=== PATIENT | female | born 1970 | race Caucasian/White ===

== ENCOUNTER 2020-03-30 12:49 | Emergency (ER) | payer SELFPAY ==
[~2020-03-30] VITALS: Ht 167.6 cm; Wt 57.3 kg
[2020-03-30] MEDS ORDERED: METOCLOPRAMIDE HCL 10 MG/2 ML VIAL. IV ONE (13:15)
[2020-03-30] MEDS ORDERED: KETOROLAC 30 MG/ML VIAL. IV ONE (13:15)
[2020-03-30] MEDS ORDERED: IV NORMAL SALINE 1,000ML 1,000 ML IV ONE (13:15)
[2020-03-30] MEDS ORDERED: diphenhydrAMINE 50 MG/ML VIAL IVP ONE (13:15)
[2020-03-30] MEDS ORDERED: ASPIRIN CHEWABLE 81 MG TABLET. PO ONE (13:15)
[2020-03-30 13:23] LABS: BASO # 0.1 x10^3/uL (0.0-0.2); BASO % 1 % (0-3); EOS # 0.1 x10^3/uL (0.0-0.7); EOS % 1 % (0-3); HEMATOCRIT 44.7 % (36.0-47.0); LYMPH # 1.9 x10^3/uL (1.0-4.8); LYMPH % 15 % (24-48); MEAN CORPUSCULAR HEMOGLOBIN 32 pg (25-35); MEAN CORPUSCULAR HGB CONC 33 g/dL (31-37); MEAN CORPUSCULAR VOLUME 97 fL (79-100); MONO # 0.8 x10^3/uL (0.0-1.1); MONO % 6 % (0-9); NEUT # 10.1 x10^3uL (1.8-7.7); NEUT % 78 % (31-73); PLATELET COUNT 164 x10^3/uL (140-400); RED BLOOD COUNT 4.63 x10^6/uL (3.50-5.40); WHITE BLOOD COUNT 12.9 x10^3/uL (4.0-11.0)
[2020-03-30 13:26] LABS: CALCIUM 9.3 mg/dL (8.5-10.1); CREATININE 0.9 mg/dL (0.6-1.0); GFR 66.3
--- NOTE | 2020-03-30 13:26 | RAD ---
Single AP view of the chest. Comparison: None. Indication: Chest pain Findings: The heart is not enlarged. There is no pneumothorax or effusion. No air space or interstitial disease. Impression: 1. No acute cardiopulmonary process. Electronically signed by: Rod Lockett MD (03/30/2020 1:22 PM) [id number]
[2020-03-30 13:31] LABS: ALBUMIN 3.8 g/dL (3.4-5.0); ALBUMIN/GLOBULIN RATIO 1.2 (1.0-1.7); TOTAL BILIRUBIN 0.4 mg/dL (0.2-1.0)
--- NOTE | 2020-03-30 13:35 | EKG ---
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
--- NOTE | 2020-03-30 14:33 | PHYS DOC ---
General Adult EDM: Chief Complaint: CHEST PAIN HPI: HPI: Patient is a 49-year-old female who presents with a litany of complaints today. She has had some vague sharp chest pain that she states is worse with a deep breath. She also states she is felt generally very weak she denies any fever chills or sweats. She denies any shortness of breath or dyspnea on exertion. She has had a headache and describes both photophobia phonophobia. She has had some nausea associated with her headache. She states her symptoms started several hours ago [] Review of Systems: Review of Systems: Constitutional: Denies fever or chills Eyes: Denies change in visual acuity HENT: Denies nasal congestion or sore throat Respiratory: Denies cough or shortness of breath Cardiovascular: Per HPI a GI: Denies abdominal pain, nausea, vomiting, bloody stools or diarrhea : Denies dysuria Musculoskeletal: Denies back pain or joint pain Integument: Denies rash Neurologic: Reports headache Endocrine: Denies polyuria or polydipsia Lymphatic: Denies swollen glands Psychiatric: Denies depression or anxiety Heart Score: Risk Factors: Risk Factors: DM, Current or recent (<one month) smoker, HTN, HLP, family history of CAD, obesity. Risk Scores: Score 0 - 3: 2.5% MACE over next 6 weeks - Discharge Home Score 4 - 6: 20.3% MACE over next 6 weeks - Admit for Clinical Observation Score 7 - 10: 72.7% MACE over next 6 weeks - Early Invasive Strategies Current Medications: Current Meds: Current Medications Medications (Trade) Dose Ordered Sig/[facility] Start Time Stop Time Status Last Admin Dose Admin Aspirin (Aspirin Chewable) 324 mg 1X ONCE 03/30/20 13:15 03/30/20 13:16 DC 03/30/20 13:15 324 MG Diphenhydramine HCl (Benadryl) 25 mg 1X ONCE 03/30/20 13:15 03/30/20 13:16 DC 03/30/20 13:15 25 MG Ketorolac Tromethamine (Toradol 30mg Vial) 30 mg 1X ONCE 03/30/20 13:15 03/30/20 13:16 DC 03/30/20 13:15 30 MG Metoclopramide HCl (Reglan Vial) 10 mg 1X ONCE 03/30/20 13:15 03/30/20 13:16 DC 03/30/20 13:15 10 MG Sodium Chloride 1,000 ml @ 1,000 mls/hr 1X ONCE 03/30/20 13:15 03/30/20 14:14 DC 03/30/20 13:15 1,000 MLS/HR Allergies: Allergies: Allergies Uncoded Allergies Type Severity Reaction Last Updated Verified PENICILLIN Allergy Unknown 03/30/20 SULFA Allergy Unknown 03/30/20 Physical Exam: PE: Constitutional: Well developed, well nourished, no acute distress, non-toxic appearance. [] HENT: Normocephalic, atraumatic, bilateral external ears normal, oropharynx moist, no oral exudates, nose normal. [] Eyes: PERRLA, EOMI, conjunctiva normal, no discharge. [] Neck: Normal range of motion, no tenderness, supple, no stridor. [] Cardiovascular:Heart rate regular rhythm, no murmur [] Lungs & Thorax: Bilateral breath sounds clear to auscultation [] Abdomen: Bowel sounds normal, soft, no tenderness, no masses, no pulsatile masses. [] Skin: Warm, dry, no erythema, no rash. [] Back: No tenderness, no CVA tenderness. [] Extremities: No tenderness, no cyanosis, no clubbing, ROM intact, no edema. [] Neurologic: Alert and oriented X 3, normal motor function, normal sensory function, no focal deficits noted. [] Psychologic: Affect normal, judgement normal, mood normal. [] Current Patient Data: Labs: Laboratory Tests Test 03/30/20 13:05 White Blood Count 12.9 x10^3/uL (4.0-11.0) H Red Blood Count 4.63 x10^6/uL (3.50-5.40) Hemoglobin 15.0 g/dL (12.0-15.5) Hematocrit 44.7 % (36.0-47.0) Mean Corpuscular Volume 97 fL (79-100) Mean Corpuscular Hemoglobin 32 pg (25-35) Mean Corpuscular Hemoglobin Concent 33 g/dL (31-37) Red Cell Distribution Width 14.0 % (11.5-14.5) Platelet Count 164 x10^3/uL (140-400) Neutrophils (%) (Auto) 78 % (31-73) H Lymphocytes (%) (Auto) 15 % (24-48) L Monocytes (%) (Auto) 6 % (0-9) Eosinophils (%) (Auto) 1 % (0-3) Basophils (%) (Auto) 1 % (0-3) Neutrophils # (Auto) 10.1 x10^3uL (1.8-7.7) H Lymphocytes # (Auto) 1.9 x10^3/uL (1.0-4.8) Monocytes # (Auto) 0.8 x10^3/uL (0.0-1.1) Eosinophils # (Auto) 0.1 x10^3/uL (0.0-0.7) Basophils # (Auto) 0.1 x10^3/uL (0.0-0.2) Sodium Level 140 mmol/L (136-145) Potassium Level 4.0 mmol/L (3.5-5.1) Chloride Level 104 mmol/L (98-107) Carbon Dioxide Level 24 mmol/L (21-32) Anion Gap 12 (6-14) Blood Urea Nitrogen 15 mg/dL (7-20) Creatinine 0.9 mg/dL (0.6-1.0) Estimated GFR (Cockcroft-Gault) 66.3 BUN/Creatinine Ratio 17 (6-20) Glucose Level 105 mg/dL (70-99) H Calcium Level 9.3 mg/dL (8.5-10.1) Total Bilirubin 0.4 mg/dL (0.2-1.0) Aspartate Amino Transferase (AST) 25 U/L (15-37) Alanine Aminotransferase (ALT) 40 U/L (14-59) Alkaline Phosphatase 162 U/L (46-116) H Troponin I Quantitative < 0.017 ng/mL (0-0.055) Total Protein 7.0 g/dL (6.4-8.2) Albumin 3.8 g/dL (3.4-5.0) Albumin/Globulin Ratio 1.2 (1.0-1.7) EKG: EKG: EKG: Normal sinus rhythm rate of [address]-T changes [] Radiology/Procedures: Radiology/Procedures: [] Impressions: REASON: chest pain PROCEDURE: CHEST AP ONLY Single AP view of the chest. Comparison: None. Indication: Chest pain Findings: The heart is not enlarged. There is no pneumothorax or effusion. No air space or interstitial disease. Impression: 1. No acute cardiopulmonary process. Course & Med Decision Making: Course & Med Decision Making Pertinent Labs and Imaging studies reviewed. (See chart for details) [ED course: Evaluation reveals a 49-year-old female with headache and sharp chest pain. She was given IV normal saline, Toradol, Reglan and Benadryl with complete resolution of her symptoms. I do not believe this was cardiac in nature. Given the fact that she feels much better I feel she is safe for discharge home.] Dragon Disclaimer: Dragon Disclaimer: This electronic medical record was generated, in whole or in part, using a voice recognition dictation system. Departure Departure: Impression: Primary Impression: Atypical chest pain Additional Impression: Migraine Qualified Codes: G43.009 - Migraine without aura, not intractable, without status migrainosus Disposition: HOME/RESIDENCE PRIOR TO ADM Condition: STABLE Referrals: PCP,NO (PCP) Patient Instructions: Chest Pain (Nonspecific), General Headache Without Cause Additional Instructions: Return to the emergency department with any new or concerning symptoms Justification of Admission: Justification of Admission: Justification of Admission Dx: ALEXA Singh DO Mar 30, 2020 14:33
[2020-03-30 15:02] VITALS: BP 113/58
== END 2020-03-30 14:40 | disposition home or self-care (01) ==
LOC: ER 12:49
DX: R07.89 Other chest pain (principal); G43.009 Migraine without aura, not intractable, without status migrainosus; Z88.0 Allergy status to penicillin; Z88.2 Allergy status to sulfonamides
CPT/HCPCS: 36415; 71045; 80053; 84484; 85025; 93005; 96374; 96375; 99285; J1200; J1885; J2765; J7030

== ENCOUNTER 2020-04-07 03:04 | Emergency (ER) | payer SELFPAY ==
[~2020-04-07] VITALS: Ht 167.6 cm; Wt 56.6 kg
[2020-04-07] MEDS ORDERED: LORazepam 1 MG TABLET PO ONE (03:45)
[2020-04-07 03:54] LABS: BASO % 0 % (0-3); EOS # 0.1 x10^3/uL (0.0-0.7); EOS % 1 % (0-3); HEMATOCRIT 45.2 % (36.0-47.0); HEMOGLOBIN 15.6 g/dL (12.0-15.5); LYMPH % 29 % (24-48); MEAN CORPUSCULAR HEMOGLOBIN 33 pg (25-35); MEAN CORPUSCULAR HGB CONC 35 g/dL (31-37); MEAN CORPUSCULAR VOLUME 95 fL (79-100); MONO # 0.6 x10^3/uL (0.0-1.1); MONO % 6 % (0-9); NEUT # 6.5 x10^3uL (1.8-7.7); NEUT % 64 % (31-73); PLATELET COUNT 163 x10^3/uL (140-400); RED BLOOD COUNT 4.74 x10^6/uL (3.50-5.40); RED CELL DISTRIBUTION WIDTH 13.7 % (11.5-14.5); WHITE BLOOD COUNT 10.2 x10^3/uL (4.0-11.0)
[2020-04-07 03:55] LABS: CALCIUM 9.3 mg/dL (8.5-10.1); CREATININE 1.3 mg/dL (0.6-1.0); GFR 43.4; POTASSIUM 3.3 mmol/L (3.5-5.1)
--- NOTE | 2020-04-07 04:06 | PHYS DOC ---
Past History Past Medical History: Anxiety, Depression, High Cholesterol, Hypertension, ND, Other Additional Past Medical Histor: TACHYCARDIA (KEELY MAY MD) Past Surgical History: Other Additional Past Surgical Histo: CARIDAC STENT (KEELY MAY MD) Alcohol Use: None (KEELY MAY MD) Adult General Chief Complaint Chief Complaint: DIARRHEA HPI HPI Patient is a 49 year old female who presents with multiple complaints. Patient states that for the last 24 hours she has been having episodes of diarrhea. She has had 5 episodes total. She initially thought that this was due to increase fluid intake. She also has some mild epigastric abdominal pain. Denies any nausea or vomiting. She has not had any constipation. She states this evening she started getting nervous that she could have the coronavirus. She got short of breath, dizzy, shaky. She is unsure if this is related to anxiety or is ca used by something else. (KEELY MAY MD) Review of Systems Review of Systems General: Denies fever, chills, sweats, fatigue Eyes: Denies drainage, blurred vision, eye redness HENT: Denies rhinorrhea, sore throat, earache Respiratory: Denies cough, shortness of breath, wheezing Cardiac: Denies edema, palpitations, chest pain GI: Reports nausea, epigastric pain, diarrhea MSK: Denies neck pain, back pain Skin: Denies rash, jaundice Neuro: Denies headache, dizziness Psychiatric: Denies SI/HI (KEELY MAY MD) Current Medications Current Medications Current Medications Medications (Trade) Dose Ordered Sig/Christina Start Time Stop Time Status Last Admin Dose Admin Lorazepam (Ativan) 1 mg 1X ONCE 04/07/20 03:45 04/07/20 03:46 UNV 04/07/20 03:48 1 MG (KEELY MAY MD) Allergies Allergies Allergies Uncoded Allergies Type Severity Reaction Last Updated Verified PENICILLIN Allergy Unknown 03/30/20 SULFA Allergy Unknown 03/30/20 (KEELY MAY MD) Physical Exam Physical Exam General: Awake, alert, NAD. Well Nourished, well hydrated. Cooperative HEENT: Atraumatic, EOMI, PERRL, airway patent, moist oral mucosa Neck: Supple, trachea midline Respiratory: CTA bilaterally, normal effort, no wheezing/crackles CV: RRR, no murmur, cap refill <2 GI: Soft, nondistended, nontender, no masses MSK: No obvious deformities Skin: Warm, dry, intact Neuro: A&O x3, speech NL, sensory and motor grossly intact, no focal deficits Psych: Normal affect, anxious, tearful d, not suicidal or homicidal (KEELY MAY MD) Current Patient Data Vital Signs Vital Signs Date Time Temp Pulse Resp B/P (MAP) Pulse Ox O2 Delivery O2 Flow Rate FiO2 04/07/20 03:21 97.3 100 18 133/52 (79) 98 Room Air Lab Results Laboratory Tests Test 04/07/20 03:20 White Blood Count 10.2 x10^3/uL (4.0-11.0) Red Blood Count 4.74 x10^6/uL (3.50-5.40) Hemoglobin 15.6 g/dL (12.0-15.5) H Hematocrit 45.2 % (36.0-47.0) Mean Corpuscular Volume 95 fL (79-100) Mean Corpuscular Hemoglobin 33 pg (25-35) Mean Corpuscular Hemoglobin Concent 35 g/dL (31-37) Red Cell Distribution Width 13.7 % (11.5-14.5) Platelet Count 163 x10^3/uL (140-400) Neutrophils (%) (Auto) 64 % (31-73) Lymphocytes (%) (Auto) 29 % (24-48) Monocytes (%) (Auto) 6 % (0-9) Eosinophils (%) (Auto) 1 % (0-3) Basophils (%) (Auto) 0 % (0-3) Neutrophils # (Auto) 6.5 x10^3uL (1.8-7.7) Lymphocytes # (Auto) 3.0 x10^3/uL (1.0-4.8) Monocytes # (Auto) 0.6 x10^3/uL (0.0-1.1) Eosinophils # (Auto) 0.1 x10^3/uL (0.0-0.7) Basophils # (Auto) 0.0 x10^3/uL (0.0-0.2) (KEELY MAY MD) EKG EKG [] (KEELY MAY MD) Radiology/Procedures Radiology/Procedures [] (KEELY MAY MD) Impressions: EXAM: CT Abdomen and Pelvis without IV contrast INDICATION: Reason: abdominal pain, hematuria / Spl. Instructions: / History: TECHNIQUE: Multi-detector row CT images were acquired from the lung bases through the abdomen and pelvis without the use of IV contrast. Sagittal and coronal images were acquired from the transaxial data. All CT scans performed at this facility utilize dose optimization techniques as appropriate to the exam, including the following: Automated exposure control and adjustment of the mA and/or KV according to patient size (this includes techniques or standardized protocols for targeted exams where dose is indication/reason for exam). ORAL CONTRAST: None COMPARISON: None FINDINGS: The absence of IV contrast limits evaluation of soft tissue pathology. LOWER CHEST: Unremarkable LIVER: Unremarkable BILIARY SYSTEM: Gallbladder is unremarkable. Bile ducts are not dilated. PANCREAS: Unremarkable SPLEEN: Unremarkable ADRENALS: Unremarkable KIDNEYS & URETERS: Minimal bilateral right greater than left pelviectasis is present with possible calcifications in the right mid ureter (image 87 of axial series 2) measuring 3.6 mm. Possible additional calcified stones in the presence slightly more distally as well. BLADDER: Unremarkable REPRODUCTIVE ORGANS: Unremarkable GASTROINTESTINAL: The stomach, small bowel, and colon are unremarkable. The appendix is normal. MESENTERY/PERITONEUM/RETROPERITONEUM: Unremarkable VASCULAR: Unremarkable LYMPH NODES: No adenopathy OSSEOUS & SOFT TISSUES: Unremarkable IMPRESSION: Possible stones in the mid to distal right ureter as described associated with right greater than left mild bilateral pelviectasis. Electronically signed by: Massimo Christianson MD (04/07/2020 5:56 AM) [facility] [place] DICTATED AND SIGNED BY: MASSIMO CHRISTIANSON MD DATE: 04/07/20 0556 CC: KEELY MAY MD; PCP,NO ~ (LINDA AGUILERA DO) Course & Med Decision Making Course & Med Decision Making Pertinent Labs and Imaging studies reviewed. (See chart for details) Patient is a 49-year-old female who presents to the emergency room with epigastric abdominal pain, diarrhea, anxiety. Patient does have some diarrhea as she does not have any other significant symptoms that would be concerning for coronavirus 19. She is overall well-appearing though anxious. Should be given Ativan to help with symptoms and will be reevaluated after that time. Cardiac work-up was ordered given her epigastric pain and history of cardiac disease including a troponin, chest x-ray, EKG. Abdominal labs were also ordered. Patient's abdomen is overall minimally tender. (KEELY MAY MD) Course & Med Decision Making The patient appears to have kidney stones in her ureters. The largest being 3.6 mm. This should pass. I will discharge her with a prescription for [place] 5/325 in case she has significant pain. She is stable for discharge at this time. (LINDA AGUILERA DO) Dragon Disclaimer Dragon Disclaimer This electronic medical record was generated, in whole or in part, using a voice recognition dictation system. (KEELY MAY MD) Departure Departure: Impression: Primary Impression: Diarrhea Additional Impressions: Epigastric abdominal pain Anxiety Kidney stone Disposition: HOME/RESIDENCE PRIOR TO ADM Condition: STABLE Referrals: PCP,NO (PCP) Scripts Hydrocodone Bit/Acetaminophen (NOR[place] 5-325 TABLET) 1 Each Tablet 1 TAB PO PRN Q6HRS PRN for PAIN, #10 TAB 0 Refills Prov: LINDA AGUILERA DO 04/07/20 Justification of Admission: Justification of Admission: Justification of Admission Dx: No (KEELY MAY MD) Problem Qualifiers KEELY MAY MD Apr 07, 2020 04:06 LINDA AGUILERA DO Apr 07, 2020 06:48
[2020-04-07 04:09] LABS: ALBUMIN 3.9 g/dL (3.4-5.0); TOTAL BILIRUBIN 0.6 mg/dL (0.2-1.0); TOTAL PROTEIN 7.7 g/dL (6.4-8.2)
[2020-04-07] MEDS ORDERED: IV NORMAL SALINE 1,000ML 1,000 ML IV ONE (04:45)
[2020-04-07 04:47] LABS: BILIRUBIN,URINE NEG (NEG); CLARITY,URINE CLEAR; COLOR,URINE YELLOW; GLUCOSE,URINE NEG (NEG); NITRITE,URINE NEG (NEG); RBC,URINE OCC /HPF (0-2)
[2020-04-07 04:48] LABS: BACTERIA,URINE FEW /HPF (0-FEW); SQUAMOUS EPITHELIAL CELL,UR FEW /LPF; WBC,URINE OCC /HPF (0-4)
--- NOTE | 2020-04-07 05:00 | RAD ---
EXAM: CHEST PA LATERAL INDICATION: Reason: sob / Spl. Instructions: / History: . TECHNIQUE: PA and lateral views COMPARISON: 03/30/2020 chest x-ray FINDINGS: The heart size is normal. The great vessels appear unremarkable. There is no hilar or mediastinal mass. The lungs are clear. There is no pleural effusion or pneumothorax. There are no significant osseous abnormalities. IMPRESSION: No active cardiopulmonary disease. Electronically signed by: Fernando Christianson MD (04/07/2020 4:57 AM) [facility] [place]
--- NOTE | 2020-04-07 05:48 | EKG ---
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
--- NOTE | 2020-04-07 05:59 | RAD ---
EXAM: CT Abdomen and Pelvis without IV contrast INDICATION: Reason: abdominal pain, hematuria / Spl. Instructions: / History: TECHNIQUE: Multi-detector row CT images were acquired from the lung bases through the abdomen and pelvis without the use of IV contrast. Sagittal and coronal images were acquired from the transaxial data. All CT scans performed at this facility utilize dose optimization techniques as appropriate to the exam, including the following: Automated exposure control and adjustment of the mA and/or KV according to patient size (this includes techniques or standardized protocols for targeted exams where dose is indication/reason for exam). ORAL CONTRAST: None COMPARISON: None FINDINGS: The absence of IV contrast limits evaluation of soft tissue pathology. LOWER CHEST: Unremarkable LIVER: Unremarkable BILIARY SYSTEM: Gallbladder is unremarkable. Bile ducts are not dilated. PANCREAS: Unremarkable SPLEEN: Unremarkable ADRENALS: Unremarkable KIDNEYS & URETERS: Minimal bilateral right greater than left pelviectasis is present with possible calcifications in the right mid ureter (image 87 of axial series 2) measuring 3.6 mm. Possible additional calcified stones in the presence slightly more distally as well. BLADDER: Unremarkable REPRODUCTIVE ORGANS: Unremarkable GASTROINTESTINAL: The stomach, small bowel, and colon are unremarkable. The appendix is normal. MESENTERY/PERITONEUM/RETROPERITONEUM: Unremarkable VASCULAR: Unremarkable LYMPH NODES: No adenopathy OSSEOUS & SOFT TISSUES: Unremarkable IMPRESSION: Possible stones in the mid to distal right ureter as described associated with right greater than left mild bilateral pelviectasis. Electronically signed by: Fernando Christianson MD (04/07/2020 5:56 AM) [facility] [place]
[2020-04-07] MEDS ORDERED: HYDR-3165 PO (06:47)
[2020-04-07 07:03] VITALS: BP 113/50
== END 2020-04-07 07:03 | disposition home or self-care (01) ==
LOC: ER 03:04
DX: R19.7 Diarrhea, unspecified (principal); R10.13 Epigastric pain; F41.9 Anxiety disorder, unspecified; F32.9 Major depressive disorder, single episode, unspecified; E78.00 Pure hypercholesterolemia, unspecified; I10 Essential (primary) hypertension; I25.2 Old myocardial infarction; Z87.442 Personal history of urinary calculi; Z88.0 Allergy status to penicillin; Z88.2 Allergy status to sulfonamides
CPT/HCPCS: 36415; 71046; 74176; 80053; 81001; 83690; 84484; 85025; 93005; 96360; 96361; 99285; J7030

== ENCOUNTER 2020-04-19 18:37 | Inpatient (IN) | payer SELFPAY ==
[~2020-04-19] VITALS: Ht 167.6 cm; Wt 55.3 kg
[~2020-04-19 18:37] MED LIST: HYDR-3165 PO
--- NOTE | 2020-04-19 18:46 | PHYS DOC ---
Past History Past Medical History: Anxiety, Depression, High Cholesterol, Hypertension, NM, Other Additional Past Medical Histor: TACHYCARDIA Past Surgical History: Other Additional Past Surgical Histo: CARIDAC STENT Smoking: Less than 1pk/day Alcohol Use: None General Adult EDM: Chief Complaint: chest pain HPI: HPI: Patient is a 49 year old female who presents for evaluation of central and left- sided chest pain that started 2 hours prior to arrival at rest. Patient had some shortness of air as well. Patient has multiple cardiac risk factors including hypertension, hyperlipidemia, known coronary artery disease, patient has cardiac stents placed about 4 years ago at [facility]. Patient has seen a evs attendant in the past several weeks and her beta-henrietta dose was reduced to 12.5 mg Review of Systems: Review of Systems: Constitutional: Denies fever or chills Eyes: Denies change in visual acuity HENT: Denies nasal congestion or sore throat Respiratory: Denies cough has shortness of breath Cardiovascular: has chest pain no edema GI: Denies abdominal pain, nausea, vomiting, bloody stools or diarrhea : Denies dysuria Musculoskeletal: Denies back pain or joint pain Integument: Denies rash Neurologic: Denies headache, focal weakness or sensory changes Endocrine: Denies polyuria or polydipsia Lymphatic: Denies swollen glands Psychiatric: Denies depression or anxiety Heart Score: HEART Score for Chest Pain: HEART Score for Chest Pain Response (Comments) Value History Slighlty/Non-Suspicious 0 ECG Nonspecific Repolarizatio 1 Age >45 - < 65 1 Risk Factors >3 Risk Factors or Hx CAD 2 Troponin < Normal Limit 0 Total 4 Risk Factors: Risk Factors: DM, Current or recent (<one month) smoker, HTN, HLP, family history of CAD, obesity. Risk Scores: Score 0 - 3: 2.5% MACE over next 6 weeks - Discharge Home Score 4 - 6: 20.3% MACE over next 6 weeks - Admit for Clinical Observation Score 7 - 10: 72.7% MACE over next 6 weeks - Early Invasive Strategies Allergies: Allergies: Allergies Uncoded Allergies Type Severity Reaction Last Updated Verified PENICILLIN Allergy Unknown 03/30/20 SULFA Allergy Unknown 03/30/20 Physical Exam: PE: Constitutional: Well developed, well nourished, mild acute distress, non-toxic appearance. [] HENT: Normocephalic, atraumatic, bilateral external ears normal, oropharynx moist, no oral exudates, nose normal. [] Eyes: PERRL, EOMI, conjunctiva normal, no discharge. [] Neck: Normal range of motion, no tenderness, supple. [] Cardiovascular:Heart rate regular rhythm, no murmur [] Lungs & Thorax: Bilateral breath sounds clear to auscultation [] Abdomen: Bowel sounds normal, soft, mild right side tenderness, no masses, no pulsatile masses. [] Skin: Warm, dry, no erythema, no rash. [] Back: No tenderness, no CVA tenderness. [] Extremities: No tenderness, no cyanosis, ROM intact, no edema. [] Neurologic: Alert and oriented, normal motor function, normal sensory function, no focal deficits noted. [] Psychologic: Affect normal, judgement normal, mood mildly anxious. [] Current Patient Data: Labs: Laboratory Tests Test 04/19/20 18:35 04/19/20 19:05 White Blood Count 8.4 x10^3/uL Red Blood Count 4.86 x10^6/uL Hemoglobin 15.9 g/dL Hematocrit 47.1 % Mean Corpuscular Volume 97 fL Mean Corpuscular Hemoglobin 33 pg Mean Corpuscular Hemoglobin Concent 34 g/dL Red Cell Distribution Width 14.0 % Platelet Count 169 x10^3/uL Neutrophils (%) (Auto) 68 % Lymphocytes (%) (Auto) 23 % Monocytes (%) (Auto) 8 % Eosinophils (%) (Auto) 1 % Basophils (%) (Auto) 1 % Neutrophils # (Auto) 5.8 x10^3uL Lymphocytes # (Auto) 1.9 x10^3/uL Monocytes # (Auto) 0.6 x10^3/uL Eosinophils # (Auto) 0.1 x10^3/uL Basophils # (Auto) 0.0 x10^3/uL Sodium Level 139 mmol/L Potassium Level 3.6 mmol/L Chloride Level 101 mmol/L Carbon Dioxide Level 27 mmol/L Anion Gap 11 Blood Urea Nitrogen 12 mg/dL Creatinine 1.0 mg/dL Estimated GFR (Cockcroft-Gault) 58.7 BUN/Creatinine Ratio 12 Glucose Level 84 mg/dL Calcium Level 9.2 mg/dL Total Bilirubin 0.6 mg/dL Aspartate Amino Transf (AST/SGOT) 29 U/L Alanine Aminotransferase (ALT/SGPT) 38 U/L Alkaline Phosphatase 163 U/L Troponin I Quantitative < 0.017 ng/mL Total Protein 7.1 g/dL Albumin 3.9 g/dL Albumin/Globulin Ratio 1.2 Lipase 87 U/L Urine Collection Type Unknown Urine Color Yellow Urine Clarity Hazy Urine pH 6.0 Urine Specific [place] 1.010 Urine Protein Neg Urine Glucose (UA) Neg mg/dL Urine Ketones (Stick) Neg mg/dL Urine Blood Neg Urine Nitrite Neg Urine Bilirubin Neg Urine Urobilinogen Dipstick 0.2 mg/dL Urine Leukocyte Esterase Trace Urine RBC 3-5 /HPF Urine WBC 5-10 /HPF Urine Squamous Epithelial Cells Many /LPF Urine Bacteria Mod /HPF Current Medications Medications (Trade) Dose Ordered Sig/Christina Route PRN Reason Start Time Stop Time Status Last Admin Dose Admin Aspirin (Aspirin Chewable) 243 mg 1X ONCE PO 04/19/20 19:00 04/19/20 19:01 DC 04/19/20 19:07 EKG: EKG: EKG showed normal sinus rhythm, rate 70, leftward axis, nonspecific ST segment change and flattened T wave in lead aVL, not STEMI read at 1849 [] Radiology/Procedures: Radiology/Procedures: [place] [address] IMAGING REPORT Signed PATIENT: AMANUEL RUFF IACCOUNT: [id number] : 1970 LOCATION: ER AGE: 49 SEX: F EXAM STATUS: REG ER ORD. PHYSICIAN: OMAR MOYA DO REASON: chest pain PROCEDURE: PORTABLE CHEST 1V Exam: Chest one view INDICATION: Chest pain TECHNIQUE: Frontal view of the chest Comparisons: 04/07/2020 FINDINGS: The cardiomediastinal silhouette and pulmonary vessels are within normal limits. The lung and pleural spaces are clear. IMPRESSION: No acute cardiopulmonary process. Electronically signed by: Diana Rosales MD (04/19/2020 7:10 PM) [id number] DICTATED AND SIGNED BY: DIANA ROSALES MD DATE: 04/19/20 1910 CC: PCP,NO; OMAR MOYA DO ~ [] Course & Med Decision Making: Course & Med Decision Making Pertinent Labs and Imaging studies reviewed. (See chart for details) [] Dragon Disclaimer: Dragon Disclaimer: This electronic medical record was generated, in whole or in part, using a voice recognition dictation system. 1957 patient has some continued mild substernal chest pain. First troponin, EKG and chest x-ray were unremarkable. Patient's evs attendant is at [facility]. Dr. Reddy is the hospitalist on duty and has accepted patient for telemetry bed for observation Departure Departure: Impression: Primary Impression: Precordial chest pain Additional Impression: Acute UTI Disposition: ADMITTED INPATIENT Admitting Physician: Rustam Reddy Condition: STABLE Referrals: PCP,NO (PCP) Justification of Admission: Justification of Admission: Justification of Admission Dx: Yes Angina: Symp at Rest OMAR MOYA DO Apr 19, 2020 18:46
[2020-04-19] MEDS ORDERED: ASPIRIN CHEWABLE 81 MG TABLET. PO ONE (19:00)
--- NOTE | 2020-04-19 19:13 | RAD ---
Exam: Chest one view INDICATION: Chest pain TECHNIQUE: Frontal view of the chest Comparisons: 04/07/2020 FINDINGS: The cardiomediastinal silhouette and pulmonary vessels are within normal limits. The lung and pleural spaces are clear. IMPRESSION: No acute cardiopulmonary process. Electronically signed by: Diana Hebert MD (04/19/2020 7:10 PM) [id number]
[2020-04-19 19:30] LABS: BASO % 1 % (0-3); EOS # 0.1 x10^3/uL (0.0-0.7); EOS % 1 % (0-3); HEMATOCRIT 47.1 % (36.0-47.0); HEMOGLOBIN 15.9 g/dL (12.0-15.5); LYMPH # 1.9 x10^3/uL (1.0-4.8); LYMPH % 23 % (24-48); MEAN CORPUSCULAR HEMOGLOBIN 33 pg (25-35); MEAN CORPUSCULAR HGB CONC 34 g/dL (31-37); MEAN CORPUSCULAR VOLUME 97 fL (79-100); MONO # 0.6 x10^3/uL (0.0-1.1); MONO % 8 % (0-9); NEUT # 5.8 x10^3uL (1.8-7.7); NEUT % 68 % (31-73); PLATELET COUNT 169 x10^3/uL (140-400); RED BLOOD COUNT 4.86 x10^6/uL (3.50-5.40); WHITE BLOOD COUNT 8.4 x10^3/uL (4.0-11.0)
[2020-04-19 19:36] LABS: CALCIUM 9.2 mg/dL (8.5-10.1); GFR 58.7; POTASSIUM 3.6 mmol/L (3.5-5.1)
[2020-04-19 19:38] LABS: BILIRUBIN,URINE NEG (NEG); CLARITY,URINE HAZY; COLOR,URINE YELLOW; GLUCOSE,URINE NEG (NEG)
[2020-04-19 19:39] LABS: BACTERIA,URINE MOD /HPF (0-FEW); NITRITE,URINE NEG (NEG); SQUAMOUS EPITHELIAL CELL,UR MANY /LPF; UROBILINOGEN,URINE 0.2 mg/dL (0.2 mg/dL)
[2020-04-19 19:42] LABS: ALBUMIN 3.9 g/dL (3.4-5.0); ALBUMIN/GLOBULIN RATIO 1.2 (1.0-1.7); TOTAL BILIRUBIN 0.6 mg/dL (0.2-1.0); TOTAL PROTEIN 7.1 g/dL (6.4-8.2)
[2020-04-19] MEDS ORDERED: NITROFURANTOIN MONOHYD/M-CRYST 100 MG CAPSULE. PO ONE (20:00)
[2020-04-19] MEDS ORDERED: MORPHINE SULFATE 4 MG/ML DISP.SYRIN. IV ONE (20:00)
[2020-04-19] MEDS ORDERED: ONDANSETRON PF 4 MG/2 ML VIAL. IVP PRN (20:15)
[2020-04-19] MEDS ORDERED: MORPHINE SULFATE 2 MG/ML DISP.SYRIN. IVP PRN (20:15)
--- NOTE | 2020-04-19 21:00 | NUR ---
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 Pt. was calm and cooperative during assessment despite mentioning she does have severe anxiety. Pt. provided at home med list during assessment a copy was made and given back to pt. Pt. had complaints of pain in RLQ of abdomen in ED. Pt. stated that she felt "Foggy" from the Morphine given in ED to help w/ pain. POC discussed w/ pt. Pt had verbal understanding of POC. Pt is resting now comfortably w/ no complaints of pain at this time and call light in reach.
[2020-04-19 21:03] VITALS: BP 111/68
--- NOTE | 2020-04-20 01:00 | EKG ---
[address] [address] Test Date: 2020-04-19 Test Time: 18:45:21 Pat Name: AMANUEL RUFF Department: Room: Gender: F Resident Programs Assistant: : 1970 Requested By: OMAR MOYA Order Number: [id number] Reading MD: Measurements Intervals [place] Rate: 70 P: 65 GA: 130 QRS: 2 QRSD: 88 T: 49 QT: 398 QTc: 433 Interpretive Statements SINUS RHYTHM NORMAL ECG RI6.02 No previous ECG available for comparison
[2020-04-20] MEDS ORDERED: METO-239 PO (03:00)
[2020-04-20] MEDS ORDERED: ATORVASTATIN CA80 MG PO (03:00)
[2020-04-20] MEDS ORDERED: PANT40TA6 PO (03:00)
[2020-04-20] MEDS ORDERED: DULO20CA50 PO (03:00)
[2020-04-20] MEDS ORDERED: NICO1PAT21 TD (03:00)
[2020-04-20] MEDS ORDERED: ASPI-630 PO (03:00)
[2020-04-20] MEDS ORDERED: CLON0.5T4 PO (03:00)
[2020-04-20 05:34] VITALS: BP 98/54
[2020-04-20] MEDS ORDERED: HYDROcodone/APAP 5/325MG 1 TAB TABLET PO PRN (09:15)
[2020-04-20] MEDS ORDERED: clonazePAM 0.5 MG TABLET PO PRN (09:15)
--- NOTE | 2020-04-20 09:17 | HP ---
ADMIT DATE: 04/20/2020 ATTENDING PHYSICIAN: Dr. Ornelas. CHIEF COMPLAINT: Chest pain. HISTORY OF PRESENT ILLNESS: The patient is a 49-year-old female admitted with central left sided chest pain started 2 hours prior to arrival to the ED, she had some shortness of breath. There is a strong anxiety component. She has cardiac risk factors including hypertension, smoking and known coronary artery disease with an VA 4 years ago. She had cardiac stents placed at [facility]. She does not have a local primary care physician. In the ED, she had a negative EKG, normal chest x-ray and the first set of enzymes were negative. She was admitted for overnight observation and serial cardiac enzymes. PAST MEDICAL HISTORY: Significant for anxiety, depression, hyperlipidemia, hypertension, previous VA at age 45 with 2 stents. ALLERGIES: SHE HAS ALLERGIES TO PENICILLIN AND SULFA. CURRENT MEDICATIONS: Include the low dose metoprolol 12.5 mg daily. She is on an aspirin daily. She is on Cymbalta 30 mg, Lipitor 80 mg daily, Klonopin 0.5 mg t.i.d., hydrocodone p.r.n., nicotine patch and Protonix. She continues to smoke. She denies any alcohol use. She is not taking any ousq-egf-[id number] anti-inflammatory drugs. FAMILY HISTORY: Noncontributory. SOCIAL HISTORY: She is unemployed. REVIEW OF SYSTEMS: She was laid off. She has significant anxiety and depression regarding the loss of her job as well as loss of her freedom from the pandemic. This has contributed to her stress. No fevers, chills or COVID-19 exposure. All other systems reviewed and turned to be negative. PHYSICAL EXAMINATION: GENERAL: When I saw her, this is a pleasant woman who appears older than stated age. INITIAL VITAL SIGNS: Showed a blood pressure 109/75, pulse is 76 and regular. She was afebrile, oxygen saturation 98% on room air. HEENT: Head is without trauma. Pupils are reactive. Sclerae nonicteric. The oropharynx is clear. NECK: Supple, no bruits. LUNGS: Clear. CARDIOVASCULAR: Showed regular heart tones. No gallops. Peripheral pulses are palpable and full. ABDOMEN: Soft, scaphoid, nontender, no organomegaly. Bowel sounds were hypoactive. EXTREMITIES: Showed no cyanosis or edema. NEUROLOGIC: Findings focally intact. PERTINENT LABORATORY DATA: The first set of cardiac enzymes was negative for myocardial necrosis. Hemoglobin 15.9 grams, white count 8400. Electrolytes, BUN and creatinine all within normal range. ASSESSMENT: 1. A 49-year-old female with atypical chest pain, noncardiac in nature. 2. Known history of coronary artery disease. 3. Hypertension, currently normotensive. 4. Severe and significant anxiety with depression component. 5. Previous history of coronary artery disease with stents. PLAN: 1. Observation status. 2. Telemetry monitoring. 3. Serial cardiac enzymes. 4. Continue home meds. 5. Diet as tolerated. ESME ORNELAS MD DR: ABBE/elmira JOB#: [id number] / [id number]
[2020-04-20] MEDS ORDERED: DULoxetine HCL 20 MG CAPSULE.DR PO SCH (09:30)
[2020-04-20] MEDS ORDERED: PANTOPRAZOLE 40 MG TABLET. PO SCH (09:30)
[2020-04-20] MEDS ORDERED: ASPIRIN CHEWABLE 81 MG TABLET. PO SCH (09:30)
--- NOTE | 2020-04-20 10:01 | DS ---
DATE OF DISCHARGE: 04/20/2020 ATTENDING PHYSICIAN: Dr. Ornelas. FINAL DISCHARGE DIAGNOSES: 1. Atypical chest pain, noncardiac. 2. Strong anxiety and depression component. 3. Chronic obstructive pulmonary disease. 4. Continued tobacco addiction. 5. Previous history of heart disease with stents. 6. Essential hypertension. HISTORY OF PRESENT ILLNESS: This 49-year-old female presented to the ED with chest pain, atypical left sided in nature. She has a history of heart disease with other risk factors. She had stents placed 4 years ago. In the ED, her EKG and x-ray were nondiagnostic. First set of enzymes is negative. She was admitted for further treatment and serial enzymes. PHYSICAL EXAMINATION: Please see the dictated note. PERTINENT LABORATORY AND X-RAY STUDIES: Three sets of cardiac enzymes were negative for myocardial necrosis. Electrolytes were all within normal range. Hemoglobin 15.9 grams with a white count of 8400. COURSE IN THE HOSPITAL: The patient was admitted. She had serial cardiac enzymes, chest pain subsided. We encouraged her to continue her Klonopin and her Cymbalta. She was medically stable. Her heart rate and blood pressures were adequate and she was perfusing well. There is a strong anxiety component. I suggested a followup with the primary care physician. There are no changes on her home meds. She will continue her Klonopin 3 times a day, Cymbalta 30 mg daily. We will hold the 12.5 mg of metoprolol as this is not needed. She is normotensive and her aspirin and Lipitor doses are unchanged. She was discharged from our hospital in stable condition with explicit instructions and followup care. ESME ORNELAS MD DR: ABBE/elmira JOB#: [id number] / [id number]
--- NOTE | 2020-04-20 11:10 | NUR ---
NSG NOTE; DISCHARGE VERBAL AND WRITTEN DISCHARGE INSTRUCTIONS GIVEN TO PT WITH VERBAL UNDERSTANDING DISCHARGE TO HOME AT [address] [facility] BY SO WHO PICKED HER UP
[2020-04-20] MEDS ORDERED: METOPROLOL SUCC 24HR ER 25 MG TAB.ER.24H. PO SCH (21:00)
== END 2020-04-20 11:08 | disposition home or self-care (01) | DRG 313 ==
LOC: ER 18:37 → 1 SOUTH 20:00
PROVIDERS: ADMIT Hospitalist; ATTEND Hospitalist
DX: R07.89 Other chest pain (principal); N39.0 Urinary tract infection, site not specified; E78.00 Pure hypercholesterolemia, unspecified; E78.5 Hyperlipidemia, unspecified; F41.8 Other specified anxiety disorders; I10 Essential (primary) hypertension; I25.10 Atherosclerotic heart disease of native coronary artery without angina pectoris; I25.2 Old myocardial infarction; J44.9 Chronic obstructive pulmonary disease, unspecified; Z79.899 Other long term (current) drug therapy; Z95.5 Presence of coronary angioplasty implant and graft; Z88.0 Allergy status to penicillin; Z88.2 Allergy status to sulfonamides
CPT/HCPCS: 36415; 71045; 80053; 81001; 82947; 83690; 84484; 85025; 93005; 96374; J2270; J2405; 99285-25

== ENCOUNTER 2020-05-16 22:23 | Emergency (ER) | payer SELFPAY ==
[~2020-05-16] VITALS: Ht 165.1 cm; Wt 54.1 kg
[~2020-05-16 22:23] MED LIST changes: +ASPI-630 PO; +ATORVASTATIN CA80 MG PO; +CLON0.5T4 PO; +DULO20CA50 PO; +METO-239 PO; +NICO1PAT21 TD; +PANT40TA6 PO
[2020-05-16] MEDS ORDERED: clonazePAM 1 MG TABLET PO PRN (23:15)
--- NOTE | 2020-05-16 23:18 | PHYS DOC ---
Past History Past Medical History: Anxiety, CAD Additional Past Medical Histor: TACHYCARDIA Past Surgical History: Other Additional Past Surgical Histo: coronary stent Smoking: Less than 1pk/day Alcohol Use: None General Adult EDM: Chief Complaint: ABDOMINAL PAIN HPI: HPI: 49-year-old female presents with lower abdominal pain and decreased appetite. The patient had gallbladder surgery 2 weeks ago. Her incisions are healing well, but she has some suprapubic abdominal pain today. She is worried about what this may mean. She has had decreased appetite the past 2 days. She has had some nausea but no vomiting. She denies fever or chills. No known COVID-19 exposures. Review of Systems: Review of Systems: Constitutional: Denies fever or chills Eyes: Denies change in visual acuity HENT: Denies nasal congestion or sore throat Respiratory: Denies cough or shortness of breath Cardiovascular: Denies chest pain or edema GI: Suprapubic abdominal pain, nausea. Denies vomiting, bloody stools or diarrhea : Denies dysuria Musculoskeletal: Denies back pain or joint pain Integument: Denies rash Neurologic: Denies headache, focal weakness or sensory changes Endocrine: Denies polyuria or polydipsia Lymphatic: Denies swollen glands Psychiatric: anxiety Heart Score: Risk Factors: Risk Factors: DM, Current or recent (<one month) smoker, HTN, HLP, family history of CAD, obesity. Risk Scores: Score 0 - 3: 2.5% MACE over next 6 weeks - Discharge Home Score 4 - 6: 20.3% MACE over next 6 weeks - Admit for Clinical Observation Score 7 - 10: 72.7% MACE over next 6 weeks - Early Invasive Strategies Current Medications: Current Meds: Current Medications Medications (Trade) Dose Ordered Sig/Christina Start Time Stop Time Status Last Admin Dose Admin Clonazepam (KlonoPIN) 0.5 mg 1X PRN 05/16/20 23:15 UNV Ondansetron HCl (Zofran) 4 mg 1X ONCE 05/16/20 23:15 05/16/20 23:16 UNV Sodium Chloride 1,000 ml @ 1,000 mls/hr 1X ONCE 05/16/20 23:15 05/17/20 00:14 UNV Allergies: Allergies: Allergies Coded Allergies Type Severity Reaction Last Updated Verified Penicillins Allergy Unknown 04/20/20 Yes Sulfa (Sulfonamide Antibiotics) Allergy Unknown 04/20/20 Yes Physical Exam: PE: Constitutional: Well developed, well nourished, no acute distress, non-toxic appearance. [] HENT: Normocephalic, atraumatic, bilateral external ears normal, oropharynx moist, no oral exudates, nose normal. [] Eyes: PERRLA, EOMI, conjunctiva normal, no discharge. [] Neck: Normal range of motion, no tenderness, supple, no stridor. [] Cardiovascular:Heart rate regular rhythm, no murmur [] Lungs & Thorax: Bilateral breath sounds clear to auscultation [] Abdomen: Bowel sounds normal, soft, appropriately healing surgical scars, mild suprapubic tenderness, no masses, no pulsatile masses. [] Skin: Warm, dry, no erythema, no rash. [] Back: No tenderness, no CVA tenderness. [] Extremities: No tenderness, no cyanosis, no clubbing, ROM intact, no edema. [] Neurologic: Alert and oriented X 3, normal motor function, normal sensory function, no focal deficits noted. [] Psychologic: Affect normal, judgement normal, mood anxious. [] EKG: EKG: [] Radiology/Procedures: Radiology/Procedures: [] Course & Med Decision Making: Course & Med Decision Making Pertinent Labs and Imaging studies reviewed. (See chart for details) Patient's labs are unremarkable. Her urinalysis is negative for infection. It seems as though the most likely source of the patient's discomfort is her continued healing from her surgery. I have advised conservative care such as ibuprofen and Tylenol. I do not have any reason to admit the patient. The patient is reassured by these results. She is stable for discharge at this time . [] Dragon Disclaimer: Dragtiffany Disclaimer: This electronic medical record was generated, in whole or in part, using a voice recognition dictation system. Departure Departure: Impression: Primary Impression: Abdominal pain Qualified Codes: R10.30 - Lower abdominal pain, unspecified Disposition: HOME/RESIDENCE PRIOR TO ADM Condition: STABLE Referrals: PCP,NO (PCP) Patient Instructions: Abdominal Pain, [id number] Justification of Admission: Justification of Admission: Justification of Admission Dx: N/A Angina: [facility] LINDA AGUILERA DO May 16, 2020 23:18
[2020-05-16 23:23] LABS: BASO % 1 % (0-3); EOS % 0 % (0-3); HEMATOCRIT 47.3 % (36.0-47.0); HEMOGLOBIN 16.2 g/dL (12.0-15.5); LYMPH # 2.9 x10^3/uL (1.0-4.8); LYMPH % 28 % (24-48); MEAN CORPUSCULAR HEMOGLOBIN 33 pg (25-35); MEAN CORPUSCULAR HGB CONC 34 g/dL (31-37); MEAN CORPUSCULAR VOLUME 95 fL (79-100); MONO # 0.6 x10^3/uL (0.0-1.1); MONO % 6 % (0-9); NEUT % 66 % (31-73); PLATELET COUNT 287 x10^3/uL (140-400); RED BLOOD COUNT 4.98 x10^6/uL (3.50-5.40); RED CELL DISTRIBUTION WIDTH 13.6 % (11.5-14.5); WHITE BLOOD COUNT 10.7 x10^3/uL (4.0-11.0)
[2020-05-16 23:26] LABS: GFR 58.7; POTASSIUM 3.7 mmol/L (3.5-5.1)
[2020-05-16 23:30] LABS: BACTERIA,URINE 0 /HPF (0-FEW); BILIRUBIN,URINE NEG (NEG); CLARITY,URINE CLEAR; COLOR,URINE YELLOW; GLUCOSE,URINE NEG (NEG); NITRITE,URINE NEG (NEG); RBC,URINE 0 /HPF (0-2); SQUAMOUS EPITHELIAL CELL,UR OCC /LPF; UROBILINOGEN,URINE 0.2 mg/dL (0.2 mg/dL); WBC,URINE OCC /HPF (0-4)
[2020-05-16] MEDS ORDERED: IV NORMAL SALINE 1,000ML 1,000 ML IV ONE (23:30)
[2020-05-16] MEDS ORDERED: ONDANSETRON PF 4 MG/2 ML VIAL. IVP ONE (23:30)
[2020-05-16 23:32] LABS: ALBUMIN 4.4 g/dL (3.4-5.0); ALBUMIN/GLOBULIN RATIO 0.9 (1.0-1.7); TOTAL BILIRUBIN 0.9 mg/dL (0.2-1.0); TOTAL PROTEIN 9.2 g/dL (6.4-8.2)
[2020-05-16 23:42] VITALS: BP 111/65
== END 2020-05-17 00:10 | disposition home or self-care (01) ==
LOC: ER 22:23
DX: R10.30 Lower abdominal pain, unspecified (principal); R63.0 Anorexia; R11.0 Nausea; F41.9 Anxiety disorder, unspecified; I25.10 Atherosclerotic heart disease of native coronary artery without angina pectoris; F17.200 Nicotine dependence, unspecified, uncomplicated; Z88.0 Allergy status to penicillin; Z88.2 Allergy status to sulfonamides
CPT/HCPCS: 36415; 80053; 81001; 85025; 96361; 96374; 99283; J2405; J7030

== ENCOUNTER 2020-06-20 22:43 | Emergency (ER) | payer SELFPAY ==
[~2020-06-20] VITALS: Ht 165.1 cm; Wt 54.1 kg
[2020-06-20 22:48] VITALS: BP 142/63
[2020-06-20] MEDS ORDERED: CHLO15MO2 PO (23:11)
[2020-06-20] MEDS ORDERED: CLIN300C8 PO (23:11)
[2020-06-20] MEDS ORDERED: HYDR-3165 PO (23:11)
[2020-06-20] MEDS ORDERED: PRED20TA PO (23:11)
--- NOTE | 2020-06-20 23:11 | PHYS DOC ---
Past History Past Medical History: Anxiety, CAD, Gallstones, [place] Additional Past Medical Histor: TACHYCARDIA Past Surgical History: Cholecystectomy, Other Additional Past Surgical Histo: coronary stent, bile duct Smoking: Less than 1pk/day Alcohol Use: None General Adult EDM: Chief Complaint: DENTAL PROBLEM HPI: HPI: Patient is a 49-year-old female who presents with left sided dental pain that started 2 days ago. The pain is located in the region of her left upper front tooth. Patient states that she has been taking Tylenol and Ibuprofen with no improvement of her symptoms. She denies any fevers, body aches, or vomiting but reports to chills, nausea, and lightheadedness. She has a dentist appointment scheduled for next week but she states she was unable to bear the pain. She denies any recent dental procedures. Review of Systems: Review of Systems: Constitutional: Denies fever or body aches, reports chills and decreased appetite Eyes: Denies redness or eye pain HENT: Denies nasal congestion or sore throat, reports to left-sided dental pain in her upper front tooth Respiratory: Denies cough or shortness of breath Cardiovascular: Denies chest pain or palpitations GI: Denies abdominal pain, nausea, or vomiting : Denies dysuria or hematuria Musculoskeletal: Denies back pain or joint pain Integument: Denies rash or skin lesions Neurologic: Denies headache, focal weakness or sensory changes Complete systems were reviewed and found to be within normal limits, except as documented in this note. Allergies: Allergies: Allergies Coded Allergies Type Severity Reaction Last Updated Verified Penicillins Allergy Unknown 04/20/20 Yes Sulfa (Sulfonamide Antibiotics) Allergy Unknown 04/20/20 Yes Physical Exam: PE: Constitutional: Well developed, well nourished, no acute distress, non-toxic appearance HENT: Normocephalic, atraumatic, mild erythema to gingiva in the region of left upper front tooth with tenderness to palpation, absence of upper frontal teeth Eyes: PERRL, EOMI, conjunctiva normal, no discharge Neck: Normal range of motion, no tenderness, supple Lungs & Thorax: No respiratory distress, equal chest rise and fall Abdomen: Soft, no tenderness Skin: Warm, dry, no erythema, no rash Back: No tenderness, no CVA tenderness Extremities: No tenderness, ROM intact, no edema Neurologic: Alert and oriented X 3, normal motor function, normal sensory function, no focal deficits noted Psychologic: Affect normal, judgment normal Current Patient Data: Vital Signs: Vital Signs Date Time Temp Pulse Resp B/P (MAP) Pulse Ox O2 Delivery O2 Flow Rate FiO2 06/20/20 22:48 99.7 79 15 142/63 (89) 98 Course & Med Decision Making: Course & Med Decision Making Pertinent Labs and Imaging studies reviewed. (See chart for details) Patient is a 49-year-old female who presents with left sided dental pain that started 2 days ago. Patient was given antibiotics, steroids and Toradol for her pain with improvement to her symptoms. I suspect she may have dental caries and instructed her follow up with her dentist for further evaluation. She will be sent home with a prescription for pain medication and continued regimen of steroids and antibiotics. Patient stable for discharge with outpatient follow-up with her dentist. Discussed findings and plan with patient, who acknowledges understanding and agreement. Dragon Disclaimer: Dragon Disclaimer: This electronic medical record was generated, in whole or in part, using a voice recognition dictation system. Departure Departure: Impression: Primary Impression: Dentalgia Additional Impression: Dental caries Disposition: HOME/RESIDENCE PRIOR TO ADM Condition: STABLE Referrals: PCP,NO (PCP) Patient Instructions: Dental Caries, Toothache-Brief Scripts Hydrocodone Bit/Acetaminophen (NORCO 5-325 TABLET) 1 Each Tablet 0.5-1 TAB PO Q6HRS PRN for PAIN, #10 TAB Prov: MARIO TOWNSEND DO 06/20/20 Chlorhexidine Gluconate (PERIDEX) 15 Ml Mouthwash 15 ML PO BID for Dental Infection for 7 Days, #473 ML 0 Refills Prov: MARIO TOWNSEND DO 06/20/20 Prednisone (PREDNISONE) 20 Mg Tablet 2 TAB PO DAILY for Dental pain, #8 TAB Prov: MARIO TOWNSEND DO 06/20/20 Clindamycin Hcl (CLINDAMYCIN HCL) 300 Mg Capsule 1 CAP PO TID for Dental infection for 7 Days, #21 CAP Prov: MARIO TOWNSEND DO 06/20/20 MARIO TOWNSEND DO Jun 20, 2020 23:11
[2020-06-20] MEDS ORDERED: CLINDAMYCIN HCL 150 MG CAPSULE PO ONE (23:30)
[2020-06-20] MEDS ORDERED: DEXAMETHASONE 4 MG TABLET PO ONE (23:30)
[2020-06-20] MEDS ORDERED: KETOROLAC 30 MG/ML VIAL. IM ONE (23:30)
== END 2020-06-20 23:35 | disposition home or self-care (01) ==
LOC: ER 22:43
DX: K02.9 Dental caries, unspecified (principal); F41.9 Anxiety disorder, unspecified; I25.10 Atherosclerotic heart disease of native coronary artery without angina pectoris; F17.200 Nicotine dependence, unspecified, uncomplicated; I25.2 Old myocardial infarction; Z88.0 Allergy status to penicillin; Z88.2 Allergy status to sulfonamides
CPT/HCPCS: 96372; 99283; J1885; J8540

== ENCOUNTER 2020-07-18 23:52 | Emergency (ER) | payer SELFPAY ==
[~2020-07-18] VITALS: Ht 165.1 cm; Wt 52.3 kg
[~2020-07-18 23:52] MED LIST changes: +CHLO15MO2 PO; +CLIN300C8 PO; +PRED20TA PO
--- NOTE | 2020-07-19 00:07 | PHYS DOC ---
Past History Past Medical History: Anxiety, CAD, Gallstones, [place] Additional Past Medical Histor: TACHYCARDIA Past Surgical History: Cholecystectomy, Other Additional Past Surgical Histo: coronary stent, bile duct Smoking: Less than 1pk/day Alcohol Use: None General Adult EDM: Chief Complaint: NAUSEA/VOMITING/DIARRHEA HPI: HPI: Patient is a 49 year old female who presents for evaluation of diffuse mid and lower abdominal pain and cramping as well as recurrent episodes of diarrhea over the past 2 days. Patient denies any black, bloody or tarry stools. She does have recent reported low-grade fever and chills as well as moderate fatigue. Patient denies any exposure to anyone that is ill. She also denies any exposure to any known Covid positive person. Patient was in mild to early moderate distress on arrival. Review of Systems: Review of Systems: Constitutional: has fever or chills Eyes: Denies change in visual acuity HENT: Denies nasal congestion or sore throat Respiratory: Denies cough or shortness of breath Cardiovascular: Denies chest pain or edema GI: diffuse mid/lower abdominal pain with nausea, vomiting and diarrhea, no b loody stools : Denies dysuria Musculoskeletal: Denies back pain or joint pain Integument: Denies rash Neurologic: Denies headache, focal weakness or sensory changes Endocrine: Denies polyuria or polydipsia Lymphatic: Denies swollen glands Psychiatric: Denies depression has anxiety Current Medications: Current Meds: Current Medications Medications (Trade) Dose Ordered Sig/Christina Start Time Stop Time Status Last Admin Dose Admin Ondansetron HCl (Zofran) 4 mg 1X ONCE 07/19/20 00:00 07/19/20 00:01 UNV Sodium Chloride 1,000 ml @ 1,000 mls/hr Q1H 07/18/20 23:59 07/19/20 00:58 UNV Allergies: Allergies: Allergies Coded Allergies Type Severity Reaction Last Updated Verified cyproheptadine Allergy Intermediate 07/19/20 Yes Penicillins Allergy Unknown 07/19/20 Yes Sulfa (Sulfonamide Antibiotics) Allergy Unknown 07/19/20 Yes Physical Exam: PE: Constitutional: Well developed, well nourished, mild acute distress, non-toxic appearance. [] HENT: Normocephalic, atraumatic, bilateral external ears normal, oropharynx moist, no oral exudates, nose normal. [] Eyes: PERRL, EOMI, conjunctiva normal, no discharge. [] Neck: Normal range of motion, no tenderness, supple. [] Cardiovascular:Heart rate regular rhythm, no murmur [] Lungs & Thorax: Bilateral breath sounds clear to auscultation [] Abdomen: Bowel sounds normal, soft, minimal mid/lower abd tenderness, no masses, no pulsatile masses. [] Skin: Warm, dry, no erythema, no rash. [] Back: No tenderness, no CVA tenderness. [] Extremities: No tenderness, no cyanosis, ROM intact, no edema. [] Neurologic: Alert and oriented, normal motor function, normal sensory function, no focal deficits noted. [] Psychologic: Affect normal, judgement normal, mood normal. [] EKG: EKG: Normal sinus rhythm, rate 82, flattened T waves lead aVL, otherwise unremarkable EKG, not STEMI [] Radiology/Procedures: Radiology/Procedures: Acute abdominal series reviewed by me. There is no evidence of a consolidating infiltrate, free air or an obstructive bowel gas pattern. No acute findings Heart Score: Risk Factors: Risk Factors: DM, Current or recent (<one month) smoker, HTN, HLP, family history of CAD, obesity. Risk Scores: Score 0 - 3: 2.5% MACE over next 6 weeks - Discharge Home Score 4 - 6: 20.3% MACE over next 6 weeks - Admit for Clinical Observation Score 7 - 10: 72.7% MACE over next 6 weeks - Early Invasive Strategies Course & Med Decision Making: Course & Med Decision Making Pertinent Labs and Imaging studies reviewed. (See chart for details) [] Holly Disclaimer: Holly Disclaimer: This electronic medical record was generated, in whole or in part, using a voice recognition dictation system. 0205 stable, patient feeling somewhat better at this time. Instructions for diarrhea given at this time. Lab work was essentially normal and patient does not have a bladder infection nor she significantly dehydrated. Patient has no reported black, bloody or tarry stools. Supportive care recommended Departure Departure: Impression: Primary Impression: Diarrhea Qualified Codes: R19.7 - Diarrhea, unspecified Additional Impression: Abdominal cramping Disposition: 01 DC HOME SELF CARE/HOMELESS Condition: STABLE Referrals: PCP,HE (PCP) RICO ARZATE MD Patient Instructions: Abdominal Pain (Nonspecific), Diarrhea Additional Instructions: Drink plenty fluids, rest, for severe diarrhea you can take [id number] medications such as Imodium. Return if worsen, fever develops, bloody diarrhea etc. call and see your doctor right away in follow-up OMAR MOYA DO Jul 19, 2020 00:07
[2020-07-19] MEDS ORDERED: ONDANSETRON PF 4 MG/2 ML VIAL. IVP ONE (00:30)
[2020-07-19] MEDS ORDERED: IV NORMAL SALINE 1,000ML 1,000 ML IV SCH (00:30)
[2020-07-19 01:09] LABS: BASO % 0 % (0-3); EOS % 0 % (0-3); HEMATOCRIT 49.3 % (36.0-47.0); HEMOGLOBIN 16.4 g/dL (12.0-15.5); LYMPH # 1.8 x10^3/uL (1.0-4.8); LYMPH % 18 % (24-48); MEAN CORPUSCULAR HEMOGLOBIN 32 pg (25-35); MEAN CORPUSCULAR HGB CONC 33 g/dL (31-37); MEAN CORPUSCULAR VOLUME 96 fL (79-100); MONO # 0.7 x10^3/uL (0.0-1.1); MONO % 7 % (0-9); NEUT # 7.4 x10^3uL (1.8-7.7); NEUT % 74 % (31-73); PLATELET COUNT 178 x10^3/uL (140-400); RED BLOOD COUNT 5.12 x10^6/uL (3.50-5.40); RED CELL DISTRIBUTION WIDTH 14.1 % (11.5-14.5)
[2020-07-19 01:15] LABS: CALCIUM 10.2 mg/dL (8.5-10.1); CREATININE 0.8 mg/dL (0.6-1.0); GFR 75.9; POTASSIUM 3.7 mmol/L (3.5-5.1)
[2020-07-19 01:20] LABS: BACTERIA,URINE 0 /HPF (0-FEW); BILIRUBIN,URINE NEG (NEG); CLARITY,URINE CLEAR; COLOR,URINE COLORLESS; GLUCOSE,URINE NEG (NEG); NITRITE,URINE NEG (NEG); RBC,URINE OCC /HPF (0-2); SQUAMOUS EPITHELIAL CELL,UR FEW /LPF; UROBILINOGEN,URINE 0.2 mg/dL (0.2 mg/dL); WBC,URINE RARE /HPF (0-4)
[2020-07-19 01:21] LABS: ALBUMIN 4.1 g/dL (3.4-5.0); TOTAL BILIRUBIN 0.3 mg/dL (0.2-1.0); TOTAL PROTEIN 8.2 g/dL (6.4-8.2)
--- NOTE | 2020-07-19 02:13 | EKG ---
[address] [address] Test Date: 2020-07-19 Test Time: 01:02:46 Pat Name: AMANUEL RUFF Department: Room: Gender: F Major Assembly Inspector: AMAN : 1970 Requested By: OMAR MOYA Order Number: [id number] Reading MD: Measurements Intervals [place] Rate: 82 P: 64 MI: 128 QRS: 24 QRSD: 82 T: 56 QT: 378 QTc: 445 Interpretive Statements SINUS RHYTHM NORMAL ECG RI6.02 No previous ECG available for comparison
[2020-07-19 02:20] VITALS: BP 113/56
--- NOTE | 2020-07-19 03:14 | RAD ---
EXAM: 2 VIEW ABDOMEN WITH ONE VIEW CHEST. HISTORY: Abdominal pain. COMPARISON: 04/07/2020. FINDINGS: A frontal view of the chest and supine/upright views of the abdomen are obtained. Hyperinflation is consistent with chronic obstructive pulmonary disease. There are no confluent infiltrates. There is no pneumothorax or pleural effusion. The heart is not enlarged. There is no pneumoperitoneum. There are no distended small bowel loops or significant air-fluid levels. There is gas distally. Cholecystectomy clips are noted. IMPRESSION: 1. Chronic obstructive pulmonary disease. No confluent infiltrates. 2. No evidence of obstruction. Electronically signed by: Christine Yost MD (07/19/2020 3:11 AM) [facility]
== END 2020-07-19 02:20 | disposition home or self-care (01) ==
LOC: ER 23:52
DX: R19.7 Diarrhea, unspecified (principal); R10.30 Lower abdominal pain, unspecified; R11.2 Nausea with vomiting, unspecified; I25.10 Atherosclerotic heart disease of native coronary artery without angina pectoris; I25.2 Old myocardial infarction; F17.200 Nicotine dependence, unspecified, uncomplicated; Z88.0 Allergy status to penicillin; Z88.2 Allergy status to sulfonamides; Z88.8 Allergy status to other drugs, medicaments and biological substances
CPT/HCPCS: 36415; 74022; 80053; 81001; 83690; 84484; 85025; 93005; 96361; 96374; 99285; J2405; J7030

== ENCOUNTER 2020-07-21 14:57 | Emergency (ER) | payer SELFPAY ==
[~2020-07-21] VITALS: Ht 165.1 cm; Wt 52.7 kg
--- NOTE | 2020-07-21 15:39 | PHYS DOC ---
Past History Past Medical History: Anxiety, CAD, Depression, Gallstones, SD, Other Additional Past Medical Histor: panic attacks Past Surgical History: Cholecystectomy, Other Additional Past Surgical Histo: bile duct surg Smoking: Less than 1pk/day Alcohol Use: None General Adult EDM: Chief Complaint: MULTIPLE COMPLAINTS HPI: HPI: 49-year-old female returns the emergency department with continued diarrhea and right lower quadrant abdominal pain. The pain is a cramping sensation of mild to moderate intensity. Patient was seen few days ago by my colleague. She had acute abdominal x-rays as well as lab work. It was all unremarkable. She did not have a UTI. She tells me that the right flank and right lower quadrant pain is more significant than it was 3 days ago. She is still having diarrhea every time she eats something solid. No vomiting. She denies fever or chills. Review of Systems: Review of Systems: Constitutional: Denies fever or chills Eyes: Denies change in visual acuity HENT: Denies nasal congestion or sore throat Respiratory: Denies cough or shortness of breath Cardiovascular: Denies chest pain or edema GI: Right lower quadrant abdominal pain, flank pain, diarrhea. : Denies dysuria Musculoskeletal: Denies back pain or joint pain Integument: Denies rash Neurologic: Denies headache, focal weakness or sensory changes Endocrine: Denies polyuria or polydipsia Lymphatic: Denies swollen glands Psychiatric: Denies depression or anxiety Allergies: Allergies: Allergies Coded Allergies Type Severity Reaction Last Updated Verified Penicillins Allergy Intermediate 07/19/20 Yes Sulfa (Sulfonamide Antibiotics) Allergy Intermediate 07/19/20 Yes cyproheptadine Allergy Intermediate 07/19/20 Yes Physical Exam: PE: Constitutional: Well developed, well nourished, no acute distress, non-toxic appearance. [] HENT: Normocephalic, atraumatic, bilateral external ears normal, oropharynx moist, no oral exudates, nose normal. [] Eyes: PERRLA, EOMI, conjunctiva normal, no discharge. [] Neck: Normal range of motion, no tenderness, supple, no stridor. [] Cardiovascular:Heart rate regular rhythm, no murmur [] Lungs & Thorax: Bilateral breath sounds clear to auscultation [] Abdomen: Bowel sounds normal, soft, RLQ tenderness, no masses, no pulsatile masses. [] Skin: Warm, dry, no erythema, no rash. [] Back: No tenderness, right sided CVA tenderness. [] Extremities: No tenderness, no cyanosis, no clubbing, ROM intact, no edema. [] Neurologic: Alert and oriented X 3, normal motor function, normal sensory function, no focal deficits noted. [] Psychologic: Affect normal, judgement normal, mood normal. [] EKG: EKG: [] Radiology/Procedures: Radiology/Procedures: [] Heart Score: Risk Factors: Risk Factors: DM, Current or recent (<one month) smoker, HTN, HLP, family history of CAD, obesity. Risk Scores: Score 0 - 3: 2.5% MACE over next 6 weeks - Discharge Home Score 4 - 6: 20.3% MACE over next 6 weeks - Admit for Clinical Observation Score 7 - 10: 72.7% MACE over next 6 weeks - Early Invasive Strategies Course & Med Decision Making: Course & Med Decision Making Pertinent Labs and Imaging studies reviewed. (See chart for details) The patient's urinalysis is significant for urinary tract infection. The CT of the abdomen pelvis also shows possible ascending infection from the bladder of the ureter. The patient is penicillin and sulfa allergic. I gave her azithromycin by IV in the emergency room. I will discharge her on levofloxacin 750 mg daily for 7 days. She is stable for discharge at this time. [] Holly Disclaimer: Holly Disclaimer: This electronic medical record was generated, in whole or in part, using a voice recognition dictation system. Departure Departure: Impression: Primary Impression: UTI (urinary tract infection) Qualified Codes: N10 - Acute pyelonephritis Referrals: PCP,NO (PCP) Patient Instructions: Pyelonephritis, Adult, [id number] Scripts Levofloxacin (LEVOFLOXACIN) 750 Mg Tablet 1 TAB PO DAILY for UTI, #7 TAB Prov: LINDA AGUILERA DO 07/21/20 LINDA AGUILERA DO Jul 21, 2020 15:39
[2020-07-21] MEDS ORDERED: IOHEXOL 300 MG/ML 75 ML VIAL. IV ONE (16:00)
[2020-07-21 16:26] LABS: BACTERIA,URINE MOD /HPF (0-FEW); BILIRUBIN,URINE NEG (NEG); CLARITY,URINE HAZY; COLOR,URINE STRAW; GLUCOSE,URINE NEG (NEG); NITRITE,URINE NEG (NEG); RBC,URINE OCC /HPF (0-2); UROBILINOGEN,URINE 0.2 mg/dL (0.2 mg/dL); WBC,URINE TNTC /HPF (0-4)
[2020-07-21 16:27] LABS: SQUAMOUS EPITHELIAL CELL,UR FEW /LPF
[2020-07-21] MEDS ORDERED: AZITHROMYCIN 500 MG in IV NORMAL SALINE 250ML 250 ML IV ONE (16:45)
[2020-07-21] MEDS ORDERED: AZITHROMYCIN 500 MG VIAL. IV ONE (16:58)
[2020-07-21] MEDS ORDERED: IV NORMAL SALINE 250ML 250 ML ONE (16:58)
[2020-07-21] MEDS ORDERED: LOPERAMIDE 2 MG CAPSULE PO ONE (17:15)
[2020-07-21] MEDS ORDERED: ONDANSETRON PF 4 MG/2 ML VIAL. IVP ONE (17:15)
--- NOTE | 2020-07-21 17:21 | RAD ---
Exam: CT of abdomen and pelvis with contrast INDICATION: Right lower quadrant abdominal pain TECHNIQUE: Sequential axial images through the abdomen and pelvis obtained following the administration of 75 mL of Isovue-370 IV contrast. Sagittal and coronal reformatted images were reconstructed from the axial data and reviewed. Comparisons: Acute abdominal series 07/19/2020 FINDINGS: Heart size is normal. No pericardial effusion. Strandy opacities at dependent portion lungs likely representing atelectasis. No pleural effusion. Liver, spleen, pancreas and adrenals are unremarkable. Gallbladder surgically absent. Kidneys demonstrate symmetric enhancement. No perinephric inflammation or hydronephrosis. There is ureteral wall enhancement seen at the right renal pelvis. And extending down the right ureter. No renal or ureteral calculi. Bladder is distended and appears thin-walled. Uterus is not enlarged. No abnormal adnexal mass. Large and small bowel are unremarkable. Appendix is not identified. No free intra-abdominal air or fluid. No obstruction. Abdominal aorta has a normal course and caliber. Abdominal vasculature is patent. No enlarged intra-abdominal lymph nodes are identified. No suspicious osseous lesions or acute fractures. IMPRESSION: Right-sided ureteral wall enhancement. Correlate with urinalysis for sending infection. Exposure: One or more of the following in the visualized dose reduction techniques were utilized for this examination: 1. Automated exposure control 2. Adjustment of the MA and/or KV according to patient size 3. Use of iterative of reconstructive technique Electronically signed by: Diana Hebert MD (07/21/2020 5:18 PM) [id number]
[2020-07-21] MEDS ORDERED: LEVO750T5 PO (17:33)
[2020-07-21 17:41] VITALS: BP 107/59
== END 2020-07-21 18:04 | disposition home or self-care (01) ==
LOC: ER 14:57
DX: N10 Acute pyelonephritis (principal); R19.7 Diarrhea, unspecified; F41.9 Anxiety disorder, unspecified; I25.10 Atherosclerotic heart disease of native coronary artery without angina pectoris; I25.2 Old myocardial infarction; F17.210 Nicotine dependence, cigarettes, uncomplicated; Z90.49 Acquired absence of other specified parts of digestive tract; Z88.0 Allergy status to penicillin; Z88.2 Allergy status to sulfonamides; Z88.8 Allergy status to other drugs, medicaments and biological substances
CPT/HCPCS: 74177; 81001; 87086; 96365; 96375; 99285; J0456; J2405; J7050; Q9967

== ENCOUNTER 2020-07-26 12:44 | Emergency (ER) | payer SELFPAY ==
[~2020-07-26] VITALS: Ht 165.1 cm; Wt 52.7 kg
[~2020-07-26 12:44] MED LIST changes: +LEVO750T5 PO
--- NOTE | 2020-07-26 14:10 | PHYS DOC ---
Past History Past Medical History: Anxiety, CAD, Depression, High Cholesterol, Hypertension, SD Additional Past Medical Histor: panic attacks (TREMAINE OLVERA APRN) Past Surgical History: Cholecystectomy, Other Additional Past Surgical Histo: BILE DUCT, CARDIAC STENT (TREMAINE OLVERA APRN) Smoking: Less than 1pk/day Alcohol Use: None (TREMAINE OLVERA APRN) General Adult EDM: Chief Complaint: SOA HPI: HPI: Patient is a 49-year-old female who presents to the emergency room with complaints earns of feeling short of breath today. Patient reports that she has been taking Levaquin for a urinary tract infection. Patient states she has had some diarrhea but denies any diarrhea today. She denies any chest pain, fever, sore throat, stridor, throat swelling, rash, hives, extremity swelling, nasal congestion, runny nose, vision changes, palpitations, wheezing, back pain, abdom inal pain, nausea, or vomiting. Patient states she has felt fatigued, had a mild headache, and myalgias for about the last week. States that she is a smoker and she has a chronic cough, she denies any change in her cough with the onset of shortness of breath. She denies any known exposure to anyone with COVID-19. Patient states that her son, who she has had recent contact with, was put on quarantine after a coworker tested positive for the infection. (TREMAINE OLVERA APRN) Review of Systems: Review of Systems: Complete ROS is negative unless otherwise noted in HPI. (TREMAINE OLVERA APRN) Allergies: Allergies: Allergies Coded Allergies Type Severity Reaction Last Updated Verified Penicillins Allergy Intermediate 07/19/20 Yes Sulfa (Sulfonamide Antibiotics) Allergy Intermediate 07/19/20 Yes cyproheptadine Allergy Intermediate 07/19/20 Yes (TREMAINE OLVERA APRN) Physical Exam: PE: See Above Constitutional: Well developed, well nourished, no acute distress, non-toxic appearance, thin. [] HENT: Normocephalic, atraumatic, bilateral external ears normal, nose normal. [] Eyes: PERRLA, EOMI, conjunctiva normal, no discharge. [] Neck: Normal range of motion, no stridor. [] Cardiovascular:Heart rate regular rhythm Lungs & Thorax: Respirations even and unlabored, no retractions, no respiratory distress, lungs CTA Skin: Warm, dry, no erythema, no rash. [] Extremities: No cyanosis, ROM intact, no edema. [] Neurologic: Alert and oriented X 3, no focal deficits noted. [] Psychologic: Affect normal, judgement normal, mood normal. [] (TREMAINE OLVERA APRN) EKG: EKG: [] (TREMAINE OLVERA APRN) Radiology/Procedures: Radiology/Procedures: PROCEDURE: CHEST AP ONLY CHEST AP ONLY 07/26/2020 2:28 PM INDICATION: Shortness of air, patient under investigation COMPARISON: 04/19/2020 TECHNIQUE: Portable frontal view of the chest is provided. FINDINGS: The cardiomediastinal silhouette is within normal limits. Lungs are clear. There are no significant pleural effusions. There is no pulmonary vascular congestion. No pneumothorax. No suspicious osseous abnormality. IMPRESSION: There is no acute cardiopulmonary process.[] (TREMAINE OLVERA APRN) Heart Score: Risk Factors: Risk Factors: DM, Current or recent (<one month) smoker, HTN, HLP, family history of CAD, obesity. Risk Scores: Score 0 - 3: 2.5% MACE over next 6 weeks - Discharge Home Score 4 - 6: 20.3% MACE over next 6 weeks - Admit for Clinical Observation Score 7 - 10: 72.7% MACE over next 6 weeks - Early Invasive Strategies (TREMAINE OLVERA APRN) Course & Med Decision Making: Course & Med Decision Making Pertinent Labs and Imaging studies reviewed. (See chart for details) 49-year-old female presents emergency room with complaints of feeling short of breath that began today. She reported concerned that it was possibly due to her Levaquin use. I advised the patient there is no signs of an allergic reaction to the medication and encouraged her to continue taking it as prescribed. The patient also reported recent contact with her son who had been exposed to someone with COVID-19. She reported complaints of a headache, fatigue, myalgias, and diarrhea that began a week ago. Advised the patient the symptoms and the shortness of breath could be related to COVID-19. COVID-19 swab is pe nding. The patient's O2 saturation remained 97 to 99% throughout her ER visit stay. Her chest x-ray was negative for any acute findings or pneumonia. I will provide the patient with quarantine instructions encouraged her to return to the emergency room if her symptoms worsen. Patient verbalized an understanding of home care, medications, follow-up, and return to ED instructions and was in agreement with the plan of care. [] (TREMAINE OLVERA APRN) Course & Med Decision Making Discussed case with PARTS ORDER AND STOCK CLERK. Agree to note and plan as stated. Patient ambulatory and in no distress, I agree she is safe for continued outpatient care/quarantining at home (ANAY MCMANUS DO) Dragon Disclaimer: Dragon Disclaimer: This electronic medical record was generated, in whole or in part, using a voice recognition dictation system. (TREMAINE OLVERA APRN) Departure Departure: Impression: Primary Impression: Dyspnea Qualified Codes: R06.00 - Dyspnea, unspecified Additional Impression: Person under investigation for COVID-19 Disposition: 01 DC HOME SELF CARE/HOMELESS Condition: STABLE Referrals: PCP,HE (PCP) Patient Instructions: Shortness of Breath, [id number]-[id number] Additional Instructions: Continue taking the Levaquin as prescribed. Your COVID-19 test will not be back for 2 days. Follow the following quarantine instructions. Return to the ER if your symptoms worsen or fever develops. You have been tested for or diagnosed with COVID-19. It is an infection caused by a new type of coronavirus. COVID-19 will cause cold-like or mild flu symptoms in most. It can cause more severe symptoms like problems breathing in some. There is no treatment for COVID-19. The body will clear the infection over time. Self-care will help to ease discomfort. Steps to Take: Self-Care Rest as needed. Healthy habits may help you feel better. Steps include: Choose healthy foods including fruits and vegetables. Drink water throughout the day. Get plenty of sleep each night. If you smoke, try to quit. It may ease breathing. Avoid alcohol. Keep Others Healthy The virus can spread to others. Droplets are released every time you sneeze or cough. The droplets can get into the mouth, nose, or eyes of people near you and lead to infection. To lower the chances of spreading COVID-19 to others: Stay at home until your doctor has said it is safe to leave. If you tested posi tive this will mean staying isolated until both of the following are true: At least 7 days have passed since the start of illness. You are free of fever for at least 72 hours without the use of medicine. During this time: - Avoid public areas, events, or transportation. Do not return to work or school until your doctor has said it is safe to do so. - Call ahead if you need to go to a medical center. Let them know you may have COVID-19. It will help them guide you where to go. They may also ask you to wear a facemask when you come to the office. - If you call for emergency medical services, let them know you may have COVID- 19. While at home: - Try to avoid close contact with others. Stay about 6 feet away. - If possible, spend most of your time in a separate room from others. - Use a face mask if you will be in close contact with others such as sharing a room or vehicle. - Have someone wipe down common surfaces in the home. Use household supervisor riprap placing every day on areas like doorknobs, counters, or sinks. - Cough or sneeze into a tissue. Throw the tissue away right after use. If a tissue is not available, cough or sneeze into your elbow. - Wash your hands often. Wash them after sneezing or coughing. Use soap and water and wash for at least 20 seconds. Alcohol based hand cone cleaner can be used if soap and water is not available. - Do not prepare food for others. Avoid sharing personal items like forks, spoons, or toothbrushes. - Avoid close contact with pets while you are sick. There is no evidence of the virus passing to pets. This is a safety step until more is known about this virus. Isolation can be frustrating. Social interaction can help. Keep in touch with friends and family through phone and tech options. You can still interact with others in your home, just keep a safe distance of about 6 feet. Follow-up: Your doctors office will check in with you to see if there are any changes in your health. You may be asked to keep track of symptoms to share with them. They will also let you know when you are clear to be in public again. Problems to Look Out For: Contact your doctor if your recovery is not going as you expect. Get emergency care if you have problems such as: - Trouble breathing - Nonstop chest pain or pressure - Changes in awareness, confusion, or problems waking - Lips or face have bluish color - Worsening of symptoms If you think you have an emergency, call for emergency medical services right away. As taken from [facility] TREMAINE OLVERA APRN Jul 26, 2020 14:10 ANAY MCMANUS DO Jul 28, 2020 09:40
--- NOTE | 2020-07-26 14:42 | RAD ---
CHEST AP ONLY 07/26/2020 2:28 PM INDICATION: Shortness of air, patient under investigation COMPARISON: 04/19/2020 TECHNIQUE: Portable frontal view of the chest is provided. FINDINGS: The cardiomediastinal silhouette is within normal limits. Lungs are clear. There are no significant pleural effusions. There is no pulmonary vascular congestion. No pneumothorax. No suspicious osseous abnormality. IMPRESSION: There is no acute cardiopulmonary process. Electronically signed by: Becky Coy MD (07/26/2020 2:39 PM) [id number]
[2020-07-26 15:32] VITALS: BP 125/67
--- NOTE | 2020-07-30 12:50 | NUR ---
IP: notified patient of COVID result.
== END 2020-07-26 15:28 | disposition home or self-care (01) ==
LOC: ER 12:44
DX: R06.00 Dyspnea, unspecified (principal); Z20.828 Contact with and (suspected) exposure to other viral communicable diseases; R06.02 Shortness of breath; R19.7 Diarrhea, unspecified; R51.9 Headache, unspecified; F41.9 Anxiety disorder, unspecified; I11.9 Hypertensive heart disease without heart failure; I25.2 Old myocardial infarction; F32.9 Major depressive disorder, single episode, unspecified; E78.00 Pure hypercholesterolemia, unspecified; Z90.49 Acquired absence of other specified parts of digestive tract; Z98.890 Other specified postprocedural states; Z87.891 Personal history of nicotine dependence; Z88.0 Allergy status to penicillin; Z88.2 Allergy status to sulfonamides; Z88.8 Allergy status to other drugs, medicaments and biological substances
CPT/HCPCS: 71045; 99284; C9803; U0003

== ENCOUNTER 2020-08-01 12:12 | Inpatient (IN) | payer SELFPAY ==
[~2020-08-01] VITALS: Ht 167.6 cm; Wt 52.1 kg
--- NOTE | 2020-08-01 12:40 | PHYS DOC ---
Past History Past Medical History: Anxiety, CAD, Depression, High Cholesterol, Hypertension Additional Past Medical Histor: panic attacks Past Surgical History: Cholecystectomy, Other Additional Past Surgical Histo: BILE DUCT, CARDIAC STENT Smoking: Less than 1pk/day Alcohol Use: None General Adult EDM: Chief Complaint: CHEST WALL PAIN HPI: HPI: 49-year-old female past medical history significant for CAD with 1 stent (2017?), hypertension, hyperlipidemia and depression, presents to the ED with complaints of left-sided sharp chest pain that moves to her lower sternum with associated nausea and weakness. Couldn't find her nitro. Is on Macrobid for a uti and c/o nausea, vomiting and diarrhea x3days, prior to her chest pain, that she believes is related to her Macrobid. No family history of coagulopathy, DVT or PE, connective tissue disorder or aortic disease. Tested negative for Covid on Thursday. When comparing her pain to prior CAD with LAD stent, patient states her current pain is " not as bad." Follows with cardiology, Dr. Sarabia at [facility]. Reports cholecystectomy 3 months ago and had significant weight loss from this but no night sweats or anorexia. Has been suffering from leg pains and had recent ABIs, told she had vascular disease. Review of Systems: Review of Systems: Constitutional: Denies fever or chills Eyes: Denies change in visual acuity HENT: Denies nasal congestion or sore throat Respiratory: Denies cough or shortness of breath Cardiovascular: Denies syncope or edema GI: Denies abdominal pain,vomiting, bloody stools or diarrhea : Denies dysuria por hematuria Musculoskeletal: Denies back pain or joint pain Integument: Denies rash Neurologic: Denies headache, focal weakness or sensory changes Endocrine: Denies polyuria or polydipsia Lymphatic: Denies swollen glands Psychiatric: Denies depression or anxiety Allergies: Allergies: Allergies Coded Allergies Type Severity Reaction Last Updated Verified Penicillins Allergy Intermediate 07/19/20 Yes Sulfa (Sulfonamide Antibiotics) Allergy Intermediate 07/19/20 Yes cyproheptadine Allergy Intermediate 07/19/20 Yes Physical Exam: PE: Constitutional: Well developed, well nourished, no acute distress, non-toxic appearance. HENT: Normocephalic, atraumatic, Eyes: EOMI, conjunctiva normal, no discharge. Neck: Normal range of motion, supple, Cardiovascular: S1/2 present, regular rhythm Lungs & Thorax: Speaking in full sentences, bilateral equal chest rise, no tachypnea or increased work of breathing Abdomen: soft, no tenderness, Skin: Warm, dry, no erythema, no rash. [] Back: No tenderness, no CVA tenderness. [] Extremities: No tenderness, no cyanosis, no edema Neurologic: Alert and oriented X 3, normal motor function, normal sensory function, no focal deficits noted. [] Psychologic: Affect normal, judgement normal, mood normal. [] Current Patient Data: Vital Signs: Vital Signs Date Time Temp Pulse Resp B/P (MAP) Pulse Ox O2 Delivery O2 Flow Rate FiO2 08/01/20 12:18 97.5 99 18 133/89 (104) 100 Room Air EKG: EKG: Sinus rhythm at 92 bpm, no axis deviation, normal intervals, T wave inversion aVL, incomplete right bundle branch block, no ST elevations or ST depressions Radiology/Procedures: Radiology/Procedures: IMAGING REPORT Signed PATIENT: AMANUEL RUFF IACCOUNT: [id number] : 1970 LOCATION: ER AGE: 49 SEX: F EXAM STATUS: REG ER ORD. PHYSICIAN: JIMI PERLA DO REASON: cp PROCEDURE: PORTABLE CHEST 1V AP chest. HISTORY: Chest pain AP view was taken of the chest. There is hyperexpansion of the lungs. Heart is normal in size. There is no acute infiltrate. There is no effusion. Has been little change compared to the recent study. IMPRESSION: 1. No acute infiltrates. Electronically signed by: Eyal Perez MD (08/01/2020 12:37 PM) [id number] DICTATED AND SIGNED BY: EYAL PEREZ MD DATE: 08/01/20 1237 CC: RICO ARZATE MD; JIMI PERLA DO ~ Heart Score: HEART Score for Chest Pain: HEART Score for Chest Pain Response (Comments) Value History Slighlty/Non-Suspicious 0 ECG Nonspecific Repolarizatio 1 Age >45 - < 65 1 Risk Factors >3 Risk Factors or Hx CAD 2 Troponin < Normal Limit 0 Total 4 Risk Factors: Risk Factors: DM, Current or recent (<one month) smoker, HTN, HLP, family history of CAD, obesity. Risk Scores: Score 0 - 3: 2.5% MACE over next 6 weeks - Discharge Home Score 4 - 6: 20.3% MACE over next 6 weeks - Admit for Clinical Observation Score 7 - 10: 72.7% MACE over next 6 weeks - Early Invasive Strategies Course & Med Decision Making: Course & Med Decision Making Pertinent Labs and Imaging studies reviewed. (See chart for details) Concern for chest pain in moderate risk pt, heart score 4. EKG with T wave inversion aVL but no ST elevations. Chest x-ray unremarkable with a very narrow mediastinum. Will admit for serial troponins and further medical management. P atient stable at time of admission and agrees with this plan. I have spoken with the patient and/or caregivers. I have explained the patient's condition, diagnosis and treatment plan based on the information available to me at this time. I have answered the patient's and/or caregivers questions and answered any concerns. The patient and/or caregivers have as good an understanding of the patient's diagnosis, condition and treatment plan as can be expected at this point. The patient has been stabilized within the capability of the emergency department. The patient will be transported for further care and management or will be moved to an observation or inpatient service. I have communicated with the staff or medical practitioner taking over this patient's care. Holly Disclaimer: Holly Disclaimer: This electronic medical record was generated, in whole or in part, using a voice recognition dictation system. Departure Departure: Impression: Primary Impression: Chest pain Disposition: ADMITTED INPT THIS HOSP Condition: STABLE Referrals: RICO ARZATE MD (PCP) JIMI PERLA DO Aug 01, 2020 12:40
[2020-08-01] MEDS ORDERED: NITROGLYCERIN SUBLINGUAL 0.4 MG BOTTLE OF 25. SL PRN (12:45)
[2020-08-01] MEDS ORDERED: ONDANSETRON PF 4 MG/2 ML VIAL. IVP ONE (12:45)
[2020-08-01 12:57] LABS: BASO # 0.1 x10^3/uL (0.0-0.2); BASO % 1 % (0-3); EOS % 0 % (0-3); LYMPH # 1.7 x10^3/uL (1.0-4.8); LYMPH % 16 % (24-48); MEAN CORPUSCULAR HEMOGLOBIN 32 pg (25-35); MEAN CORPUSCULAR HGB CONC 33 g/dL (31-37); MEAN CORPUSCULAR VOLUME 95 fL (79-100); MONO # 0.5 x10^3/uL (0.0-1.1); MONO % 5 % (0-9); NEUT # 8.6 x10^3uL (1.8-7.7); NEUT % 79 % (31-73); PLATELET COUNT 166 x10^3/uL (140-400); RED BLOOD COUNT 5.05 x10^6/uL (3.50-5.40); RED CELL DISTRIBUTION WIDTH 14.2 % (11.5-14.5)
[2020-08-01 13:11] LABS: CALCIUM 9.7 mg/dL (8.5-10.1); CREATININE 0.9 mg/dL (0.6-1.0); GFR 66.3; POTASSIUM 3.8 mmol/L (3.5-5.1)
[2020-08-01 13:26] LABS: ALBUMIN 4.2 g/dL (3.4-5.0); ALBUMIN/GLOBULIN RATIO 1.3 (1.0-1.7); TOTAL BILIRUBIN 0.6 mg/dL (0.2-1.0); TOTAL PROTEIN 7.4 g/dL (6.4-8.2)
[2020-08-01] MEDS ORDERED: ONDANSETRON PF 4 MG/2 ML VIAL. IVP PRN (14:30)
[2020-08-01] MEDS ORDERED: MORPHINE SULFATE 2 MG/ML DISP.SYRIN. IVP PRN (14:30)
--- NOTE | 2020-08-01 15:15 | EKG ---
[address] [address] Test Date: 2020-08-01 Test Time: 12:17:50 Pat Name: AMANUEL RUFF Department: Room: Gender: F Air Bag Builder: SOB[place] : 1970 Requested By: JIMI PERLA Order Number: [id number] Reading MD: Measurements Intervals [place] Rate: 92 P: 74 DC: 122 QRS: 18 QRSD: 94 T: 66 QT: 352 QTc: 440 Interpretive Statements SINUS RHYTHM INCOMPLETE RIGHT BUNDLE BRANCH BLOCK OTHERWISE NORMAL ECG RI6.02 No previous ECG available for comparison
[2020-08-01] MEDS ORDERED: DULO30CA2 PO (15:38)
[2020-08-01] MEDS ORDERED: NICOTINE 21MG PATCH. TD PRN (16:00)
[2020-08-01 16:05] VITALS: BP 118/66
[2020-08-01] MEDS: ONDANSETRON PF 4 MG/2 ML VIAL. IVP PRN (17:53)
[2020-08-01] MEDS: clonazePAM 0.5 MG TABLET PO PRN (17:53)
[2020-08-01 19:57] VITALS: BP 86/50
[2020-08-01] MEDS: ATORVASTATIN CALCIUM 20 MG TABLET PO SCH (20:10)
[2020-08-01] MEDS: METOPROLOL SUCC 24HR ER 25 MG TAB.ER.24H. PO SCH (20:11)
[2020-08-01 21:06] VITALS: BP 100/52
[2020-08-01 22:16] VITALS: BP 93/54
[2020-08-02 00:04] VITALS: BP 117/80
[2020-08-02] MEDS: ONDANSETRON PF 4 MG/2 ML VIAL. IVP PRN ×3 (00:09→19:37)
[2020-08-02] MEDS: ACETAMINOPHEN 325 MG TABLET PO PRN ×2 (00:20→19:39)
[2020-08-02 04:19] VITALS: BP 104/65
--- NOTE | 2020-08-02 08:25 | PDOC2 ---
KIM HUYNH CRISIS INTERVENTION COUNSELOR 08/02/20 0825: CARDIAC CONSULT DATE OF CONSULT DOS: DATE: 08/02/20 TIME: 08:22 REASON FOR CONSULT Reason for Consult Chest pain REFERRING PHYSICIAN Referring Physician Dr. Sommer SOURCE Source: Chart review, Patient HPI History of Present Illness This is a 49 yo female who presented secondary chest pain. Patient reports she woke up yesterday morning with pain in her left chest/side. Reports of stabbing pain. Seems to be worse with certain movement. No associated SOA, palpitations, or nausea/vomiting. Does reports mild dizziness recently, but contributes this to UTI. She does have a history of CAD s/p PCI/stent placement at [facility] in 2017. Pain at that time was heaviness/pressure in her central chest, which she reports to be very different from what she is experiencing currently. PAST MEDICAL HISTORY Cardiovascular: CAD, HTN, hyperipidemia Psych: Anxiety, Depression PAST SURGICAL HISTORY Past Surgical History: Cholecystectomy FAMILY HISTORY Family History: Other (no pertinent hx) SOCIAL HISTORY Smoke: <1 pack per day ALCOHOL: none Drugs: None Lives: with Family CURRENT MEDICATIONS Current Medications Current Medications Ondansetron HCl (Zofran) 4 mg 1X ONCE IVP Last administered on 08/01/20at 12:49; Start 08/01/20 at 12:45; Stop 08/01/20 at 12:47; Status DC Nitroglycerin (Nitrostat) 0.4 mg PRN Q5MIN PRN SL CHEST PAIN Last administered on 08/01/20at 12:49; Start 08/01/20 at 12:45 Ondansetron HCl (Zofran) 4 mg PRN Q4HRS PRN IVP NAUSEA/VOMITING; Start 08/01/20 at 14:30; Stop 08/01/20 at 15:59; Status DC Morphine Sulfate (Morphine 2mg Syringe) 2 mg PRN Q2HR PRN IVP PAIN; Start 08/01/20 at 14:30; Stop 08/02/20 at 14:29 Ondansetron HCl (Zofran) 4 mg PRN Q6HRS PRN IVP NAUSEA/VOMITING Last administered on 08/02/20at 00:09; Start 08/01/20 at 16:00 Aspirin (Aspirin Chewable) 81 mg DAILY PO ; Start 08/02/20 at 09:00 Clonazepam (KlonoPIN) 0.5 mg PRN TID PRN PO ANXIETY Last administered on at 17:53; Start 08/01/20 at 16:00 Duloxetine HCl (Cymbalta) 30 mg DAILY PO ; Start 08/02/20 at 09:00 Metoprolol Succinate (Toprol Xl) 12.5 mg QHS PO ; Start 08/01/20 at 21:00 Nicotine (Nicoderm Cq 21mg Patch) 1 patch PRN DAILY PRN TD SMOKING CESSATION; Start 08/01/20 at 16:00 Pantoprazole Sodium (Protonix) 40 mg DAILY PO ; Start 08/02/20 at 09:00 Atorvastatin Calcium (Lipitor) 80 mg QHS PO Last administered on 08/01/20at 20:10; Start 08/01/20 at 21:00 Acetaminophen (Tylenol) 650 mg PRN Q6HRS PRN PO MILD PAIN / TEMP > 100.3'F Last administered on 08/02/20at 00:20; Start 08/02/20 at 00:15 Active Scripts Active Reported Cymbalta (Duloxetine Hcl) 30 Mg Capsule.dr 1 Cap PO DAILY NICODERM CQ 21mg (Nicotine) 1 Each Patch.td24 1 Patch TD DAILY PRN NOT GIVEN IN THE HOSPITAL NEXT DOSE DUE: DATE: TODAY TIME: IF AND WHEN NEEDED Clonazepam 0.5 Mg Tablet 1 Tab PO TID PRN LAST DOSE GIVEN: DATE: TODAY TIME: AM NEXT DOSE DUE: DATE: TODAY TIME: AFTERNOON IF NEEDED Metoprolol Succinate ( Xl ) (Metoprolol Succinate) 25 Mg Tab.er.24h 12.5 Mg PO QHS NEXT DOSE DUE: DATE: TONITE TIME: AT BEDTIME Atorvastatin Calcium 80 Mg Tablet 80 Mg PO QHS NEXT DOSE DUE: DATE: TONITE TIME: AT BEDTIME Aspirin 81 Mg Tab.chew 81 Mg PO DAILY LAST DOSE GIVEN: DATE: TODAY TIME: AM NEXT DOSE DUE: DATE: TOMORROW TIME: AM Pantoprazole Sodium 40 Mg Tablet.dr 40 Mg PO DAILY LAST DOSE GIVEN: DATE: TODAY TIME: AM NEXT DOSE DUE: DATE: TOMORROW TIME: AM ALLERGIES Allergies: Coded Allergies: Penicillins (Verified Allergy, Intermediate, 07/19/20) Sulfa (Sulfonamide Antibiotics) (Verified Allergy, Intermediate, 07/19/20) cyproheptadine (Verified Allergy, Intermediate, 07/19/20) caused her HR and her BP to go up ROS Review of Systems 14 point ROS conducted with pertinent positives noted above in hPI PHYSICAL EXAM General: Alert, Oriented X3, Cooperative, No acute distress HEENT: Atraumatic, Mucous membr. moist/pink Lungs: Clear to auscultation, Other (left chest tenderness upon palpitation) Heart: Regular rate Abdomen: Soft Extremities: No edema, Normal pulses Skin: No breakdown Neuro: Normal speech, Sensation intact Psych/Mental Status: Mental status NL, Other (tearful, anxious ) MUSCULOSKELETAL: Osteoarthritic changes both hands VITALS Vital Signs Vital Signs Date Time Temp Pulse Resp B/P (MAP) Pulse Ox O2 Delivery O2 Flow Rate FiO2 08/02/20 04:19 97.7 56 20 104/65 (78) 93 Room Air LABS LABS Laboratory Tests Test 08/01/20 12:34 08/01/20 15:10 08/01/20 18:00 White Blood Count 11.0 x10^3/uL (4.0-11.0) Red Blood Count 5.05 x10^6/uL (3.50-5.40) Hemoglobin 16.0 g/dL (12.0-15.5) Hematocrit 48.0 % (36.0-47.0) Mean Corpuscular Volume 95 fL (79-100) Mean Corpuscular Hemoglobin 32 pg (25-35) Mean Corpuscular Hemoglobin Concent 33 g/dL (31-37) Red Cell Distribution Width 14.2 % (11.5-14.5) Platelet Count 166 x10^3/uL (140-400) Neutrophils (%) (Auto) 79 % (31-73) Lymphocytes (%) (Auto) 16 % (24-48) Monocytes (%) (Auto) 5 % (0-9) Eosinophils (%) (Auto) 0 % (0-3) Basophils (%) (Auto) 1 % (0-3) Neutrophils # (Auto) 8.6 x10^3uL (1.8-7.7) Lymphocytes # (Auto) 1.7 x10^3/uL (1.0-4.8) Monocytes # (Auto) 0.5 x10^3/uL (0.0-1.1) Eosinophils # (Auto) 0.0 x10^3/uL (0.0-0.7) Basophils # (Auto) 0.1 x10^3/uL (0.0-0.2) Sodium Level 140 mmol/L (136-145) Potassium Level 3.8 mmol/L (3.5-5.1) Chloride Level 101 mmol/L (98-107) Carbon Dioxide Level 27 mmol/L (21-32) Anion Gap 12 (6-14) Blood Urea Nitrogen 10 mg/dL (7-20) Creatinine 0.9 mg/dL (0.6-1.0) Estimated GFR (Cockcroft-Gault) 66.3 BUN/Creatinine Ratio 11 (6-20) Glucose Level 111 mg/dL (70-99) Calcium Level 9.7 mg/dL (8.5-10.1) Total Bilirubin 0.6 mg/dL (0.2-1.0) Aspartate Amino Transf (AST/SGOT) 28 U/L (15-37) Alanine Aminotransferase (ALT/SGPT) 45 U/L (14-59) Alkaline Phosphatase 160 U/L (46-116) Troponin I Quantitative < 0.017 ng/mL (0-0.055) < 0.017 ng/mL (0-0.055) < 0.017 ng/mL (0-0.055) WR-Dca-T-Type Natriuretic Peptide 94 pg/mL (0-124) Total Protein 7.4 g/dL (6.4-8.2) Albumin 4.2 g/dL (3.4-5.0) Albumin/Globulin Ratio 1.3 (1.0-1.7) ASSESSMENT/PLAN Assessment/Plan 1. Chest pain; AMI ruled out. Most probably MSK in origin. 2. CAD s/p PCI/stent in 2017. Follows with [facility] cardiology, Dr. Figueroa 3. Hypertension; low end 4. Hyperlipidemia; statin 5. Anxiety, depression 6. Tobaccoism; discussed/encouraged cessation Recommendation Continue secondary prevention measures including ASA, statin, low-dose BB therapy Consider outpatient ischemic evaluation Follow up with primary personal clothing laundry aide upon discharge TAYLER WANG MD 08/02/20 1636: CARDIAC CONSULT ASSESSMENT/PLAN Assessment/Plan Patient seen and examined I agree with our nurse practitioners assessment and plan as above. Chest pain. Negative troponins x3. Improved. History of coronary disease with previous stenting in 2017. Chest pain resolved. No elevation in troponin. Continue medical treatment. Followed up at [facility]. Hyperlipidemia. Continuing statins. Hypertension. Continue present medications and monitoring of blood pressure. Anxiety and depression. Patient appears very anxious this afternoon. We did discuss her normal blood testing and attempted to provide reassurance. Thank you for allowing us to participate in the care of your patient. KIM HUYNH APRN Aug 02, 2020 08:25 TAYLER WANG MD Aug 02, 2020 16:36
[2020-08-02] MEDS: DULoxetine HCL 30 MG CAPSULE.DR PO SCH (09:29)
[2020-08-02] MEDS: ASPIRIN CHEWABLE 81 MG TABLET. PO SCH (09:29)
[2020-08-02] MEDS: clonazePAM 0.5 MG TABLET PO PRN ×2 (09:29→19:39)
[2020-08-02] MEDS: PANTOPRAZOLE 40 MG TABLET. PO SCH (09:29)
[2020-08-02] MEDS ORDERED: ONDANSETRON ODT 4 MG TAB.RAPDIS PO PRN (09:45)
[2020-08-02] MEDS: IV NORMAL SALINE 1,000ML 1,000 ML IV SCH ×2 (09:51→20:37)
--- NOTE | 2020-08-02 09:59 | HP ---
ADMIT DATE: 08/01/2020 HISTORY OF PRESENT ILLNESS: This 49-year-old female came in with a sharp pain in her chest. The patient noted that she has had a history of coronary artery disease and the like and the patient complains that she has been having some left-sided chest wall pain, moving toward her sternum with associated nausea and weakness. The patient also had some apparently on some Macrobid for urinary tract infection, said the pain was fairly severe, 8-9/10. She is followed by Cardiology. The patient was admitted to the hospital initially for chest pain, although on workup the patient is really complaining more of epigastric abdominal pain with nausea, vomiting, weight loss, failure to keep food down. The patient has quite a bit of pain, discomfort and anxiety with her situation at hand. MEDICATIONS: Home medications normally include that of Nicoderm patch, Lipitor 80, metoprolol 12.5, aspirin, clonazepam, duloxetine 30 mg, Protonix 40. ALLERGIES: TO PENICILLIN, SULFA AND CRYPTOHEPTADINE AND SULFA ANTIBIOTICS. PAST MEDICAL HISTORY: She has had a heart attack, coronary artery disease with stent, hypercholesterolemia, hypertension, cholecystectomy, panic disorders, depression, anxiety. INFLUENZA VACCINATION: Up-to-date. SOCIAL HISTORY: The patient has about 30-40 pack year history of smoking, trying to quit smoking. Occasional alcohol use, denies drug use. REVIEW OF SYSTEMS: The patient is very tearful, but denies any headaches, visual changes, blurred vision or double vision. Does have sharp chest pain over the left chest wall. The patient otherwise does have some nausea and vomiting and epigastric pain and right upper quadrant pain, had a cholecystectomy approximately 3 months ago. Still very tender there. She has had a change in appetite. She has been losing weight, approximately 5-10 pounds. The patient denies any problem with her bowels. Denies any melena or hematemesis. Neurologically, the patient is alert and oriented. PHYSICAL EXAMINATION: GENERAL: This is a very pleasant white female, very frail appearing, looking a little bit older than stated age, but she is markedly frail appearing. VITAL SIGNS: Blood pressure 86/50, respiratory rate 22, pulse 50-60 and afebrile. The patient is alert and oriented, answers questions appropriately. HEENT: Otherwise head was atraumatic, normocephalic. Eyes: PERRLA without jaundice. The mouth and throat were normal. NECK: Supple. LUNGS: Diminished throughout, does not have much muscle mass on her skeletal system. She is a very thin and frail patient. CARDIOVASCULAR: Regular sinus rhythm, S1, S2, without murmur, rubs, thrill or extra heart sound. ABDOMEN: Soft, scaphoid, diffusely tender, especially in the right upper and right mid quadrant areas. EXTREMITIES: No clubbing, cyanosis, nor edema. NEUROLOGIC: The patient was alert and oriented x 3 and very anxious and tearful at the same time. LABORATORY DATA: Sodium and potassium 140 and 3.8, BUN and creatinine of 10 and 0.9. Albumin is good at 4.2. Alkaline phosphatase slightly elevated. Cardiac enzymes were negative. Hemoglobin 16, 48. Chest x-ray negative for acute infiltrates. ASSESSMENT AND PLAN: The patient will be admitted for further evaluation, rule out VA, previous chest pain. Previous history of coronary artery disease, atherosclerotic disease, epigastric pain, rule out pancreatitis, ulcers and the like; also significant weight loss, anorexia. We did give her anxiolytics as well as PPIs and will make further evaluation on her as indicated as we can get other testing such as a CAT scan of her abdomen and pelvis and make further evaluation on her as indicated. Cardiology had been consulted. RICO ARZATE MD DR: ORACIO/elmira JOB#: [id number] / [id number]
[2020-08-02 10:05] VITALS: BP 123/75
--- NOTE | 2020-08-02 14:23 | RAD ---
EXAM: CT Abdomen and Pelvis without IV contrast INDICATION: Reason: abd pain / Spl. Instructions: / History: TECHNIQUE: Multi-detector row CT images were acquired from the lung bases through the abdomen and pelvis without the use of IV contrast. Sagittal and coronal images were acquired from the transaxial data. All CT scans performed at this facility utilize dose optimization techniques as appropriate to the exam, including the following: Automated exposure control and adjustment of the mA and/or KV according to patient size (this includes techniques or standardized protocols for targeted exams where dose is indication/reason for exam). ORAL CONTRAST: None COMPARISON: 07/21/[address] with IV contrast FINDINGS: The absence of IV contrast limits evaluation of soft tissue pathology. LOWER CHEST: Unremarkable LIVER: Unremarkable BILIARY SYSTEM: Gallbladder is surgically absent. Bile ducts are not dilated. PANCREAS: Unremarkable SPLEEN: Unremarkable ADRENALS: Unremarkable KIDNEYS & URETERS: Unremarkable BLADDER: Unremarkable REPRODUCTIVE ORGANS: Unremarkable GASTROINTESTINAL: Scattered colonic diverticuli. Otherwise the stomach, small bowel, and colon are unremarkable. The appendix is normal. MESENTERY/PERITONEUM/RETROPERITONEUM: Unremarkable VASCULAR: Unremarkable LYMPH NODES: No adenopathy OSSEOUS & SOFT TISSUES: Unremarkable IMPRESSION: No acute abdominal or pelvic pathology on noncontrast CT of the abdomen and pelvis. Electronically signed by: Fernando Christianson MD (08/02/2020 2:19 PM) [id number]
[2020-08-02 14:53] LABS: BACTERIA,URINE FEW /HPF (0-FEW); BILIRUBIN,URINE NEG (NEG); CLARITY,URINE CLEAR; COLOR,URINE YELLOW; GLUCOSE,URINE NEG (NEG); NITRITE,URINE NEG (NEG); RBC,URINE OCC /HPF (0-2); SQUAMOUS EPITHELIAL CELL,UR FEW /LPF; UROBILINOGEN,URINE 0.2 mg/dL (0.2 mg/dL)
[2020-08-02 15:11] VITALS: BP 139/81
[2020-08-02 19:33] VITALS: BP 115/63
[2020-08-02] MEDS: ATORVASTATIN CALCIUM 20 MG TABLET PO SCH (20:36)
[2020-08-02] MEDS: METOPROLOL SUCC 24HR ER 25 MG TAB.ER.24H. PO SCH (20:36)
[2020-08-02 22:24] VITALS: BP 103/58
[2020-08-03 05:42] VITALS: BP 110/64
[2020-08-03] MEDS: IV NORMAL SALINE 1,000ML 1,000 ML IV SCH (05:45)
[2020-08-03] MEDS: ACETAMINOPHEN 325 MG TABLET PO PRN (06:03)
[2020-08-03] MEDS: clonazePAM 0.5 MG TABLET PO PRN (06:06)
[2020-08-03] MEDS: ASPIRIN CHEWABLE 81 MG TABLET. PO SCH (07:57)
[2020-08-03] MEDS: PANTOPRAZOLE 40 MG TABLET. PO SCH (07:57)
[2020-08-03] MEDS: DULoxetine HCL 30 MG CAPSULE.DR PO SCH (07:57)
[2020-08-03 09:56] LABS: BASO # 0.1 x10^3/uL (0.0-0.2); BASO % 1 % (0-3); EOS % 1 % (0-3); HEMATOCRIT 41.8 % (36.0-47.0); HEMOGLOBIN 13.6 g/dL (12.0-15.5); LYMPH # 2.9 x10^3/uL (1.0-4.8); LYMPH % 38 % (24-48); MEAN CORPUSCULAR HEMOGLOBIN 31 pg (25-35); MEAN CORPUSCULAR HGB CONC 33 g/dL (31-37); MEAN CORPUSCULAR VOLUME 96 fL (79-100); MONO # 0.5 x10^3/uL (0.0-1.1); MONO % 7 % (0-9); NEUT % 53 % (31-73); PLATELET COUNT 138 x10^3/uL (140-400); RED BLOOD COUNT 4.37 x10^6/uL (3.50-5.40); RED CELL DISTRIBUTION WIDTH 13.8 % (11.5-14.5); WHITE BLOOD COUNT 7.5 x10^3/uL (4.0-11.0)
[2020-08-03 09:58] LABS: CALCIUM 8.9 mg/dL (8.5-10.1); CREATININE 0.9 mg/dL (0.6-1.0); GFR 66.3; POTASSIUM 4.1 mmol/L (3.5-5.1)
[2020-08-03 10:44] VITALS: BP 120/64
== END 2020-08-03 13:53 | disposition short-term general hospital (02) | DRG 313 ==
LOC: ER 12:12 → OBSVTOIN 14:15 → INTOOBSV 14:15 → 1 SOUTH 14:15
PROVIDERS: ADMIT Family Medicine; ATTEND Family Medicine
DX: R07.89 Other chest pain (principal); N39.0 Urinary tract infection, site not specified; E78.00 Pure hypercholesterolemia, unspecified; E78.5 Hyperlipidemia, unspecified; F17.210 Nicotine dependence, cigarettes, uncomplicated; F32.9 Major depressive disorder, single episode, unspecified; F41.0 Panic disorder [episodic paroxysmal anxiety]; I10 Essential (primary) hypertension; I25.10 Atherosclerotic heart disease of native coronary artery without angina pectoris; I25.2 Old myocardial infarction; Z20.828 Contact with and (suspected) exposure to other viral communicable diseases; Z90.49 Acquired absence of other specified parts of digestive tract; Z95.5 Presence of coronary angioplasty implant and graft
CPT/HCPCS: 36415; 71045; 74176; 80048; 80053; 81001; 82150; 83690; 83880; 84484; 85025; 85379; 93005; 96374; 99406; J2270; J2405; Q0162; 99285-25; J7030

== ENCOUNTER 2020-08-10 15:35 | Emergency (ER) | payer SELFPAY ==
[~2020-08-10] VITALS: Ht 167.6 cm; Wt 52.1 kg
[~2020-08-10 15:35] MED LIST changes: +DULO30CA2 PO
[2020-08-10 15:42] VITALS: BP 121/77
--- NOTE | 2020-08-10 15:56 | PHYS DOC ---
Past History Past Medical History: Anxiety, CAD, Depression, High Cholesterol, Hypertension Additional Past Medical Histor: panic attacks Past Surgical History: Cholecystectomy, Other Additional Past Surgical Histo: BILE DUCT, CARDIAC STENT Smoking: Less than 1pk/day Alcohol Use: None General Adult EDM: Chief Complaint: SHORTNESS OF BREATH HPI: HPI: History obtained from patient. Patient is a 49-year-old female past medical history stemming for panic attacks, coronary artery disease, tobacco abuse who presents with chief complaint of sudden onset shortness of breath. States 1 hour prior to arrival she was sitting down when she suddenly began feeling rapid breathing. She noted some associated chest pressure that is nonradiating. She did try 0.5 mg of Ativan she was recently prescribed without relief. She states this does feel somewhat similar to previous panic attacks. She denies any exertional dyspnea or shortness of breath at baseline. Denies any PND. Denies cough or fever. States she was recently hospitalized and a cardiac evaluation without obvious etiology. States he does have follow-up point with her primary care physician in the next 3 days. Denies syncope. Denies feelings of irregular rapid heartbeat. Has been taking all of her home medications as prescribed. Denies any history of blood clot in legs or lungs. Does think she had a recent CAT scan of her chest that was normal. Denies nausea. Denies diaphoresis. No other complaints. Review of Systems: Review of Systems: Constitutional: Denies fever or chills Eyes: Denies change in visual acuity HENT: Denies nasal congestion or sore throat Respiratory: Positive shortness of breath Cardiovascular: Positive for chest pain GI: Denies abdominal pain, nausea, vomiting, bloody stools or diarrhea : Denies dysuria Musculoskeletal: Denies back pain or joint pain Integument: Denies rash Neurologic: Denies headache, focal weakness or sensory changes Endocrine: Denies polyuria or polydipsia Lymphatic: Denies swollen glands Psychiatric: Denies depression or anxiety Allergies: Allergies: Allergies Coded Allergies Type Severity Reaction Last Updated Verified Penicillins Allergy Intermediate 07/19/20 Yes Sulfa (Sulfonamide Antibiotics) Allergy Intermediate 07/19/20 Yes cyproheptadine Allergy Intermediate 07/19/20 Yes Physical Exam: PE: Constitutional: Well developed, well nourished, no acute distress, non-toxic appearance. [] HENT: Normocephalic, atraumatic, bilateral external ears normal, oropharynx moist, no oral exudates, nose normal. [] Eyes: PERRLA, EOMI, conjunctiva normal, no discharge. [] Neck: Normal range of motion, no tenderness, supple, no stridor. [] Cardiovascular:Heart rate regular rhythm, no murmur [] Lungs & Thorax: Bilateral breath sounds clear to auscultation [] Abdomen: Bowel sounds normal, soft, no tenderness, no masses, no pulsatile masses. [] Skin: Warm, dry, no erythema, no rash. [] Back: No tenderness, no CVA tenderness. [] Extremities: No tenderness, no cyanosis, no clubbing, ROM intact, no edema. [] Neurologic: Alert and oriented X 3, normal motor function, normal sensory function, no focal deficits noted. [] Psychologic: Anxious appearing] Current Patient Data: Labs: Laboratory Tests Test 08/10/20 16:21 White Blood Count 10.7 x10^3/uL Red Blood Count 4.72 x10^6/uL Hemoglobin 14.8 g/dL Hematocrit 44.9 % Mean Corpuscular Volume 95 fL Mean Corpuscular Hemoglobin 31 pg Mean Corpuscular Hemoglobin Concent 33 g/dL Red Cell Distribution Width 14.3 % Platelet Count 157 x10^3/uL Neutrophils (%) (Auto) 67 % Lymphocytes (%) (Auto) 24 % Monocytes (%) (Auto) 7 % Eosinophils (%) (Auto) 1 % Basophils (%) (Auto) 1 % Neutrophils # (Auto) 7.2 x10^3uL Lymphocytes # (Auto) 2.5 x10^3/uL Monocytes # (Auto) 0.8 x10^3/uL Eosinophils # (Auto) 0.1 x10^3/uL Basophils # (Auto) 0.1 x10^3/uL D-Dimer (Yadira) < 0.19 mg/L Sodium Level 140 mmol/L Potassium Level 4.0 mmol/L Chloride Level 106 mmol/L Carbon Dioxide Level 26 mmol/L Anion Gap 8 Blood Urea Nitrogen 9 mg/dL Creatinine 0.8 mg/dL Estimated GFR (Cockcroft-Gault) 75.9 BUN/Creatinine Ratio 11 Glucose Level 90 mg/dL Calcium Level 9.4 mg/dL Total Bilirubin 0.4 mg/dL Aspartate Amino Transf (AST/SGOT) 43 U/L Alanine Aminotransferase (ALT/SGPT) 70 U/L Alkaline Phosphatase 129 U/L Troponin I Quantitative < 0.017 ng/mL Total Protein 7.1 g/dL Albumin 3.8 g/dL Albumin/Globulin Ratio 1.2 Lipase 118 U/L Current Medications Medications (Trade) Dose Ordered Sig/Christina Route PRN Reason Start Time Stop Time Status Last Admin Dose Admin Lorazepam (Ativan) 1 mg 1X ONCE PO 08/10/20 16:30 08/10/20 16:31 DC 08/10/20 16:27 Vital Signs: Vital Signs Date Time Temp Pulse Resp B/P (MAP) Pulse Ox O2 Delivery O2 Flow Rate FiO2 08/10/20 15:42 98.5 98 16 121/77 (92) 100 Room Air EKG: EKG: [] EKG consistent with normal sinus rhythm. Ventricular rate of 85 bpm. Intervals normal. Weed normal. No acute ischemic changes noted. Normal EKG. Radiology/Procedures: Radiology/Procedures: [place] [address] IMAGING REPORT Signed PATIENT: AMANUEL RUFF IACCOUNT: [id number] : 1970 LOCATION: ER AGE: 49 SEX: F EXAM STATUS: REG ER ORD. PHYSICIAN: MANINDER ESCAMILLA DO REASON: SHORTNESS OF BREATH PROCEDURE: CHEST AP ONLY Single view of the chest. 08/10/2020 3:56 PM Indication: Reason: SHORTNESS OF BREATH / Spl. Instructions: / History: Comparison: Chest radiograph August 01, 2020 Findings: There is no focal consolidation. There is no pleural effusion or pneumothorax. The cardiomediastinal silhouette and pulmonary vasculature are within normal limits. No acute osseous abnormalities are seen. Impression: No evidence of acute cardiopulmonary process. Electronically signed by: Chi Hubbard MD (08/10/2020 4:30 PM) [id number] DICTATED AND SIGNED BY: CHI HUBBARD MD DATE: 08/10/20 1630 CC: RICO ARZATE MD; MANINDER ESCAMILLA DO ~MTH0 0 [] Heart Score: HEART Score for Chest Pain: HEART Score for Chest Pain Response (Comments) Value History Slighlty/Non-Suspicious 0 ECG Normal 0 Age >45 - < 65 1 Risk Factors >3 Risk Factors or Hx CAD 2 Troponin < Normal Limit 0 Total 3 Risk Factors: Risk Factors: DM, Current or recent (<one month) smoker, HTN, HLP, family history of CAD, obesity. Risk Scores: Score 0 - 3: 2.5% MACE over next 6 weeks - Discharge Home Score 4 - 6: 20.3% MACE over next 6 weeks - Admit for Clinical Observation Score 7 - 10: 72.7% MACE over next 6 weeks - Early Invasive Strategies Course & Med Decision Making: Course & Med Decision Making Pertinent Labs and Imaging studies reviewed. (See chart for details) [] Patient is a 49-year-old female who presents with chief complaint of sudden onset shortness of breath. Initial vital signs unremarkable. EKG without acute ischemic changes. Laboratory analysis grossly unremarkable. Troponin negative. By my estimation patient is low risk Wells and PERC criteria. D- dimer was obtained and was negative. CT PE study will be deferred. On repeat examination patient symptoms have resolved. Chart review was performed and patient has been seen multiple times recently for similar presentations. Cardiology has evaluated patient within the last 2 weeks and recommended outpatient testing with risk factor modification. She does state that she has follow-up appointment with her primary care physician in 3 days. Overall I do feel is reasonable to discharge patient home. Low risk heart score by my estimation. Return precautions discussed and understood. Patient is agreeable to this plan. Stable for discharge home. Dragon Disclaimer: Dragon Disclaimer: This electronic medical record was generated, in whole or in part, using a voice recognition dictation system. Departure Departure: Impression: Primary Impression: Dyspnea Qualified Codes: R06.00 - Dyspnea, unspecified Disposition: 01 DC HOME SELF CARE/HOMELESS Condition: STABLE Referrals: RICO ARZATE MD (PCP) Patient Instructions: Anxiety and Panic Attacks, Coronary Artery Disease Additional Instructions: Please follow-up with your primary care physician at your regularly scheduled appointment in 3 days MANINDER ESCAMILLA DO Aug 10, 2020 15:56
--- NOTE | 2020-08-10 16:05 | EKG ---
[address] [address] Test Date: 2020-08-10 Test Time: 15:59:11 Pat Name: AMANUEL RUFF Department: Room: Gender: F Direct Sales Consultant: SOBIA : 1970 Requested By: MANINDER ESCAMILLA Order Number: [id number] Reading MD: Martin Sevilla Measurements Intervals Black Rate: 85 P: 72 ME: 118 QRS: 39 QRSD: 78 T: 62 QT: 356 QTc: 424 Interpretive Statements SINUS RHYTHM NORMAL ECG Electronically Signed On 08-14-2020 10:57:56 CUSTOMER SERVICE TECHNICIAN by Martin Sevilla
[2020-08-10] MEDS ORDERED: LORazepam 1 MG TABLET PO ONE (16:30)
--- NOTE | 2020-08-10 16:33 | RAD ---
Single view of the chest. 08/10/2020 3:56 PM Indication: Reason: SHORTNESS OF BREATH / Spl. Instructions: / History: Comparison: Chest radiograph August 01, 2020 Findings: There is no focal consolidation. There is no pleural effusion or pneumothorax. The cardiomediastinal silhouette and pulmonary vasculature are within normal limits. No acute osseous abnormalities are seen. Impression: No evidence of acute cardiopulmonary process. Electronically signed by: Chi Cuevas MD (08/10/2020 4:30 PM) [id number]
[2020-08-10 16:37] LABS: BASO # 0.1 x10^3/uL (0.0-0.2); BASO % 1 % (0-3); EOS # 0.1 x10^3/uL (0.0-0.7); EOS % 1 % (0-3); HEMATOCRIT 44.9 % (36.0-47.0); HEMOGLOBIN 14.8 g/dL (12.0-15.5); LYMPH # 2.5 x10^3/uL (1.0-4.8); LYMPH % 24 % (24-48); MEAN CORPUSCULAR HEMOGLOBIN 31 pg (25-35); MEAN CORPUSCULAR HGB CONC 33 g/dL (31-37); MEAN CORPUSCULAR VOLUME 95 fL (79-100); MONO # 0.8 x10^3/uL (0.0-1.1); MONO % 7 % (0-9); NEUT # 7.2 x10^3uL (1.8-7.7); NEUT % 67 % (31-73); PLATELET COUNT 157 x10^3/uL (140-400); RED BLOOD COUNT 4.72 x10^6/uL (3.50-5.40); RED CELL DISTRIBUTION WIDTH 14.3 % (11.5-14.5); WHITE BLOOD COUNT 10.7 x10^3/uL (4.0-11.0)
[2020-08-10 16:46] LABS: CALCIUM 9.4 mg/dL (8.5-10.1); CREATININE 0.8 mg/dL (0.6-1.0); GFR 75.9
[2020-08-10 16:52] LABS: ALBUMIN 3.8 g/dL (3.4-5.0); ALBUMIN/GLOBULIN RATIO 1.2 (1.0-1.7); TOTAL BILIRUBIN 0.4 mg/dL (0.2-1.0); TOTAL PROTEIN 7.1 g/dL (6.4-8.2)
== END 2020-08-10 17:12 | disposition home or self-care (01) ==
LOC: ER 15:35
DX: R06.02 Shortness of breath (principal); R07.89 Other chest pain; F41.9 Anxiety disorder, unspecified; I25.10 Atherosclerotic heart disease of native coronary artery without angina pectoris; E78.00 Pure hypercholesterolemia, unspecified; I10 Essential (primary) hypertension; F17.200 Nicotine dependence, unspecified, uncomplicated; Z88.0 Allergy status to penicillin; Z88.2 Allergy status to sulfonamides; Z88.8 Allergy status to other drugs, medicaments and biological substances
CPT/HCPCS: 36415; 71045; 80053; 83690; 84484; 85025; 85379; 93005; 99285

== ENCOUNTER 2020-08-22 20:23 | Inpatient (IN) | payer SELFPAY ==
[~2020-08-22] VITALS: Ht 167.6 cm; Wt 54.2 kg
[2020-08-22] MEDS ORDERED: ASPIRIN 325 MG TABLET PO ONE (20:45)
[2020-08-22] MEDS ORDERED: MORPHINE SULFATE 4 MG/ML DISP.SYRIN. IV/SQ PRN (20:45)
[2020-08-22] MEDS ORDERED: FAMOTIDINE 20 MG/2 ML VIAL IVP ONE (20:45)
--- NOTE | 2020-08-22 20:46 | PHYS DOC ---
Past History Past Medical History: Anxiety, CAD, Depression, High Cholesterol, Hypertension, UT Additional Past Medical Histor: panic attacks (JONATHAN ZELAYA APRN) Past Surgical History: Cholecystectomy, Other Additional Past Surgical Histo: BILE DUCT, CARDIAC STENT (JONATHAN ZELAYA APRN) Smoking: Less than 1pk/day Alcohol Use: None (JONATHAN ZELAYA APRN) Adult General Chief Complaint Chief Complaint: CHEST PAIN HPI HPI Patient is a 49-year-old female patient with history of UT in 2017, hypertension, high cholesterol, anxiety, CAD, smoker who stopped smoking 5 days ago, who presents to the ED today complaining of 6 out of 10 heaviness to her chest that began 20 minutes prior to coming to the ED. Patient denies anything specifically exacerbating or relieving her chest pain. Denies any fever, cough or congestion. She states she checked her blood pressure this evening and the heart rate was in the 120s. (JONATHAN ZELAYA APRN) Review of Systems Review of Systems Constitutional: Denies fever or chills [] Eyes: Denies change in visual acuity, redness, or eye pain [] HENT: Denies nasal congestion or sore throat [] Respiratory: Denies cough or shortness of breath [] Cardiovascular: Reports chest pain and tachycardia GI: Denies abdominal pain, nausea, vomiting, bloody stools or diarrhea [] : Denies dysuria or hematuria [] Musculoskeletal: Denies back pain or joint pain [] Integument: Denies rash or skin lesions [] Neurologic: Denies headache, focal weakness or sensory changes [] All other systems were reviewed and found to be within normal limits, except as documented in this note. (JONATHAN ZELAYA APRN) Current Medications Current Medications Current Medications Medications (Trade) Dose Ordered Sig/Christina Start Time Stop Time Status Last Admin Dose Admin Aspirin (Donnell Aspirin) 325 mg 1X ONCE 08/22/20 20:45 08/22/20 20:46 Morphine Sulfate (Morphine 4mg Syringe) 4 mg PRN Q15MIN PRN 08/22/20 20:45 08/23/20 20:44 (JONATHAN ZELAYA APRN) Allergies Allergies Allergies Coded Allergies Type Severity Reaction Last Updated Verified Penicillins Allergy Intermediate 07/19/20 Yes Sulfa (Sulfonamide Antibiotics) Allergy Intermediate 07/19/20 Yes cyproheptadine Allergy Intermediate 07/19/20 Yes (JONATHAN ZELAYA APRN) Physical Exam Physical Exam Constitutional: Well developed, well nourished, no acute distress, non-toxic appearance. [] HENT: Normocephalic, atraumatic, bilateral external ears normal, oropharynx moist, no oral exudates, nose normal. [] Eyes: PERRLA, EOMI, conjunctiva normal, no discharge. [] Neck: Normal range of motion, no tenderness, supple, no stridor. [] Cardiovascular: Tachycardic Lungs & Thorax: Bilateral breath sounds clear to auscultation [] Abdomen: Bowel sounds normal, soft, no tenderness, no masses, no pulsatile masses. [] Skin: Warm, dry, no erythema, no rash. [] Back: No tenderness, no CVA tenderness. [] Extremities: No tenderness, no cyanosis, no clubbing, ROM intact, no edema. [] Neurologic: Alert and oriented X 3, normal motor function, normal sensory function, no focal deficits noted. [] Psychologic: Appears anxious (JONATHAN ZELAYA APRN) EKG EKG [address] Florence sinus tachycardia heart rate 104 no STEMI [] (JONATHAN ZELAYA APRN) Radiology/Procedures Radiology/Procedures []PROCEDURE: PORTABLE CHEST 1V Chest AP portable at 2033: Reason for examination: Chest pain. Comparison is made to previous study dated 08/10/2020. The heart size is normal. Mediastinum is unremarkable. Lung wiggins show a thin linear density at the right lung base which probably reflects some linear atelectasis. No congestion, other infiltrates or pleural effusions are seen. No acute bony abnormalities are seen. Impression: Thin linear density at the right lung base which may reflect some linear atelectasis. No other focal abnormalities in the chest. Electronically signed by: Justnya Felix MD (08/22/2020 9:41 PM) [facility] DICTATED AND SIGNED BY: JUSTYNA FELIX MD DATE: 08/22/202140 CC: RICO ARZATE MD; JONATHAN ZELAYA APRN ~MTH0 0 (JONATHAN ZELAYA APRN) Heart Score HEART Score for Chest Pain: HEART Score for Chest Pain Response (Comments) Value History Slighlty/Non-Suspicious 0 ECG Normal 0 Age >45 - < 65 1 Risk Factors >3 Risk Factors or Hx CAD 2 Troponin < Normal Limit 0 Total 3 Risk Factors: Risk Factors: DM, Current or recent (<one month) smoker, HTN, HLP, family history of CAD, obesity. Risk Scores: Risk Factors: DM, Current or recent (<one month) smoker, HTN, HLP, family history of CAD, obesity. (JONATHAN ZELAYA APRN) Course & Med Decision Making Course & Med Decision Making Pertinent Labs and Imaging studies reviewed. (See chart for details) This is a 49-year-old female patient presenting to the ED today complaining of chest pain and tachycardia that began 20 minutes prior to coming to the ED. EKG with slight tachycardia with a heart rate of 104. Troponin is normal, chest x- ray is negative, CBC and CMP with no acute findings. Spoke with Dr. Mclaughlin who accepted patient for admission. Cardiology consult placed. (JONATHAN ZELAYA APRN) Dragon Disclaimer Dragon Disclaimer This electronic medical record was generated, in whole or in part, using a voice recognition dictation system. (JONATHAN ZELAYA APRN) Departure Departure: Impression: Primary Impression: Chest pain Additional Impression: Tachycardia Disposition: ADMITTED INPT THIS HOSP Condition: STABLE Referrals: RICO ARZATE MD (PCP) Scripts Duloxetine Hcl (CYMBALTA) 30 Mg Capsule. 30 MG PO DAILY for depression for 30 Days, #30 CAP 3 Refills Prov: RICO ARZATE MD 08/23/20 Dragon Disclaimer This chart was dictated in whole or in part using Voice Recognition software in a busy, high-work load, and often noisy Emergency Department environment. It may contain unintended and wholly unrecognized errors or omissions. (CHARLIE MASTERSON MD) Attending Signature Attending Signature I have participated in the care of this patient and I have reviewed and agree with all pertinent clinical information above including history, exam, and recommendations. (CHARLIE MASTERSON MD) Problem Qualifiers Primary Impression: Chest pain Chest pain type: chest pain due to myocardial ischemia Ischemic chest pain type: unspecified angina pectoris type Qualified Codes: I25.9 - Chronic ischemic heart disease, unspecified JONATHAN ZELAYA APRN Aug 22, 2020 20:46 CHARLIE MASTERSON MD Aug 24, 2020 19:34
[2020-08-22 21:11] LABS: BASO # 0.1 x10^3/uL (0.0-0.2); BASO % 1 % (0-3); CALCIUM 9.7 mg/dL (8.5-10.1); EOS # 0.1 x10^3/uL (0.0-0.7); EOS % 1 % (0-3); GFR 58.7; HEMOGLOBIN 15.7 g/dL (12.0-15.5); LYMPH # 2.8 x10^3/uL (1.0-4.8); LYMPH % 23 % (24-48); MEAN CORPUSCULAR HEMOGLOBIN 32 pg (25-35); MEAN CORPUSCULAR HGB CONC 33 g/dL (31-37); MEAN CORPUSCULAR VOLUME 95 fL (79-100); MONO # 0.7 x10^3/uL (0.0-1.1); MONO % 6 % (0-9); NEUT # 8.5 x10^3uL (1.8-7.7); NEUT % 70 % (31-73); PLATELET COUNT 192 x10^3/uL (140-400); POTASSIUM 4.3 mmol/L (3.5-5.1); RED BLOOD COUNT 4.94 x10^6/uL (3.50-5.40); RED CELL DISTRIBUTION WIDTH 14.6 % (11.5-14.5); WHITE BLOOD COUNT 12.2 x10^3/uL (4.0-11.0)
[2020-08-22 21:27] LABS: ALBUMIN 4.2 g/dL (3.4-5.0); ALBUMIN/GLOBULIN RATIO 1.2 (1.0-1.7); TOTAL BILIRUBIN 0.3 mg/dL (0.2-1.0); TOTAL PROTEIN 7.6 g/dL (6.4-8.2)
[2020-08-22 21:36] LABS: AMPHETAMINE/METHAMPHETAMINE NEG (NEG); BARBITURATES NEG (NEG); BENZODIAZEPINES NEG (NEG); CANNABINOIDS NEG (NEG); COCAINE NEG (NEG); METHADONE NEG (NEG); OPIATES NEG (NEG); PHENCYCLIDINE NEG (NEG)
[2020-08-22 21:40] LABS: BILIRUBIN,URINE NEG (NEG); CLARITY,URINE CLEAR; COLOR,URINE YELLOW; GLUCOSE,URINE NEG (NEG); NITRITE,URINE NEG (NEG); RBC,URINE 0 /HPF (0-2); UROBILINOGEN,URINE 0.2 mg/dL (0.2 mg/dL)
[2020-08-22 21:41] LABS: BACTERIA,URINE 0 /HPF (0-FEW); SQUAMOUS EPITHELIAL CELL,UR FEW /LPF
--- NOTE | 2020-08-22 21:44 | RAD ---
Chest AP portable at 2033: Reason for examination: Chest pain. Comparison is made to previous study dated 08/10/2020. The heart size is normal. Mediastinum is unremarkable. Lung wiggins show a thin linear density at the right lung base which probably reflects some linear atelectasis. No congestion, other infiltrates or pleural effusions are seen. No acute bony abnormalities are seen. Impression: Thin linear density at the right lung base which may reflect some linear atelectasis. No other focal abnormalities in the chest. Electronically signed by: Jackelyn Armstrong MD (08/22/2020 9:41 PM) [facility]LEX
[2020-08-22] MEDS ORDERED: ONDANSETRON PF 4 MG/2 ML VIAL. IVP PRN (22:00)
[2020-08-22] MEDS ORDERED: MORPHINE SULFATE 2 MG/ML DISP.SYRIN. IVP PRN (22:00)
[2020-08-22] MEDS ORDERED: IOHEXOL 350 MG/ML 100 ML VIAL. IV ONE (22:00)
[2020-08-22] MEDS ORDERED: NITROGLYCERIN SUBLINGUAL 0.4 MG BOTTLE OF 25. SL PRN (22:00)
[2020-08-22] MEDS ORDERED: ONDANSETRON PF 4 MG/2 ML VIAL. IVP ONE (22:15)
[2020-08-22] MEDS ORDERED: CONTRAST GIVEN. MC PRN (22:15)
[2020-08-22] MEDS ORDERED: ALPRAZolam 0.25 MG TABLET PO ONE (22:15)
--- NOTE | 2020-08-22 22:30 | RAD ---
CT angiogram of the chest with contrast: Reason for examination: Chest pain. Helical images were obtained through the chest with intravenous administration of 99 cc Omnipaque 350 using PE protocol. 3-D MIPS reconstruction was performed in sagittal and coronal planes. Exposure: One or more of the following individualized dose reduction techniques were utilized for this examination: 1. Automated exposure control 2. Adjustment of the mA and/or kV according to patient size 3. Use of iterative reconstruction technique. No abnormality seen at the thyroid gland. The trachea and mainstem bronchi show no intraluminal lesions. No abnormality seen at the esophagus. The thoracic aorta is normal in course and caliber. The heart size is normal with no pericardial effusion. No significant adenopathy is seen. There is no evidence of pulmonary embolus. There are emphysematous changes bilaterally which are most pronounced in the upper lobes. No consolidated infiltrates or pleural effusions are seen. No pneumothorax is present. No abnormality seen at the liver, spleen, or adrenal glands. There is a small cyst at the upper pole left kidney measuring approximately 7 mm in size. IMPRESSION: Bullous emphysema which is most prominent in the upper lobes bilaterally. No pulmonary embolus. No other infiltrates or pleural effusions. Small 7 mm cyst at the upper pole of the left kidney. Electronically signed by: Jackelyn Armstrong MD (08/22/2020 10:27 PM) ALEX
[2020-08-22 23:17] VITALS: BP 119/69
[2020-08-23] MEDS ORDERED: OLAN2.5T3 PO (00:08)
[2020-08-23 05:31] VITALS: BP 109/72
[2020-08-23] MEDS ORDERED: NICOTINE 21MG PATCH. TD PRN (05:45)
[2020-08-23] MEDS ORDERED: clonazePAM 0.5 MG TABLET PO PRN (05:45)
--- NOTE | 2020-08-23 06:40 | EKG ---
[address] [address] Test Date: 2020-08-22 Test Time: 20:33:01 Pat Name: AMANUEL RUFF Department: Room: Gender: F [employer]: : 1970 Requested By: JONATHAN ZELAYA Order Number: [id number] Reading MD: Measurements Intervals [place] Rate: 104 P: 70 [place]: 128 QRS: 34 QRSD: 84 T: 58 QT: 320 QTc: 427 Interpretive Statements SINUS TACHYCARDIA INCOMPLETE RIGHT BUNDLE BRANCH BLOCK OTHERWISE NORMAL ECG RI6.02 No previous ECG available for comparison
[2020-08-23] MEDS ORDERED: PANTOPRAZOLE 40 MG TABLET. PO SCH (07:30)
--- NOTE | 2020-08-23 07:39 | PDOC2 ---
CARDIAC CONSULT DATE OF CONSULT DOS: DATE: 08/23/20 TIME: 07:36 REASON FOR CONSULT Reason for Consult Chest pain REFERRING PHYSICIAN Referring Physician Mariela Ledezma APRN SOURCE Source: Chart review, Patient HPI History of Present Illness This is a 49 yo female who presented secondary to chest pain. Patient reports pain began an hour prior to arrival. Located in her central chest just to the right of her sternum. Describes as pressure. Pain in non-radiating. No specific worsening factors. Improved some with morphine, although this made her feel bad otherwise. No associated diaphoresis, palpitations. Feeling slightly nauseated. No recent fevers, fatigued, illness, or shortness of breath with exertion. Has a history significant for anxiety. Previously on pantoprazole, but this was discontinued a week and a half ago due to possibly potentiating her anxiety. Patient reports pain to be different from what she experienced in 2017 when she required PCI/stent placement. Follow closely with [facility] cardiology team. Reports stress test earlier this year that "looked okay". PAST MEDICAL HISTORY Past Medical History Cardiovascular: CAD, HTN, hyperipidemia Psych: Anxiety, Depression PAST SURGICAL HISTORY Past Surgical History: Cholecystectomy FAMILY HISTORY Family History Other (no pertinent hx) SOCIAL HISTORY Social History Smoke: <1 pack per day ALCOHOL: none Drugs: None Lives: with Family CURRENT MEDICATIONS Current Medications Current Medications Aspirin (Donnell Aspirin) 325 mg 1X ONCE PO Last administered on 08/22/20at 21:05; Start 08/22/20 at 20:45; Stop 08/22/20 at 20:46; Status DC Morphine Sulfate (Morphine 4mg Syringe) 4 mg PRN Q15MIN PRN IV/SQ PAIN GREATER THAN 3/10 Last administered on 08/22/20at 21:06; Start 08/22/20 at 20:45; Stop 08/23/20 at 20:44 Famotidine (Pepcid Vial) 20 mg 1X ONCE IVP Last administered on 08/22/20at 21:05; Start 08/22/20 at 20:45; Stop 08/22/20 at 20:46; Status DC Ondansetron HCl (Zofran) 4 mg PRN Q4HRS PRN IVP NAUSEA/VOMITING Last administered on 08/23/20at 05:52; Start 08/22/20 at 22:00; Stop 08/23/20 at 21:59 Morphine Sulfate (Morphine 2mg Syringe) 2 mg PRN Q2HR PRN IVP PAIN; Start 08/22/20 at 22:00; Stop 08/23/20 at 21:59 Nitroglycerin (Nitrostat) 0.4 mg PRN Q5MIN PRN SL CHEST PAIN; Start 08/22/20 at 22:00; Stop 08/23/20 at 21:59 Iohexol (Omnipaque 350 Mg/ml) 100 ml 1X ONCE IV Last administered on 08/22/20at 22:07; Start 08/22/20 at 22:00; Stop 08/22/20 at 22:01; Status DC Info (Do NOT chart on this entry -- for MONITORING) 1 each PRN DAILY PRN MC SEE COMMENTS; Start 08/22/20 at 22:15; Stop 08/24/20 at 22:14 Alprazolam (Xanax) 0.5 mg 1X ONCE PO Last administered on 08/22/20at 22:35; Start 08/22/20 at 22:15; Stop 08/22/20 at 22:16; Status DC Ondansetron HCl (Zofran) 4 mg 1X ONCE IVP Last administered on 08/22/20at 22:35; Start 08/22/20 at 22:15; Stop 08/22/20 at 22:16; Status DC Aspirin (Aspirin Chewable) 81 mg DAILYWBKFT PO ; Start 08/23/20 at 08:00 Clonazepam (KlonoPIN) 0.5 mg PRN TID PRN PO ANXIETY Last administered on 08/23/20at 06:30; Start 08/23/20 at 05:45 Duloxetine HCl (Cymbalta) 30 mg DAILY PO ; Start 08/23/20 at 09:00 Metoprolol Succinate (Toprol Xl) 12.5 mg QHS PO ; Start 08/23/20 at 21:00 Nicotine (Nicoderm Cq 21mg Patch) 1 patch PRN DAILY PRN TD SMOKING CESSATION; Start 08/23/20 at 05:45 Olanzapine (ZyPREXA) 2.5 mg BID PO ; Start 08/23/20 at 09:00 Pantoprazole Sodium (Protonix) 40 mg DAILYAC PO ; Start 08/23/20 at 07:30 Atorvastatin Calcium (Lipitor) 80 mg QHS PO ; Start 08/23/20 at 21:00 Active Scripts Active Reported Zyprexa (Olanzapine) 2.5 Mg Tablet 1 Tab PO BID Cymbalta (Duloxetine Hcl) 30 Mg Capsule.dr 1 Cap PO DAILY NICODERM CQ 21mg (Nicotine) 1 Each Patch.td24 1 Patch TD DAILY PRN NOT GIVEN IN THE HOSPITAL NEXT DOSE DUE: DATE: TODAY TIME: IF AND WHEN NEEDED Clonazepam 0.5 Mg Tablet 1 Tab PO TID PRN LAST DOSE GIVEN: DATE: TODAY TIME: AM NEXT DOSE DUE: DATE: TODAY TIME: AFTERNOON IF NEEDED Metoprolol Succinate ( Xl ) (Metoprolol Succinate) 25 Mg Tab.er.24h 12.5 Mg PO QHS NEXT DOSE DUE: DATE: TONITE TIME: AT BEDTIME Atorvastatin Calcium 80 Mg Tablet 80 Mg PO QHS NEXT DOSE DUE: DATE: TONITE TIME: AT BEDTIME Aspirin 81 Mg Tab.chew 81 Mg PO DAILY LAST DOSE GIVEN: DATE: TODAY TIME: AM NEXT DOSE DUE: DATE: TOMORROW TIME: AM Pantoprazole Sodium 40 Mg Tablet.dr 40 Mg PO DAILY LAST DOSE GIVEN: DATE: TODAY TIME: AM NEXT DOSE DUE: DATE: TOMORROW TIME: AM ALLERGIES Allergies: Coded Allergies: Penicillins (Verified Allergy, Intermediate, 07/19/20) Sulfa (Sulfonamide Antibiotics) (Verified Allergy, Intermediate, 07/19/20) cyproheptadine (Verified Allergy, Intermediate, 07/19/20) caused her HR and her BP to go up ROS Review of Systems 14 point ROS conducted with pertinent positives noted above in HPI PHYSICAL EXAM Physical Exam General: Alert, Oriented X3, Cooperative, No acute distress HEENT: Atraumatic, Mucous membr. moist/pink Lungs: Clear to auscultation Heart: Regular rate Abdomen: Soft Extremities: No edema, Normal pulses Skin: No breakdown Neuro: Normal speech, Sensation intact Psych/Mental Status: Mental status NL, Mood WNL MUSCULOSKELETAL: Osteoarthritic changes both hands VITALS Vital Signs Vital Signs Date Time Temp Pulse Resp B/P (MAP) Pulse Ox O2 Delivery O2 Flow Rate FiO2 08/23/20 05:31 97.5 82 20 109/72 (84) 94 Room Air LABS LABS Laboratory Tests Test 08/22/20 20:45 08/22/20 20:55 08/22/20 23:38 12/10/20 02:31 White Blood Count 12.2 x10^3/uL (4.0-11.0) Red Blood Count 4.94 x10^6/uL (3.50-5.40) Hemoglobin 15.7 g/dL (12.0-15.5) Hematocrit 47.0 % (36.0-47.0) Mean Corpuscular Volume 95 fL (79-100) Mean Corpuscular Hemoglobin 32 pg (25-35) Mean Corpuscular Hemoglobin Concent 33 g/dL (31-37) Red Cell Distribution Width 14.6 % (11.5-14.5) Platelet Count 192 x10^3/uL (140-400) Neutrophils (%) (Auto) 70 % (31-73) Lymphocytes (%) (Auto) 23 % (24-48) Monocytes (%) (Auto) 6 % (0-9) Eosinophils (%) (Auto) 1 % (0-3) Basophils (%) (Auto) 1 % (0-3) Neutrophils # (Auto) 8.5 x10^3uL (1.8-7.7) Lymphocytes # (Auto) 2.8 x10^3/uL (1.0-4.8) Monocytes # (Auto) 0.7 x10^3/uL (0.0-1.1) Eosinophils # (Auto) 0.1 x10^3/uL (0.0-0.7) Basophils # (Auto) 0.1 x10^3/uL (0.0-0.2) Prothrombin Time 10.7 SEC (9.4-11.4) Prothromb Time International Ratio 1.0 (0.9-1.1) Activated Partial Thromboplast Time 26 SEC (23-33) D-Dimer (Yadira) 0.91 mg/L (0.00-0.50) Sodium Level 143 mmol/L (136-145) Potassium Level 4.3 mmol/L (3.5-5.1) Chloride Level 104 mmol/L (98-107) Carbon Dioxide Level 28 mmol/L (21-32) Anion Gap 11 (6-14) Blood Urea Nitrogen 19 mg/dL (7-20) Creatinine 1.0 mg/dL (0.6-1.0) Estimated GFR (Cockcroft-Gault) 58.7 BUN/Creatinine Ratio 19 (6-20) Glucose Level 87 mg/dL (70-99) Calcium Level 9.7 mg/dL (8.5-10.1) Magnesium Level 2.0 mg/dL (1.8-2.4) Total Bilirubin 0.3 mg/dL (0.2-1.0) Aspartate Amino Transf (AST/SGOT) 25 U/L (15-37) Alanine Aminotransferase (ALT/SGPT) 48 U/L (14-59) Alkaline Phosphatase 175 U/L (46-116) Creatine Kinase 83 U/L (26-192) Creatine Kinase MB (Mass) 0.6 ng/mL (0.0-3.6) Creatine Kinase MB Relative Index 0.7 % (0-4) Troponin I Quantitative < 0.017 ng/mL (0-0.055) < 0.017 ng/mL (0-0.055) < 0.017 ng/mL (0-0.055) QF-Hbd-P-Type Natriuretic Peptide 41 pg/mL (0-124) Total Protein 7.6 g/dL (6.4-8.2) Albumin 4.2 g/dL (3.4-5.0) Albumin/Globulin Ratio 1.2 (1.0-1.7) Urine Collection Type Unknown Urine Color Yellow Urine Clarity Clear Urine pH 5.5 Urine Specific [place] 1.010 Urine Protein Neg (NEG-TRACE) Urine Glucose (UA) Neg mg/dL (NEG) Urine Ketones (Stick) Neg mg/dL (NEG) Urine Blood Neg (NEG) Urine Nitrite Neg (NEG) Urine Bilirubin Neg (NEG) Urine Urobilinogen Dipstick 0.2 mg/dL (0.2 mg/dL) Urine Leukocyte Esterase Neg (NEG) Urine RBC 0 /HPF (0-2) Urine WBC 1-4 /HPF (0-4) Urine Squamous Epithelial Cells Few /LPF Urine Bacteria 0 /HPF (0-FEW) Urine Opiates Screen Neg (NEG) Urine Methadone Screen Neg (NEG) Urine Barbiturates Neg (NEG) Urine Phencyclidine Screen Neg (NEG) Urine Amphetamine/Methamphetamine Neg (NEG) Urine Benzodiazepines Screen Neg (NEG) Urine Cocaine Screen Neg (NEG) Urine Cannabinoids Screen Neg (NEG) Urine Ethyl Alcohol Neg (NEG) ASSESSMENT/PLAN Assessment/Plan 1. Chest pain, atypical; AMI ruled out. Most probable GI in nature. Has been off pantoprazole for a week and a half due to increase anxiety 2. CAD s/p PCI/stent in 2017. Follows with [facility] cardiology, Dr. Figueroa. Reports normal nuclear stress testing earlier this year 3. Hypertension; controlled 4. Hyperlipidemia; statin 5. Anxiety, depression 6. Tobaccoism; quit Thursday. Encouraged ongoing cessation Recommendation Continue secondary prevention measures including ASA, statin, low-dose BB therapy Consider outpatient ischemic evaluation PPI as per IM Follow up with primary travel physical therapist upon discharge KIM HUYNH APRN Aug 23, 2020 07:39
[2020-08-23] MEDS ORDERED: ASPIRIN CHEWABLE 81 MG TABLET. PO SCH (08:00)
[2020-08-23] MEDS ORDERED: LORA0.5T21 PO (08:08)
[2020-08-23] MEDS ORDERED: LORazepam 0.5 MG TABLET PO PRN (08:15)
[2020-08-23] MEDS ORDERED: DULoxetine HCL 30 MG CAPSULE.DR PO SCH ×2 (09:00)
[2020-08-23] MEDS ORDERED: OLANZapine 2.5 MG TABLET PO SCH (09:00)
[2020-08-23] MEDS ORDERED: DULO30CA2 PO (09:24)
--- NOTE | 2020-08-23 10:51 | HP ---
ADMIT DATE: 08/22/2020 HISTORY OF PRESENT ILLNESS: A 49-year-old female came in with chest pain, substernal chest discomfort when she came in through the Emergency Room. The patient has a history of hypertension, hypercholesterolemia, severe anxiety and smoking history, heavy risk factors. The patient had a 6/10, radiating of her pain in her chest that lasted about 20 minutes. Other than that, she denies shortness of breath, fever, chills, coughing, loss of taste, loss of smell. No one COVID-19 around her. The patient was admitted for rule out [place] protocol. The patient is also very depressed, feels overwhelmed. [facility] and will also have her encouraged to follow up with them as well. PAST MEDICAL HISTORY: The patient has had previous history of heart attack, coronary stent placement, hypertension, cholecystectomy, severe GERD, psychiatric problems, panic disorder, depression, anxiety, tobacco abuse. IMMUNIZATIONS: No immunizations update. ALLERGIES: PENICILLIN, SULFA and CYPROHEPTADINE. FAMILY HISTORY: Noncontributory. SOCIAL HISTORY: The patient has about a 63-lvmn-adsp history of smoking. Occasional heavy alcohol use. Denies hard drug use. The patient is full code. REVIEW OF SYSTEMS: The patient notes high anxiety, very troubled by appears to be felt to have phobia, anxiety, depression, feeling overwhelmed. Denies having any suicidal plans or ideation. The patient does have trouble with her stomach with reflux. The patient otherwise denies any other problems along that line. Denies any melena, hematochezia, hematemesis and neurologically intact. PHYSICAL EXAMINATION: GENERAL: This is a frail-appearing white female looking older than her stated age. VITAL SIGNS: Blood pressure 130/70, respiratory rate 20, pulse 90, afebrile, 94 on room air. HEENT: The patient's head was atraumatic, normocephalic. Eyes: PERRLA without jaundice. The patient has poor dentition. NECK: Supple. LUNGS: Diminished, poor movement of air, but basically clear. CARDIOVASCULAR: Regular sinus rhythm, S1, S2, without murmur, rub, thrill, or extra heart sound. ABDOMEN: Soft, nontender, no rebound or guarding. Positive bowel sounds, no hepatosplenomegaly. EXTREMITIES: No clubbing, cyanosis, nor edema. NEUROLOGIC: The patient is alert and oriented x 3. PSYCHIATRY: Psychologically, the patient is to have a high anxiety of her multiple things, depression, denies suicidal or homicidal ideation, but does feel extremely overwhelmed, need psychiatric evaluation. The patient also was referred on to Dr. Abhishek Juarez for GI consult for her GERD and reflux and she keeps having this chest pain, she will change doctors, Dr. Nick Linder, apparently been seen by doctors at [facility], but this become too far for her to travel and followup with the [facility]. Also, we started on her Cymbalta for her depression along with her Zyprexa and Ativan, see the otherwise hemorrhage. She will be on a heart healthy diet, decreased activity. Continue with nicotine patches to help her stop her smoking and make further evaluation there. RICO ARZATE MD DR: ORACIO/elmira JOB#: [id number] / [id number]
[2020-08-23] MEDS ORDERED: ATORVASTATIN CALCIUM 20 MG TABLET PO SCH (21:00)
[2020-08-23] MEDS ORDERED: METOPROLOL SUCC 24HR ER 25 MG TAB.ER.24H. PO SCH (21:00)
== END 2020-08-23 10:05 | disposition home or self-care (01) | DRG 392 ==
LOC: ER 20:23 → 1 SOUTH 21:59 → ER 22:51
PROVIDERS: ADMIT Family Medicine; ATTEND Family Medicine
DX: K21.9 Gastro-esophageal reflux disease without esophagitis (principal); I25.10 Atherosclerotic heart disease of native coronary artery without angina pectoris; E78.00 Pure hypercholesterolemia, unspecified; I25.2 Old myocardial infarction; F41.0 Panic disorder [episodic paroxysmal anxiety]; I10 Essential (primary) hypertension; E78.5 Hyperlipidemia, unspecified; F32.9 Major depressive disorder, single episode, unspecified; Z90.49 Acquired absence of other specified parts of digestive tract; Z95.5 Presence of coronary angioplasty implant and graft; F17.210 Nicotine dependence, cigarettes, uncomplicated; Z88.0 Allergy status to penicillin; Z88.2 Allergy status to sulfonamides; Z88.8 Allergy status to other drugs, medicaments and biological substances
CPT/HCPCS: 36415; 71045; 71275; 80053; 80307; 81001; 82553; 83735; 83880; 84443; 84484; 85025; 85379; 85610; 85730; 93005; 96374; 96375; J2270; J2405; J3490; Q9967; 99285-25

== ENCOUNTER 2020-08-24 08:30 | Emergency (ER) | payer SELFPAY ==
[~2020-08-24] VITALS: Ht 167.6 cm; Wt 54.0 kg
[~2020-08-24 08:30] MED LIST changes: +LORA0.5T21 PO; +OLAN2.5T3 PO
--- NOTE | 2020-08-24 08:59 | PHYS DOC ---
Past History Past Medical History: Anxiety, CAD, Depression, High Cholesterol, Hypertension, [place] Additional Past Medical Histor: panic attacks Past Surgical History: Cholecystectomy, Other Additional Past Surgical Histo: BILE DUCT, CARDIAC STENT Smoking: Less than 1pk/day Additional Smoking Information: 09/17-09/15 PPD Alcohol Use: None General Adult EDM: Chief Complaint: SYNCOPE HPI: HPI: 49-year-old female past medical history significant for CAD (2016 tigre Nguyen, on asa no plavix), days, hypertension, anxiety depression presents the ED with complaints of "I just collapsed," prior to arrival. Patient reports she went to her bathroom and took her morning medications and when walking back to her bed she collapsed and woke up on carpeted floor, "my head just missed by dresser." On no AC. Now c/o midsternal nonradiating chest "pressure," that started upon wakening with associated nausea, stating "my anxiety is bad." No prior h/o syncope drug use/cocaine use or blood clots. No FH cardiac arrhythmias, clotting disorders, connective tissue disease, aortic disease or sudden under the age of 50. Patient was discharged from the [facility] in the past 24 hours for chest pain evaluation. CTA of the chest 2 days ago showed bullous emphysema, no pulmonary emboli with normal-appearing thoracic aorta. Covid negative 07/26/20. EMR reviewed-has had 13 troponins < 0.017 since 03/2020. Drug screen negative. D-dimer elevated 0.91. Reports last meal was last night. Pt very anxious on exam and later reported to RN "I'd just rather be ." Review of Systems: Review of Systems: Constitutional: Denies fever or chills Eyes: Denies change in visual acuity HENT: Denies nasal congestion or sore throat Respiratory: Denies cough or shortness of breath Cardiovascular: Denies edema or weight gain GI: Denies abdominal pain, vomiting, bloody stools or diarrhea : Denies dysuria Musculoskeletal: Denies back pain or joint pain Integument: Denies rash Neurologic: Denies headache, focal weakness or sensory changes Endocrine: Denies polyuria or polydipsia Lymphatic: Denies swollen glands Psychiatric: reports depression and anxiety and SI Allergies: Allergies: Allergies Coded Allergies Type Severity Reaction Last Updated Verified Penicillins Allergy Intermediate 08/24/20 Yes Sulfa (Sulfonamide Antibiotics) Allergy Intermediate 08/24/20 Yes cyproheptadine Allergy Intermediate 08/24/20 Yes Physical Exam: PE: Constitutional: no acute distress, non-toxic appearance, very thin -anorexia? (cyproheptadine allergy) HENT: Normocephalic, atraumatic, Eyes: EOMI, conjunctiva normal, no discharge, dry mucous membranes Neck: Normal range of motion, supple, Cardiovascular: S1/2 present, regular rhythm Lungs & Thorax: Speaking in full sentences, bilateral equal chest rise, no tachypnea or increased work of breathing Abdomen: soft, no tenderness, Skin: Warm, dry, no erythema, no rash. [] Back: No tenderness, no CVA tenderness. [] Extremities: No tenderness, no cyanosis, no edema Neurologic: Alert and oriented X 3, normal motor function, normal sensory function, no focal deficits noted. [] Psychologic: Affect normal, judgement normal, mood -anxious Current Patient Data: Vital Signs: Vital Signs Date Time Temp Pulse Resp B/P (MAP) Pulse Ox O2 Delivery O2 Flow Rate FiO2 08/24/20 08:40 97.8 95 20 128/73 (91) 98 EKG: EKG: Sinus rhythm at 93 bpm, no axis deviation, normal intervals, T wave inversion aVL, no ST elevations or ST depressions Radiology/Procedures: Radiology/Procedures: IMAGING REPORT Signed PATIENT: AMANUEL RUFF IACCOUNT: [id number] : 1970 LOCATION: ER AGE: 49 SEX: F EXAM STATUS: REG ER ORD. PHYSICIAN: JIMI PERLA DO REASON: chest pain, r/o dissection PROCEDURE: CT ANGIOGRAPHY CHEST CTA CHEST INDICATION: Reason: chest pain, r/o dissection / Spl. Instructions: / History: . Comparison: 08/22/2020. TECHNIQUE: Following the uneventful administration of intravenous contrast, 100 cc Omnipaque 350, axial CT sections were obtained through the lungs and upper abdomen. Multiplanar reconstructions and MIP images were obtained. PQRS compliance statement: One or more of the following individualized dose reduction techniques were utilized for this examination: 1. Automated exposure control 2. Adjustment of the mA and/or kV according to patient size 3. Use of iterative reconstruction technique FINDINGS: Lungs and Airways: No pulmonary mass or consolidation. Paraseptal and centrilobular emphysema. Biapical subpleural fibrosis No abnormality of the central airways. Pleura: The pleural spaces are normal. Heart and Mediastinum: The visualized thyroid is normal in size and attenuation. No axillary or supraclavicular lymphadenopathy. No mediastinal, hilar or retrocrural lymphadenopathy. Normal cardiac size. Coronary artery atherosclerotic disease. No dissection or aneurysm of the thoracic aorta. Atherosclerosis of the thoracic aorta. No evidence of pulmonary thromboembolic disease. Abdomen: Limited images through the upper abdomen show no abnormality of the visualized organs. Bones and Soft Tissues: The visualized bones and chest wall soft tissues are w ithin normal limits. IMPRESSION: 1. No aneurysm or dissection of the thoracic aorta. No evidence of pulmonary thrombolic disease. 2. No pulmonary mass or consolidation. 3. Coronary artery atherosclerotic disease. Electronically signed by: Corie Boss MD (08/24/2020 9:56 AM) [id number] DICTATED AND SIGNED BY: CORIE BOSS MD DATE: 08/24/20948 CC: RICO ARZATE MD; JIMI PERLA DO ~MTH0 0 IMAGING REPORT Signed PATIENT: AMANUEL RUFF IACCOUNT: [id number] : 1970 LOCATION: ER AGE: 49 SEX: F EXAM STATUS: REG ER ORD. PHYSICIAN: JIMI PERLA DO REASON: syncope PROCEDURE: PORTABLE CHEST 1V INDICATION: Reason: syncope / Spl. Instructions: / History: COMPARISON: August 22, 2020 FINDINGS: Single view of chest obtained. Hyperexpanded lungs without definite focal airspace consolidation. Cardiac silhouette unremarkable. IMPRESSION: * No focal airspace consolidation. * Hyperexpanded lungs which can be seen with emphysema. Electronically signed by: Raissa Green MD (08/24/2020 9:20 AM) [id number] DICTATED AND SIGNED BY: RAISSA GREEN MD DATE: 08/24/20915 CC: RICO ARZATE MD; JIMI PERLA DO ~MTH0 0 Impressions: Per Simpson syncope rule Patient IS in the low-risk group for serious outcome. Heart Score: HEART Score for Chest Pain: HEART Score for Chest Pain Response (Comments) Value History Slighlty/Non-Suspicious 0 ECG Normal 0 Age >45 - < 65 1 Risk Factors >3 Risk Factors or Hx CAD 2 Troponin < Normal Limit 0 Total 3 Risk Factors: Risk Factors: DM, Current or recent (<one month) smoker, HTN, HLP, family history of CAD, obesity. Risk Scores: Score 0 - 3: 2.5% MACE over next 6 weeks - Discharge Home Score 4 - 6: 20.3% MACE over next 6 weeks - Admit for Clinical Observation Score 7 - 10: 72.7% MACE over next 6 weeks - Early Invasive Strategies Course & Med Decision Making: Course & Med Decision Making Pertinent Labs and Imaging studies reviewed. (See chart for details) Concern for atypical chest pain and syncope in a pt with recent cardiac admission/eval-given patient's presentation I do suspect her symptoms are anxiety related. Two troponins are negative. CT of the chest shows no dissection and patient had a CTA that ruled out a pulmonary embolus 2 days ago. Today her D-dimer is now within normal limits. Patient with nonspecific leukocytosis. Rapid Covid antigen is negative. Vitals wnl. I re-evaluated pt who reported suicidal thoughts, worsening depression and "I'd rather be ." Has no specific suicidal plan and is voluntary for psych placement/treatment. Life-threatening processes were considered but are low suspicion at this time, given history and physical exam. Patient is now medically cleared and voluntary for inpatient psych admission. Accepted to [facility], Dr. Lorna Beckwith. Life/limb-threatening differential includes but is not limited to, acute myocardial infarction, aortic dissection, congestive heart failure, esophageal injury including rupture, surgical abdomen, arrhythmia, cardiomyopathy, myocarditis, pericarditis, peptic ulcer disease, pneumomediastinum, pneumonia, pneumothorax, pulmonary embolus, unstable angina, rib fracture, contusion, pericardial tamponade or effusion, pulmonary contusion, abdominal aortic aneurysm, anemia, valvular disorder, cerebrovascular accident, drug overdose or toxidrome, prolonged QT syndrome, hemorrhage, heat illness, intracranial hemorrhage, infection including meningitis/encephalitis/sepsis/toxic shock/myocarditis, vertebrobasilar insufficiency, seizure, medication adverse event, illicit drug use, electrolyte disorder Holly Disclaimer: Holly Disclaimer: This electronic medical record was generated, in whole or in part, using a voice recognition dictation system. Departure Departure: Impression: Primary Impression: Syncope Additional Impressions: Chest pain Suicidal ideations Disposition: 65 DC/TRF TO PSYCH HOSP ([facility], Dr. Lorna Beckwith.) Condition: STABLE Referrals: RICO ARZATE MD (PCP) JIMI MADRIGAL DO Aug 24, 2020 08:59
[2020-08-24] MEDS ORDERED: ONDANSETRON PF 4 MG/2 ML VIAL. IVP ONE (09:00)
[2020-08-24] MEDS ORDERED: KETOROLAC 15 MG/ML VIAL. IVP ONE (09:00)
[2020-08-24 09:01] LABS: BASO # 0.1 x10^3/uL (0.0-0.2); BASO % 1 % (0-3); EOS # 0.2 x10^3/uL (0.0-0.7); EOS % 1 % (0-3); HEMATOCRIT 46.6 % (36.0-47.0); HEMOGLOBIN 15.3 g/dL (12.0-15.5); LYMPH # 2.6 x10^3/uL (1.0-4.8); LYMPH % 19 % (24-48); MEAN CORPUSCULAR HEMOGLOBIN 31 pg (25-35); MEAN CORPUSCULAR HGB CONC 33 g/dL (31-37); MEAN CORPUSCULAR VOLUME 95 fL (79-100); MONO % 7 % (0-9); NEUT % 73 % (31-73); PLATELET COUNT 207 x10^3/uL (140-400); RED BLOOD COUNT 4.93 x10^6/uL (3.50-5.40); RED CELL DISTRIBUTION WIDTH 14.5 % (11.5-14.5); WHITE BLOOD COUNT 13.8 x10^3/uL (4.0-11.0)
[2020-08-24 09:10] LABS: PREG TEST PT QUAL NEGATIVE (NEG)
[2020-08-24 09:11] LABS: CALCIUM 9.8 mg/dL (8.5-10.1); CREATININE 0.9 mg/dL (0.6-1.0); GFR 66.3; POTASSIUM 3.7 mmol/L (3.5-5.1)
[2020-08-24] MEDS ORDERED: IOHEXOL 350 MG/ML 100 ML VIAL. IV ONE (09:15)
[2020-08-24 09:24] LABS: ALBUMIN 3.9 g/dL (3.4-5.0); ALBUMIN/GLOBULIN RATIO 1.1 (1.0-1.7); TOTAL BILIRUBIN 0.8 mg/dL (0.2-1.0); TOTAL PROTEIN 7.6 g/dL (6.4-8.2)
--- NOTE | 2020-08-24 13:33 | RAD ---
INDICATION: Reason: syncope / Spl. Instructions: / History: COMPARISON: August 22, 2020 FINDINGS: Single view of chest obtained. Hyperexpanded lungs without definite focal airspace consolidation. Cardiac silhouette unremarkable. IMPRESSION: * No focal airspace consolidation. * Hyperexpanded lungs which can be seen with emphysema. Electronically signed by: Miguel Little MD (08/24/2020 9:20 AM) [id number]
--- NOTE | 2020-08-24 13:33 | EKG ---
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
--- NOTE | 2020-08-24 13:34 | RAD ---
CTA CHEST INDICATION: Reason: chest pain, r/o dissection / Spl. Instructions: / History: . Comparison: 08/22/2020. TECHNIQUE: Following the uneventful administration of intravenous contrast, 100 cc Omnipaque 350, axi al CT sections were obtained through the lungs and upper abdomen. Multiplanar reconstructions and MIP images were obtained. RS compliance statement: One or more of the following individualized dose reduction techniques were utilized for this examinat ion: 1. Automated exposure control 2. Adjustment of the mA and/or kV according to patient size 3. Use of iterative reconstruction technique FINDINGS: Lungs and Airways: No pulmonary mass or consolidation. Paraseptal and centrilobular emphysema. Biapic al subpleural fibrosis No abnormality of the central airways. Pleura: The pleural spaces are normal. Heart and Mediastinum: The visualized thyroid is normal in size and attenuation. No axillary or supra clavicular lymphadenopathy. No mediastinal, hilar or retrocrural lymphadenopathy. Normal cardiac size . Coronary artery atherosclerotic disease. No dissection or aneurysm of the thoracic aorta. Atheroscl erosis of the thoracic aorta. No evidence of pulmonary thromboembolic disease. Abdomen: Limited images through the upper abdomen show no abnormality of the visualized organs. Bones and Soft Tissues: The visualized bones and chest wall soft tissues are within normal limits. IMPRESSION: 1. No aneurysm or dissection of the thoracic aorta. No evidence of pulmonary thrombolic disease. 2. No pulmonary mass or consolidation. 3. Coronary artery atherosclerotic disease. Electronically signed by: Amanuel Boss MD (08/24/2020 9:56 AM) [id number]
[2020-08-24] MEDS ORDERED: ONDANSETRON ODT 4 MG TAB.RAPDIS PO ONE (16:30)
[2020-08-24] MEDS ORDERED: LORazepam 1 MG TABLET PO ONE (16:30)
[2020-08-24 18:10] VITALS: BP 147/80
[2020-08-24 19:15] LABS: BARBITURATES NEG (NEG); BENZODIAZEPINES NEG (NEG); CANNABINOIDS NEG (NEG); COCAINE NEG (NEG); METHADONE NEG (NEG); OPIATES NEG (NEG); PHENCYCLIDINE NEG (NEG)
[2020-08-24 19:19] LABS: AMPHETAMINE/METHAMPHETAMINE NEG (NEG)
== END 2020-08-24 18:30 ==
LOC: ER 08:30
DX: R55 Syncope and collapse (principal); R07.89 Other chest pain; R45.851 Suicidal ideations; F41.9 Anxiety disorder, unspecified; I25.10 Atherosclerotic heart disease of native coronary artery without angina pectoris; F31.9 Bipolar disorder, unspecified; E78.00 Pure hypercholesterolemia, unspecified; I10 Essential (primary) hypertension; I25.2 Old myocardial infarction; F17.200 Nicotine dependence, unspecified, uncomplicated; Z20.828 Contact with and (suspected) exposure to other viral communicable diseases; Z88.0 Allergy status to penicillin; Z88.2 Allergy status to sulfonamides; Z88.8 Allergy status to other drugs, medicaments and biological substances
CPT/HCPCS: 36415; 71045; 71275; 80053; 80307; 83735; 83880; 84484; 84703; 85025; 85379; 87426; 93005; 96374; 96375; 99285; C9803; J1885; J2405; Q0162; Q9967; U0003

== ENCOUNTER 2020-09-23 07:51 | Inpatient (IN) | payer SELFPAY ==
[~2020-09-23] VITALS: Ht 170.2 cm; Wt 64.9 kg
[~2020-09-23 07:51] MED LIST changes: -CLIN300C8 PO; +CLIN300C9 PO
--- NOTE | 2020-09-23 08:03 | PHYS DOC ---
Past History Past Medical History: Anxiety, CAD, Depression, High Cholesterol, Hypertension, [place] Additional Past Medical Histor: panic attacks Past Surgical History: Cholecystectomy, Other Additional Past Surgical Histo: BILE DUCT, CARDIAC STENT Smoking: Less than 1pk/day Alcohol Use: None Adult General Chief Complaint Chief Complaint: CHEST PAIN HPI HPI Patient is a 49-year-old female presenting for chest pain. Onset was 1 hour ago while patient was relaxing sitting in home recliner. Nothing known makes better or worse. Patient reports a dull aching pain that radiates to her left shoulder, currently rates at 5/10 in severity. Pain has been constant and unchanged since onset. Associated symptoms include dizziness, nausea and GI upset since onset. Patient denies fever, COVID-19 exposure, syncope, ripping or tearing type chest pain, shortness of breath, cough, abdominal pain, changes in bladder or bowel function, no motor or sensory function changes past baseline. Patient does have significant cardiac history, has x1 stent that was placed in 2017 to unknown coronary vessel, has been on appropriate therapy ever since. States she took all medicines this morning that included an 81 mg aspirin. Of note, patient woke up in the middle of the night and ate chocolate ice cream at 0200 hrs. Review of Systems Review of Systems Fourteen body systems of review of systems have been reviewed. See HPI for pertinent positives and negative responses, other calvert all other systems are negative, non-pertinent or non-contributory Allergies Allergies Allergies Coded Allergies Type Severity Reaction Last Updated Verified Penicillins Allergy Intermediate 08/24/20 Yes Sulfa (Sulfonamide Antibiotics) Allergy Intermediate 08/24/20 Yes cyproheptadine Allergy Intermediate 08/24/20 Yes Physical Exam Physical Exam Constitutional: Well developed, well nourished, no acute distress, non-toxic appearance. HENT: Normocephalic, atraumatic, bilateral external ears normal, oropharynx moist, no oral exudates, nose normal. Eyes: PERRLA, EOMI, conjunctiva normal, no discharge. Neck: Normal range of motion, no tenderness, supple, no stridor. Cardiovascular: Heart rate regular, sinus rhythm, no murmurs rubs or gallops Lungs & Thorax: Bilateral breath sounds clear to auscultation Abdomen: Bowel sounds normal, soft, no tenderness, no masses, no pulsatile masses. Nonsurgical abdomen, no peritoneal signs Skin: Warm, dry, no erythema, no rash. Back: No tenderness, no CVA tenderness. Extremities: No tenderness, no cyanosis, no clubbing, ROM intact, no edema. Neurologic: Alert and oriented X 3, cranial nerves II through XII intact, normal motor & sensory function, no focal deficits noted. Psychologic: Anxious mood and affect Current Patient Data Vital Signs Vital Signs Date Time Temp Pulse Resp B/P (MAP) Pulse Ox O2 Delivery O2 Flow Rate FiO2 09/23/20 08:05 97.4 99 18 123/60 (81) 100 Lab Results Laboratory Tests Test 09/23/20 07:57 White Blood Count 10.4 x10^3/uL Red Blood Count 4.25 x10^6/uL Hemoglobin 13.4 g/dL Hematocrit 39.7 % Mean Corpuscular Volume 93 fL Mean Corpuscular Hemoglobin 32 pg Mean Corpuscular Hemoglobin Concent 34 g/dL Red Cell Distribution Width 14.6 % Platelet Count 195 x10^3/uL Neutrophils (%) (Auto) 68 % Lymphocytes (%) (Auto) 21 % Monocytes (%) (Auto) 9 % Eosinophils (%) (Auto) 1 % Basophils (%) (Auto) 1 % Neutrophils # (Auto) 7.1 x10^3uL Lymphocytes # (Auto) 2.2 x10^3/uL Monocytes # (Auto) 0.9 x10^3/uL Eosinophils # (Auto) 0.1 x10^3/uL Basophils # (Auto) 0.1 x10^3/uL Sodium Level 141 mmol/L Potassium Level 4.5 mmol/L Chloride Level 104 mmol/L Carbon Dioxide Level 30 mmol/L Anion Gap 7 Blood Urea Nitrogen 20 mg/dL Creatinine 0.8 mg/dL Estimated GFR (Cockcroft-Gault) 75.9 BUN/Creatinine Ratio 25 Glucose Level 113 mg/dL Calcium Level 9.4 mg/dL Total Bilirubin 0.3 mg/dL Aspartate Amino Transf (AST/SGOT) 29 U/L Alanine Aminotransferase (ALT/SGPT) 62 U/L Alkaline Phosphatase 201 U/L Troponin I Quantitative < 0.017 ng/mL Total Protein 7.6 g/dL Albumin 3.8 g/dL Albumin/Globulin Ratio 1.0 Lipase 175 U/L Current Medications Medications (Trade) Dose Ordered Sig/Christina Route PRN Reason Start Time Stop Time Status Last Admin Dose Admin Aspirin (Aspirin Chewable) 162 mg 1X ONCE PO 09/23/20 08:15 09/23/20 08:16 DC 09/23/20 08:13 Nitroglycerin (Nitrostat) 0.4 mg PRN Q5MIN PRN SL CP RATING > 09/2309/23/20 08:15 09/24/20 08:14 Aspirin (Aspirin Chewable) 81 mg STK-MED ONCE .ROUTE 09/23/20 08:13 09/23/20 08:13 DC Ondansetron HCl (Zofran) 4 mg 1X ONCE IVP 09/23/20 08:30 09/23/20 08:54 DC 09/23/20 08:30 Sodium Chloride 1,000 ml @ 1,000 mls/hr 1X ONCE IV 09/23/20 09:00 09/23/20 09:59 09/23/20 09:00 EKG EKG EKG ordered and interpreted by myself at 0803 hrs. as sinus rhythm at 99 bpm, OH 162 no otherwise unremarkable intervals, no axis deviation, no acute ischemic findings, no STEMI Radiology/Procedures Radiology/Procedures Chest AP portable 09/23/2020. Reason for exam: Pain. Comparison is made with a study of 08/24/2020. No infiltrate or effusion is seen. Heart size and pulmonary vascularity appear normal. There is no free air in the abdomen. IMPRESSION: No apparent acute abnormality. Electronically signed by: Richie Flores Jr., MD (09/23/2020 8:27 AM) [id number] Heart Score HEART Score for Chest Pain: HEART Score for Chest Pain Response (Comments) Value History Moderately Suspicious 1 ECG Normal 0 Age >45 - < 65 1 Risk Factors >3 Risk Factors or Hx CAD 2 Troponin < Normal Limit 0 Total 4 Risk Factors: Risk Factors: DM, Current or recent (<one month) smoker, HTN, HLP, family history of CAD, obesity. Risk Scores: Risk Factors: DM, Current or recent (<one month) smoker, HTN, HLP, family history of CAD, obesity. Course & Med Decision Making Course & Med Decision Making Pertinent Labs and Imaging studies reviewed. (See chart for details) Discussed no obvious emergent and/or surgical findings. With that said, ER intervention did not significantly improve patient's symptoms. Still having subjective dizziness, nausea has improved in addition to patient's chest pain. I discussed heart score of 4 and patient with concerning chest pain and si gnificant cardiac history.I disclosed that patient's anxiety might be contributory to her presenting complaints. With that said, patient still high risk and so, I contacted patient's primary care physician who will also service hospitalist, he accepted patient under his care for cardiac observation at [facility] I updated patient on proposed plan of care, she was amenable for plan of cardiac observation and continued intervention as indicated. All questions and concerns addressed prior to ER transportation to [facility] for admission Dragon Disclaimer Dragon Disclaimer This electronic medical record was generated, in whole or in part, using a voice recognition dictation system. Departure Departure: Impression: Primary Impression: Chest pain, rule out acute myocardial infarction Additional Impression: Anxiety about health Disposition: 09 ADMITTED INPT THIS HOSP Admitting Physician: Rico Arzate Condition: STABLE Referrals: RICO ARZATE MD (PCP) Problem Qualifiers ANAY MCMANUS DO Sep 23, 2020 08:03
--- NOTE | 2020-09-23 08:09 | EKG ---
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
[2020-09-23] MEDS ORDERED: ASPIRIN CHEWABLE 81 MG TABLET. ONE (08:13)
[2020-09-23] MEDS ORDERED: NITROGLYCERIN SUBLINGUAL 0.4 MG BOTTLE OF 25. SL PRN (08:15)
[2020-09-23] MEDS ORDERED: ASPIRIN CHEWABLE 81 MG TABLET. PO ONE (08:15)
[2020-09-23 08:24] LABS: BASO # 0.1 x10^3/uL (0.0-0.2); BASO % 1 % (0-3); CALCIUM 9.4 mg/dL (8.5-10.1); CREATININE 0.8 mg/dL (0.6-1.0); EOS # 0.1 x10^3/uL (0.0-0.7); EOS % 1 % (0-3); GFR 75.9; HEMATOCRIT 39.7 % (36.0-47.0); HEMOGLOBIN 13.4 g/dL (12.0-15.5); LYMPH # 2.2 x10^3/uL (1.0-4.8); LYMPH % 21 % (24-48); MEAN CORPUSCULAR HEMOGLOBIN 32 pg (25-35); MEAN CORPUSCULAR HGB CONC 34 g/dL (31-37); MEAN CORPUSCULAR VOLUME 93 fL (79-100); MONO # 0.9 x10^3/uL (0.0-1.1); MONO % 9 % (0-9); NEUT # 7.1 x10^3uL (1.8-7.7); NEUT % 68 % (31-73); PLATELET COUNT 195 x10^3/uL (140-400); POTASSIUM 4.5 mmol/L (3.5-5.1); RED BLOOD COUNT 4.25 x10^6/uL (3.50-5.40); RED CELL DISTRIBUTION WIDTH 14.6 % (11.5-14.5); WHITE BLOOD COUNT 10.4 x10^3/uL (4.0-11.0)
[2020-09-23 08:30] LABS: ALBUMIN 3.8 g/dL (3.4-5.0); TOTAL BILIRUBIN 0.3 mg/dL (0.2-1.0); TOTAL PROTEIN 7.6 g/dL (6.4-8.2)
[2020-09-23] MEDS ORDERED: ONDANSETRON PF 4 MG/2 ML VIAL. IVP ONE (08:30)
[2020-09-23] MEDS ORDERED: IV NORMAL SALINE 1,000ML 1,000 ML IV ONE (09:00)
--- NOTE | 2020-09-23 09:12 | RAD ---
Chest AP portable 09/23/2020. Reason for exam: Pain. Comparison is made with a study of 08/24/2020. No infiltrate or effusion is seen. Heart size and pulmonary vascularity appear normal. There is no fr ee air in the abdomen. IMPRESSION: No apparent acute abnormality. Electronically signed by: Richie Flores Jr., MD (09/23/2020 8:27 AM) [id number]
[2020-09-23] MEDS ORDERED: ONDANSETRON PF 4 MG/2 ML VIAL. IVP PRN (09:15)
[2020-09-23] MEDS ORDERED: ACETAMINOPHEN 325 MG TABLET PO PRN (09:15)
[2020-09-23 09:33] LABS: AMPHETAMINE/METHAMPHETAMINE NEG (NEG); BARBITURATES NEG (NEG); BENZODIAZEPINES NEG (NEG); CANNABINOIDS NEG (NEG); COCAINE NEG (NEG); METHADONE NEG (NEG); OPIATES NEG (NEG); PHENCYCLIDINE NEG (NEG)
[2020-09-23 09:37] LABS: BACTERIA,URINE 0 /HPF (0-FEW); BILIRUBIN,URINE NEG (NEG); CLARITY,URINE CLEAR; COLOR,URINE STRAW; GLUCOSE,URINE NEG (NEG); NITRITE,URINE NEG (NEG); RBC,URINE RARE /HPF (0-2); SQUAMOUS EPITHELIAL CELL,UR OCC /LPF; UROBILINOGEN,URINE 0.2 mg/dL (0.2 mg/dL); WBC,URINE 0 /HPF (0-4)
[2020-09-23] MEDS ORDERED: ZOLPIDEM 5 MG TABLET. PO PRN (11:00)
[2020-09-23] MEDS ORDERED: NICOTINE 21MG PATCH. TD PRN (11:00)
--- NOTE | 2020-09-23 11:18 | NUR ---
PATIENT ARRIVED TO UNIT VIA EMS. PATIENT IS STABLE AT TIME OF ADMISSION. PATIENT IS ORIENTED TO ROOM AND PROCEDURES. PT IS RESTING IN BED AT THIS TIME.
[2020-09-23 12:17] VITALS: BP 90/48
[2020-09-23] MEDS ORDERED: OLAN5TAB9 PO (12:40)
[2020-09-23] MEDS ORDERED: clonazePAM 1 MG TABLET PO PRN (12:45)
[2020-09-23 14:09] VITALS: BP 93/53
[2020-09-23] MEDS: NICOTINE 21MG PATCH. TD SCH (17:00)
[2020-09-23] MEDS: LORazepam 0.5 MG TABLET PO PRN (17:08)
[2020-09-23 19:35] VITALS: BP 85/54
[2020-09-23] MEDS: OLANZapine 2.5 MG TABLET PO SCH (19:58)
[2020-09-23 20:00] VITALS: BP 94/56
[2020-09-23] MEDS ORDERED: ATORVASTATIN CALCIUM 20 MG TABLET PO SCH (21:00)
[2020-09-23] MEDS ORDERED: METOPROLOL SUCC 24HR ER 25 MG TAB.ER.24H. PO SCH (21:00)
[2020-09-23 23:33] VITALS: BP 86/51
[2020-09-24 00:30] VITALS: BP 110/61
[2020-09-24] MEDS: LORazepam 0.5 MG TABLET PO PRN (05:38)
[2020-09-24 06:01] VITALS: BP 130/73
[2020-09-24] MEDS: OLANZapine 2.5 MG TABLET PO SCH (08:49)
[2020-09-24] MEDS: NICOTINE 21MG PATCH. TD SCH (08:50)
[2020-09-24] MEDS ORDERED: PANTOPRAZOLE 40 MG TABLET. PO SCH (09:00)
[2020-09-24] MEDS ORDERED: DULoxetine HCL 30 MG CAPSULE.DR PO SCH (09:00)
[2020-09-24] MEDS ORDERED: ASPIRIN CHEWABLE 81 MG TABLET. PO SCH (09:00)
[2020-09-24] MEDS ORDERED: CLON1TAB PO (10:11)
[2020-09-24] MEDS ORDERED: DOCU-109 PO (10:11)
[2020-09-24] MEDS ORDERED: MIRT-37 PO (10:11)
[2020-09-24] MEDS ORDERED: OLANZapine 5 MG TABLET PO SCH ×2 (10:30→21:00)
[2020-09-24] MEDS ORDERED: MIRTAZAPINE 7.5 MG TABLET. PO ONE (10:30)
[2020-09-24] MEDS ORDERED: OLANZapine 2.5 MG TABLET PO ONE (10:30)
[2020-09-24 10:42] VITALS: BP 129/65
[2020-09-24 15:18] VITALS: BP 128/69
--- NOTE | 2020-09-24 16:56 | NUR ---
NSG NOTE; DISCHARGE VERBAL AND WRITTEN DISCHARGE INSTRUCTIONS GIVEN TO PT WITH VERBAL UNDERSTANDING DISCHARGED TO HOME AT 1648 VIA W/C ACCOMP BY WHO PICKED HER UP
[2020-09-24] MEDS ORDERED: MIRTAZAPINE 15 MG TABLET PO SCH (21:00)
== END 2020-09-24 16:48 | disposition home or self-care (01) | DRG 313 ==
LOC: ER 07:51 → OBSVTOIN 09:11 → 1 SOUTH 09:11
PROVIDERS: ADMIT Family Medicine; ATTEND Family Medicine
DX: R07.89 Other chest pain (principal); I25.10 Atherosclerotic heart disease of native coronary artery without angina pectoris; E78.00 Pure hypercholesterolemia, unspecified; F41.0 Panic disorder [episodic paroxysmal anxiety]; Z95.5 Presence of coronary angioplasty implant and graft; I10 Essential (primary) hypertension; F32.9 Major depressive disorder, single episode, unspecified; Z90.49 Acquired absence of other specified parts of digestive tract; I25.2 Old myocardial infarction; F17.210 Nicotine dependence, cigarettes, uncomplicated; Z88.0 Allergy status to penicillin; Z88.2 Allergy status to sulfonamides; Z88.8 Allergy status to other drugs, medicaments and biological substances
CPT/HCPCS: 36415; 71045; 80053; 80307; 81001; 83690; 84484; 85025; 93005; 96374; J2405; 99285-25; J7030

== ENCOUNTER 2020-10-06 10:54 | Inpatient (IN) | payer SELFPAY ==
[~2020-10-06] VITALS: Ht 167.6 cm; Wt 62.7 kg
[~2020-10-06 10:54] MED LIST changes: +CLON1TAB PO; +DOCU-109 PO; +MIRT-37 PO; +OLAN5TAB9 PO
[2020-10-06 11:39] LABS: BASO % 1 % (0-3); EOS # 0.1 x10^3/uL (0.0-0.7); EOS % 1 % (0-3); HEMATOCRIT 41.7 % (36.0-47.0); HEMOGLOBIN 14.1 g/dL (12.0-15.5); LYMPH # 1.8 x10^3/uL (1.0-4.8); LYMPH % 25 % (24-48); MEAN CORPUSCULAR HEMOGLOBIN 32 pg (25-35); MEAN CORPUSCULAR HGB CONC 34 g/dL (31-37); MEAN CORPUSCULAR VOLUME 93 fL (79-100); MONO # 0.5 x10^3/uL (0.0-1.1); MONO % 7 % (0-9); NEUT # 4.8 x10^3uL (1.8-7.7); NEUT % 66 % (31-73); PLATELET COUNT 189 x10^3/uL (140-400); RED BLOOD COUNT 4.48 x10^6/uL (3.50-5.40); RED CELL DISTRIBUTION WIDTH 14.4 % (11.5-14.5); WHITE BLOOD COUNT 7.3 x10^3/uL (4.0-11.0)
[2020-10-06] MEDS ORDERED: IV NORMAL SALINE 1,000ML 1,000 ML IV ONE (11:45)
[2020-10-06] MEDS ORDERED: ASPIRIN CHEWABLE 81 MG TABLET. PO ONE (11:45)
[2020-10-06] MEDS ORDERED: NITROGLYCERIN SUBLINGUAL 0.4 MG BOTTLE OF 25. SL PRN ×2 (11:45→13:15)
[2020-10-06 11:53] LABS: ALBUMIN/GLOBULIN RATIO 1.2 (1.0-1.7); ALK PHOS 164 U/L (46-116); ALT (SGPT) 43 U/L (14-59); AST (SGOT) 24 U/L (15-37); BLOOD UREA NITROGEN 26 mg/dL (7-20); BUN/CREATININE RATIO 26 (6-20); CARBON DIOXIDE 27 mmol/L (21-32); GFR 58.7; GLUCOSE 95 mg/dL (70-99); MAGNESIUM 1.8 mg/dL (1.8-2.4); TOTAL BILIRUBIN 0.5 mg/dL (0.2-1.0); TOTAL PROTEIN 7.4 g/dL (6.4-8.2)
--- NOTE | 2020-10-06 11:57 | RAD ---
Exam performed: CT scan of the head and cervical spine without contrast. Date of Service: 10/06/2020 Comparison:None available Clinical History: Syncope and collapse Technique: Helical acquisitions are obtained from the foramen magnum to the vertex without intravenou s administration of contrast. In addition helical acquisitions are obtained through the cervical spin e. Sagittal and coronal reformatted images are obtained and reviewed. CT scan head findings: The ventricular system is midline without evidence of dilatation. Normal mcallister-white differentiation is maintained. There is no extra axial fluid collection, intraparenchymal hemorrhage or mass lesion . The visualized orbits, paranasal sinuses and the mastoid air cells are clear. The calvarium is in tact. Impression: 1. Normal non-contrast CT of the brain. End Impression. CT cervical spine findings: Straightening of the cervical spine likely positional. The vertebral body heights and intravertebral disc spaces are maintained. There is no juan or retrolisthesis. No prevertebral soft tissue swell ing is identified. There are no fractures. No definite lymphadenopathy or masses are seen within th e neck. The visualized thyroid and salivary glands appears preserved. Impression: 1. No acute abnormality seen in the CT scan cervical spine. PQRS Compliance Statement: One or more of the following individualized dose reduction techniques were utilized for this examinat ion: 1. Automated exposure control 2. Adjustment of the mA and/or kV according to patient size 3. Use of iterative reconstruction technique Electronically signed by: Lara Jensen MD (10/06/2020 11:55 AM) [id number]
[2020-10-06 12:31] LABS: BACTERIA,URINE FEW /HPF (0-FEW); BILIRUBIN,URINE NEG (NEG); CLARITY,URINE HAZY; COLOR,URINE YELLOW; GLUCOSE,URINE NEG (NEG); NITRITE,URINE NEG (NEG); UROBILINOGEN,URINE 0.2 mg/dL (0.2 mg/dL)
[2020-10-06 12:32] LABS: SQUAMOUS EPITHELIAL CELL,UR MOD /LPF
[2020-10-06] MEDS ORDERED: ONDANSETRON PF 4 MG/2 ML VIAL. IVP ONE (12:45)
[2020-10-06] MEDS ORDERED: MORPHINE SULFATE 2 MG/ML DISP.SYRIN. IVP PRN (13:15)
[2020-10-06] MEDS ORDERED: ONDANSETRON PF 4 MG/2 ML VIAL. IVP PRN (13:15)
--- NOTE | 2020-10-06 13:24 | PHYS DOC ---
Past History Past Medical History: Anxiety, Depression, High Cholesterol, Hypertension, OK Additional Past Medical Histor: panic attacks Past Surgical History: Cholecystectomy, Other Additional Past Surgical Histo: CARDIAC STENT 2017, BILE DUCT Smoking: Less than 1pk/day Alcohol Use: None General Adult EDM: Chief Complaint: SYNCOPE HPI: HPI: Patient is a 49-year-old female coming in after syncopal episode. She was waiting at the doctor's office for her daughter's appointment and standing in line to check in and states she does not remember passing out. Initially via by EMS and bystanders that she had class but did not hit her head. She is complaining of left-sided neck pain denies any head pain. Denies any photophobia, tinnitus, hearing loss or vision changes. Has generalized headache . Patient initially says she not have any chest pain or shortness of breath but states she developed 5 out of 10 chest pain that is both dull and sharp in her midsternal chest that radiates to her left shoulder. States she does not have a history of syncope prior to this and denies any presyncopal symptoms. Patient states she had eaten her breakfast this morning as she normally does. Denies any diuretic use has had normal p.o. intake. Denies any lower extremity edema, changes in urination. Has some nausea but did not have any nausea prior has not vomited. Denies any bloody or tarry stools. Has a history of an OK in 2017 with 1 LAD stent, was on anticoagulants for 1 year is not taking any now. States his pain is a little bit like her prior OK pain but not as severe. Pain not relieved with nitro Review of Systems: Review of Systems: All other systems within normal limits except for as noted in the HPI Current Medications: Current Meds: Current Medications Medications (Trade) Dose Ordered Sig/Christina Start Time Stop Time Status Last Admin Dose Admin Acetaminophen (Tylenol) 650 mg PRN Q4HRS PRN 10/06/20 13:15 10/07/20 13:14 Aspirin (Aspirin Chewable) 324 mg 1X ONCE 10/06/20 11:45 10/06/20 11:46 DC 10/06/20 11:53 324 MG Morphine Sulfate (Morphine 2mg Syringe) 2 mg PRN Q2HR PRN 10/06/20 13:15 10/07/20 13:14 Nitroglycerin (Nitrostat) 0.4 mg PRN Q5MIN PRN 10/06/20 13:15 10/07/20 13:14 UNV Ondansetron HCl (Zofran) 4 mg PRN Q4HRS PRN 10/06/20 13:15 10/07/20 13:14 Sodium Chloride 1,000 ml @ 1,000 mls/hr 1X ONCE 10/06/20 11:45 10/06/20 12:44 DC 10/06/20 11:54 1,000 MLS/HR Allergies: Allergies: Allergies Coded Allergies Type Severity Reaction Last Updated Verified Penicillins Allergy Intermediate 08/24/20 Yes Sulfa (Sulfonamide Antibiotics) Allergy Intermediate 08/24/20 Yes cyproheptadine Allergy Intermediate 08/24/20 Yes Physical Exam: PE: Constitutional: Well developed, well nourished, no acute distress, non-toxic appearance. [] HENT: Normocephalic, atraumatic, bilateral external ears normal, nose normal. [] Eyes: PERRLA, conjunctiva normal, no discharge. [] Neck: No rigidity, supple, no stridor., Tenderness to left upper neck, no C- spine tenderness step-off or deformity [] Cardiovascular: Regular rate and rhythm, brisk cap refill, symmetric radial pulses [] Lungs & Thorax: Non labored symmetric respirations, no tachypnea or respiratory distress. Lungs clear to auscultation bilaterally. No chest wall tenderness [] Abdomen: Soft, nondistended, nontender. Skin: Warm, dry, no erythema, no rash, no pallor. [] Back: Unremarkable Extremities: No deformities, range of motion grossly intact, no lower extremity edema [] Neurologic: Alert and oriented X 3, no focal deficits noted. [] Psychologic: Affect normal, judgement normal, mood normal. [] Current Patient Data: Labs: Laboratory Tests Test 10/06/20 11:10 10/06/20 11:20 10/06/20 11:50 White Blood Count 7.3 x10^3/uL (4.0-11.0) Red Blood Count 4.48 x10^6/uL (3.50-5.40) Hemoglobin 14.1 g/dL (12.0-15.5) Hematocrit 41.7 % (36.0-47.0) Mean Corpuscular Volume 93 fL (79-100) Mean Corpuscular Hemoglobin 32 pg (25-35) Mean Corpuscular Hemoglobin Concent 34 g/dL (31-37) Red Cell Distribution Width 14.4 % (11.5-14.5) Platelet Count 189 x10^3/uL (140-400) Neutrophils (%) (Auto) 66 % (31-73) Lymphocytes (%) (Auto) 25 % (24-48) Monocytes (%) (Auto) 7 % (0-9) Eosinophils (%) (Auto) 1 % (0-3) Basophils (%) (Auto) 1 % (0-3) Neutrophils # (Auto) 4.8 x10^3uL (1.8-7.7) Lymphocytes # (Auto) 1.8 x10^3/uL (1.0-4.8) Monocytes # (Auto) 0.5 x10^3/uL (0.0-1.1) Eosinophils # (Auto) 0.1 x10^3/uL (0.0-0.7) Basophils # (Auto) 0.0 x10^3/uL (0.0-0.2) Prothrombin Time 10.2 SEC (9.4-11.4) Prothrombin Time INR 1.0 (0.9-1.1) D-Dimer (Yadira) < 0.19 mg/L (0.00-0.50) Sodium Level mmol/L (136-145) Potassium Level mmol/L (3.5-5.1) Chloride Level mmol/L (98-107) Carbon Dioxide Level 27 mmol/L (21-32) Anion Gap (6-14) Blood Urea Nitrogen 26 mg/dL (7-20) H Creatinine 1.0 mg/dL (0.6-1.0) Estimated GFR (Cockcroft-Gault) 58.7 BUN/Creatinine Ratio 26 (6-20) H Glucose Level 95 mg/dL (70-99) Calcium Level 10.0 mg/dL (8.5-10.1) Magnesium Level 1.8 mg/dL (1.8-2.4) Total Bilirubin 0.5 mg/dL (0.2-1.0) Aspartate Amino Transferase (AST) 24 U/L (15-37) Alanine Aminotransferase (ALT) 43 U/L (14-59) Alkaline Phosphatase 164 U/L (46-116) H Troponin I Quantitative < 0.017 ng/mL (0-0.055) MP-Xsr-C-Type Natriuretic Peptide 96 pg/mL (0-124) Total Protein 7.4 g/dL (6.4-8.2) Albumin 4.0 g/dL (3.4-5.0) Albumin/Globulin Ratio 1.2 (1.0-1.7) Lactic Acid Level 1.7 mmol/L (0.4-2.0) Urine Collection Type Unknown Urine Color Yellow Urine Clarity Hazy Urine pH 5.5 Urine Specific [place] <=1.005 Urine Protein Neg (NEG-TRACE) Urine Glucose (UA) Neg mg/dL (NEG) Urine Ketones (Stick) Neg mg/dL (NEG) Urine Blood Trace (NEG) Urine Nitrite Neg (NEG) Urine Bilirubin Neg (NEG) Urine Urobilinogen Dipstick 0.2 mg/dL (0.2 mg/dL) Urine Leukocyte Esterase Small (NEG) Urine RBC 1-2 /HPF (0-2) Urine WBC 1-4 /HPF (0-4) Urine Squamous Epithelial Cells Mod /LPF Urine Bacteria Few /HPF (0-FEW) Vital Signs: Vital Signs Date Time Temp Pulse Resp B/P (MAP) Pulse Ox O2 Delivery O2 Flow Rate FiO2 10/06/20 11:56 72 131/77 10/06/20 11:28 20 100 Room Air 10/06/20 11:10 97.7 EKG: EKG: Normal sinus rhythm, heart rate 70 beats minute, normal axis, no ST elevation or depression, to inversion aVL and V2. No ectopy, mildly pointed T waves in inferior and lateral leads [] Radiology/Procedures: Radiology/Procedures: Exam performed: CT scan of the head and cervical spine without contrast. Date of Service: 10/06/2020 Comparison:None available Clinical History: Syncope and collapse Technique: Helical acquisitions are obtained from the foramen magnum to the vertex without intravenous administration of contrast. In addition helical acquisitions are obtained through the cervical spine. Sagittal and coronal reformatted images are obtained and reviewed. CT scan head findings: The ventricular system is midline without evidence of dilatation. Normal mcallister- white differentiation is maintained. There is no extra axial fluid collection, intraparenchymal hemorrhage or mass lesion. The visualized orbits, paranasal sinuses and the mastoid air cells are clear. The calvarium is intact. Impression: 1. Normal non-contrast CT of the brain. End Impression. CT cervical spine findings: Straightening of the cervical spine likely positional. The vertebral body heights and intravertebral disc spaces are maintained. There is no juan or retrolisthesis. No prevertebral soft tissue swelling is identified. There are no fractures. No definite lymphadenopathy or masses are seen within the neck. The visualized thyroid and salivary glands appears preserved. Impression: 1. No acute abnormality seen in the CT scan cervical spine. [] Heart Score: HEART Score for Chest Pain: HEART Score for Chest Pain Response (Comments) Value History Moderately Suspicious 1 ECG Nonspecific Repolarizatio 1 Age >45 - < 65 1 Risk Factors >3 Risk Factors or Hx CAD 2 Troponin < Normal Limit 0 Total 5 Risk Factors: Risk Factors: DM, Current or recent (<one month) smoker, HTN, HLP, family history of CAD, obesity. Risk Scores: Score 0 - 3: 2.5% MACE over next 6 weeks - Discharge Home Score 4 - 6: 20.3% MACE over next 6 weeks - Admit for Clinical Observation Score 7 - 10: 72.7% MACE over next 6 weeks - Early Invasive Strategies Course & Med Decision Making: Course & Med Decision Making Pertinent Labs and Imaging studies reviewed. (See chart for details) Heart score 5, will admit for observation for chest pain rule out and syncope. [] Dragon Disclaimer: Dragon Disclaimer: This electronic medical record was generated, in whole or in part, using a voice recognition dictation system. Departure Departure: Impression: Primary Impression: Chest pain Additional Impression: Syncope and collapse Disposition: ADMITTED INPT THIS HOSP Admitting Physician: Rico Sommer Condition: STABLE Referrals: RICO SOMMER MD (PCP) JONATHAN IBARRA MD Oct 06, 2020 13:24
[2020-10-06 13:33] LABS: POTASSIUM ISTAT 4.9 mmol/L (3.5-5.0)
[2020-10-06 13:34] LABS: HEMOGLOBIN ISTAT 12.2 gm/dL
[2020-10-06 14:45] VITALS: BP 105/54
--- NOTE | 2020-10-06 14:45 | NUR ---
The patient, AMANUEL RUFF I, 49 y/o, F admitted by RICO ARZATE MD, was given written information regarding hospital policies, unit procedures and contact persons. Valuables were checked and VS taken, please see chart.
[2020-10-06] MEDS: ACETAMINOPHEN 325 MG TABLET PO PRN ×2 (14:52→21:55)
--- NOTE | 2020-10-06 17:18 | PDOC2 ---
CONSULT DOS: DATE: 10/06/20 TIME: 17:10 Reason for Consult: Passing out, chest pain Referring Physician: Dr. Mclaughlin Chief Complaint Passing out Source: Chart review, Patient Problem List Problems Medical Problems: (1) Chest pain Status: Acute (2) Syncope and collapse Status: Acute History of Present Illness The patient is a 49-year-old female who was admitted through the emergency room after an episode of loss of consciousness while standing in a line. While in an ambulance on the way to the hospital she reports developing chest pressure. She was evaluated by the emergency room. EKG showed a sinus rhythm with no acute ST segment changes but some mild nonspecific T wave changes. Initial troponin was normal at less than 0.017. D-dimer was normal at less than 0.19. CT head scan was normal. CT scan of the C-spine showed no acute changes. Patient has a history of a myocardial infarction in 2016. A CTA of the chest on 08/24/2020 showed a normal thoracic aorta with no pulmonary masses. A CT scan of the abdomen pelvis in July 2020 was normal. The patient was seen by our service for a consult on August 23, 2020. She had ruled out for myocardial infarction. She was seen for atypical chest pain and continued on pantoprazole. She states that she follows at [facility] and had a normal Lexiscan stress test last year. She has a follow up appointment in December. Cardiovascular: CAD, HTN, IA, hyperipidemia Psych: Anxiety Past Surgical History: Cholecystectomy, Other (Coronary stent in 2016) Family History: Hypertension Smoke: 1 pack per day ALCOHOL: none Current Medications Current Medications Aspirin (Aspirin Chewable) 324 mg 1X ONCE PO Last administered on 10/06/20at 11:53; Start 10/06/20 at 11:45; Stop 10/06/20 at 11:46; Status DC Nitroglycerin (Nitrostat) 0.4 mg PRN Q5MIN PRN SL CHEST PAIN Last administered on 10/06/20at 11:56; Start 10/06/20 at 11:45 Sodium Chloride 1,000 ml @ 1,000 mls/hr 1X ONCE IV Last administered on 10/06at 11:54; Start 10/06/20 at 11:45; Stop 10/06/20 at 12:44; Status DC Ondansetron HCl (Zofran) 4 mg 1X ONCE IVP Last administered on 10/06/20at 12:55; Start 10/06/20 at 12:45; Stop 10/06/20 at 12:46; Status DC Ondansetron HCl (Zofran) 4 mg PRN Q4HRS PRN IVP NAUSEA/VOMITING; Start 10/06/20 at 13:15; Stop 10/07/20 at 13:14 Morphine Sulfate (Morphine 2mg Syringe) 2 mg PRN Q2HR PRN IVP PAIN; Start 10/06/20 at 13:15; Stop 10/07/20 at 13:14 Acetaminophen (Tylenol) 650 mg PRN Q4HRS PRN PO FEVER > 100.3'F Last administered on 10/06/20at 14:52; Start 10/06/20 at 13:15; Stop 10/07/20 at 13:14 Nitroglycerin (Nitrostat) 0.4 mg PRN Q5MIN PRN SL CHEST PAIN; Start 10/06/20 at 13:15; Stop 10/07/20 at 13:14; Status UNV Fentanyl Citrate (Fentanyl 2ml Vial) 25 mcg 1X ONCE IVP Last administered on 10/06/20at 13:28; Start 10/06/20 at 13:30; Stop 10/06/20 at 13:31; Status DC Aspirin (Aspirin Chewable) 81 mg DAILY PO ; Start 10/07/20 at 09:00 Clonazepam (KlonoPIN) 1 mg PRN BID PRN PO ANXIETY; Start 10/06/20 at 16:00 Mirtazapine (Remeron) 15 mg QHS PO ; Start 10/06/20 at 21:00 Nicotine (Nicoderm Cq 21mg Patch) 1 patch DAILY PRN TD SMOKING CESSATION; Start 10/07/20 at 09:00 Olanzapine (ZyPREXA) 5 mg BID PO ; Start 10/06/20 at 21:00 Pantoprazole Sodium (Protonix) 40 mg DAILYAC PO ; Start 10/07/20 at 07:30 Atorvastatin Calcium (Lipitor) 80 mg QHS PO ; Start 10/06/20 at 21:00 Acetaminophen/ Butalbital/ Caffeine (Fioricet) 1 tab PRN Q6HRS PRN PO MIGRAINE HEADACHE; Start 10/06/20 at 17:15; Status UNV Active Scripts Active Reported Remeron (Mirtazapine) 15 Mg Tablet 1 Tab PO QHS LAST DOSE GIVEN: DATE: TODAY TIME: AM NEXT DOSE DUE: DATE: TODAY TIME: PM Klonopin (Clonazepam) 1 Mg Tablet 1 Tab PO BID PRN LAST DOSE GIVEN: DATE: TIME: AM NEXT DOSE DUE: DATE: TODAY TIME: PM Olanzapine 5 Mg Tablet 5 Mg PO BID LAST DOSE GIVEN: DATE: TIME: AM NEXT DOSE DUE: DATE: TODAY TIME: PM NICODERM CQ 21mg (Nicotine) 1 Each Patch.td24 1 Patch TD DAILY PRN LAST DOSE GIVEN: DATE: TODAY TIME: AM NEXT DOSE DUE: DATE: TOMORROW TIME: AM Atorvastatin Calcium 80 Mg Tablet 80 Mg PO QHS NEXT DOSE DUE: DATE: TIME: AT BEDTIME Aspirin 81 Mg Tab.chew 81 Mg PO DAILY LAST DOSE GIVEN: DATE: TIME: AM NEXT DOSE DUE: DATE: TOMORR TIME: AM Pantoprazole Sodium 40 Mg Tablet.dr 40 Mg PO DAILY LAST DOSE GIVEN: DATE: TIME: AM NEXT DOSE DUE: DATE: TOMORROW TIME: AM Allergies: Coded Allergies: Penicillins (Verified Allergy, Intermediate, 08/24/20) Sulfa (Sulfonamide Antibiotics) (Verified Allergy, Intermediate, 08/24/20) cyproheptadine (Verified Allergy, Intermediate, 08/24/20) caused her HR and her BP to go up Cardiovascular: yes: Chest Pain, Other (Syncope) General: No acute distress HEENT: Atraumatic Lungs: Clear to auscultation Heart: Regular rate Abdomen: Normal bowel sounds VITALS Vital Signs Date Time Temp Pulse Resp B/P (MAP) Pulse Ox O2 Delivery O2 Flow Rate FiO2 10/06/20 15:03 Room Air 10/06/20 14:45 97.6 66 18 105/54 (71) 99 Labs Laboratory Tests Test 10/06/20 11:10 10/06/20 11:20 10/06/20 11:50 10/06/20 12:50 White Blood Count 7.3 x10^3/uL (4.0-11.0) Red Blood Count 4.48 x10^6/uL (3.50-5.40) Hemoglobin 14.1 g/dL (12.0-15.5) Hematocrit 41.7 % (36.0-47.0) Mean Corpuscular Volume 93 fL (79-100) Mean Corpuscular Hemoglobin 32 pg (25-35) Mean Corpuscular Hemoglobin Concent 34 g/dL (31-37) Red Cell Distribution Width 14.4 % (11.5-14.5) Platelet Count 189 x10^3/uL (140-400) Neutrophils (%) (Auto) 66 % (31-73) Lymphocytes (%) (Auto) 25 % (24-48) Monocytes (%) (Auto) 7 % (0-9) Eosinophils (%) (Auto) 1 % (0-3) Basophils (%) (Auto) 1 % (0-3) Neutrophils # (Auto) 4.8 x10^3uL (1.8-7.7) Lymphocytes # (Auto) 1.8 x10^3/uL (1.0-4.8) Monocytes # (Auto) 0.5 x10^3/uL (0.0-1.1) Eosinophils # (Auto) 0.1 x10^3/uL (0.0-0.7) Basophils # (Auto) 0.0 x10^3/uL (0.0-0.2) Prothrombin Time 10.2 SEC (9.4-11.4) Prothromb Time International Ratio 1.0 (0.9-1.1) D-Dimer (Yadira) < 0.19 mg/L (0.00-0.50) Sodium Level mmol/L (136-145) Potassium Level mmol/L (3.5-5.1) Chloride Level mmol/L (98-107) Carbon Dioxide Level 27 mmol/L (21-32) Anion Gap (6-14) 15 mmol/L (6-14) Blood Urea Nitrogen 26 mg/dL (7-20) Creatinine 1.0 mg/dL (0.6-1.0) Estimated GFR (Cockcroft-Gault) 58.7 BUN/Creatinine Ratio 26 (6-20) Glucose Level 95 mg/dL (70-99) 84 mg/dL (60-99) Calcium Level 10.0 mg/dL (8.5-10.1) Magnesium Level 1.8 mg/dL (1.8-2.4) Total Bilirubin 0.5 mg/dL (0.2-1.0) Aspartate Amino Transf (AST/SGOT) 24 U/L (15-37) Alanine Aminotransferase (ALT/SGPT) 43 U/L (14-59) Alkaline Phosphatase 164 U/L (46-116) Troponin I Quantitative < 0.017 ng/mL (0-0.055) WY-Lmb-G-Type Natriuretic Peptide 96 pg/mL (0-124) Total Protein 7.4 g/dL (6.4-8.2) Albumin 4.0 g/dL (3.4-5.0) Albumin/Globulin Ratio 1.2 (1.0-1.7) Lactic Acid Level 1.7 mmol/L (0.4-2.0) Urine Collection Type Unknown Urine Color Yellow Urine Clarity Hazy Urine pH 5.5 Urine Specific [place] <=1.005 Urine Protein Neg (NEG-TRACE) Urine Glucose (UA) Neg mg/dL (NEG) Urine Ketones (Stick) Neg mg/dL (NEG) Urine Blood Trace (NEG) Urine Nitrite Neg (NEG) Urine Bilirubin Neg (NEG) Urine Urobilinogen Dipstick 0.2 mg/dL (0.2 mg/dL) Urine Leukocyte Esterase Small (NEG) Urine RBC 1-2 /HPF (0-2) Urine WBC 1-4 /HPF (0-4) Urine Squamous Epithelial Cells Mod /LPF Urine Bacteria Few /HPF (0-FEW) Bedside Hemoglobin 12.2 gm/dL Bedside Hematocrit 36 % Bedside Sodium 142 mmol/L (135-145) Bedside Potassium 4.9 mmol/L (3.5-5.0) Bedside Chloride 107 mmol/L (98-110) Bedside Total CO2 26 mmol/L (23-32) Bedside Blood Urea Nitrogen 25 mg/dL (8-26) Bedside Creatinine 0.8 mg/dL (0.5-1.4) Bedside Ionized Calcium (Veronica) 1.26 mmol/L (1.13-1.32) Images CT scan of the head showed no acute abnormalities. CT scan of the C-spine showed no acute abnormalities Assessment/Plan 1. Syncopal episode. This occurred while standing waiting in a line. EKG shows no acute ischemic changes. Monitor shows a sinus rhythm. No significant lab abnormalities are present. CT scan of the head and CT scan of the C-spine showed no acute changes. We will continue present treatment and monitor o vernight. 2. Episodes of chest pain. No acute EKG changes. Initial normal troponin and D-dimer. History of coronary artery disease as noted above with a consult by our service in August of last year. Would rule out for myocardial infarction. Continue baseline medications. Patient follows routinely through [facility] with a normal stress test last year. 3. Hypertension. Will monitor blood pressure continue present treatments. 4. Hyperlipidemia. We will continue present treatments. Check morning lab. Thank you for allowing us to participate in the care of your patient. TAYLER WANG MD Oct 06, 2020 17:18
[2020-10-06] MEDS: BUTALB/APAP/CAFEIN 50/325/40MG TABLET. PO PRN (17:21)
[2020-10-06] MEDS: clonazePAM 1 MG TABLET PO PRN (17:24)
[2020-10-06 19:10] VITALS: BP 99/61
[2020-10-06] MEDS: OLANZapine 5 MG TABLET PO SCH (21:55)
[2020-10-06] MEDS: MIRTAZAPINE 15 MG TABLET PO SCH (21:55)
[2020-10-06] MEDS: ATORVASTATIN CALCIUM 20 MG TABLET PO SCH (21:55)
[2020-10-06 23:31] VITALS: BP 106/69
[2020-10-07] MEDS: clonazePAM 1 MG TABLET PO PRN ×2 (06:41→15:18)
[2020-10-07 06:42] VITALS: BP 96/59
[2020-10-07] MEDS ORDERED: NICOTINE 21MG PATCH. TD PRN (09:00)
[2020-10-07] MEDS: BUTALB/APAP/CAFEIN 50/325/40MG TABLET. PO PRN ×2 (10:11→20:01)
[2020-10-07] MEDS: OLANZapine 5 MG TABLET PO SCH ×2 (10:12→20:02)
[2020-10-07] MEDS: PANTOPRAZOLE 40 MG TABLET. PO SCH (10:12)
[2020-10-07] MEDS: ASPIRIN CHEWABLE 81 MG TABLET. PO SCH (10:12)
[2020-10-07] MEDS: CITALOPRAM 20 MG TABLET. PO SCH (10:14)
[2020-10-07 11:13] VITALS: BP 109/73
[2020-10-07] MEDS ORDERED: ONDANSETRON PF 4 MG/2 ML VIAL. IVP PRN (15:00)
[2020-10-07 16:13] VITALS: BP 118/73
[2020-10-07] MEDS ORDERED: AZITHROMYCIN 250 MG TABLET. PO ONE (18:30)
--- NOTE | 2020-10-07 18:33 | HP ---
ADMIT DATE: 10/06/2020 HISTORY OF PRESENT ILLNESS: A 49-year-old female who came in, apparently with some syncopal episode, was waiting in the doctor's office for her daughter's appointment, __. Patient does not remember passing out via EMS. The patient did not have any seizure activity. She did not hit her head directly, but did complain of left sided neck pain and head pain as well as chest pain that was intermittent, has had a history of a myocardial infarction 3 years ago. She does have a stent in her LAD. She has had anticoagulation for a year. She states her pain is like her prior MT over her chest and then into her left shoulder. However, complicating the issue, the patient says she has suicidal ideation and she does have a plan of overdosing on pills when she goes home. Otherwise, the patient has a very depressed affect and is appearing suicidal 1:1 watch noted on her and psych consult as well as Cardiology consult initiated. PAST MEDICAL HISTORY: She has had history of severe depression and suicidal ideation before, heart attack, cardiac stent placement, hypercholesterolemia, hypertension, cholecystectomy, GERD, panic disorders, and anxiety. FAMILY HISTORY: Not recorded. ALLERGIES: PENICILLIN, SULFA AND CYPROHEPTADINE. SOCIAL HISTORY: The patient has about a [id number] history of smoking, is trying to quit now. Denies alcohol, hard drug use. Full code. REVIEW OF SYSTEMS: Outside of her chest pain, which she does not have at the present time. Denies any nausea or vomiting. Denies shortness of breath. Denies any melena, hematochezia, hematemesis and neurologically as noted stable except for her depressed affected and her speech is extremely soft spoken and very difficult to hear because she almost talks in a whisper and has a very low voice due to her I believe to her depression. PHYSICAL EXAMINATION: GENERAL: This is a pleasant white female looking older than stated age, very frail appearing. VITAL SIGNS: Blood pressure 118/73, respiratory rate 18, pulse 88, and temperature 99.7. HEENT: The patient's head was atraumatic, normocephalic. Eyes: PERRLA without jaundice. Mouth and throat: Poor dentition. NECK: Supple, no JVD or thyromegaly. LUNGS: Diminished throughout, poor movement of air. CARDIOVASCULAR: Regular sinus rhythm, S1, S2. ABDOMEN: Soft, nontender, no rebound or guarding. Positive bowel sounds. EXTREMITIES: No clubbing, cyanosis, nor edema. NEUROLOGIC: The patient was alert and oriented. Speech is fluent, spontaneous, appropriate, very faint volume. The patient had trouble enunciating and the patient as noted, she has a plan for her suicide attempt. She is just depressed. She has suicidal ideation and wants to kill herself for a variety of reasons. Apparently, she has been hospitalized at [facility] in the past for this. In any case, the patient was admitted. IMPRESSION: Chest pain, rule out myocardial infarction, history of coronary artery disease, atherosclerosis, history of depression with suicidal ideation, tobacco abuse. PLAN: The patient continued to be monitored carefully, make further evaluation on her as indicated per those results. RICO ARZATE MD DR: ORACIO/elmira JOB#: [id number] / [id number]
[2020-10-07 19:25] VITALS: BP 104/64
[2020-10-07] MEDS: ATORVASTATIN CALCIUM 20 MG TABLET PO SCH (20:01)
[2020-10-07] MEDS: MIRTAZAPINE 15 MG TABLET PO SCH (20:01)
--- NOTE | 2020-10-08 05:45 | NUR ---
Pt A&Ox4, anxious & tearful at times. Pt Pt has 1to1 sitter present for feelings of SI that she states she "still feeling likes doing...just better off gone." However pt was not able to verbalized a plan. Pt asked if her Luis knew why she was here and became tearful. Pt talked with staff for about 20 mins, expressing her frustration with her health, her /family and the pandemic/lack of work. Pt felt somewhat better atfer conversation and thanked staff for taking the time to talk with her. Pt ate large HS snack and took medications without difficulty. Pt c/o headache, PRN Fioricet given. Pt slept great during night, woke up with headache and feeling anxious again, PRN medications given per request. Pt refused shower this AM.
[2020-10-08 06:00] VITALS: BP 109/69
[2020-10-08] MEDS: clonazePAM 1 MG TABLET PO PRN (06:19)
[2020-10-08] MEDS: BUTALB/APAP/CAFEIN 50/325/40MG TABLET. PO PRN (06:19)
[2020-10-08] MEDS: PANTOPRAZOLE 40 MG TABLET. PO SCH (07:23)
--- NOTE | 2020-10-08 07:32 | NUR ---
Pt did report to this RN that she is still feeling suicidal and her plan would be to "take a whole bunch of pain killers". She states she does have access to these medications at home.She is willing to get psychiatric help instead of going home. Pt affect is flat and she is tearful upon speaking with RN. Pt is on 1:1, awaiting medical clearance from Dr. Sommer in order for Psychiatric evaluation to take place. Will continue to monitor.
--- NOTE | 2020-10-08 07:53 | PDOC ---
CARDIO Progress Notes Date & Time Date of Service DATE: 10/08/20 TIME: 07:49 Time of Evaluation 07:49 Subjective Notes No chest pain, palpitations, dizziness, diaphoresis, or syncope Vitals Vitals Vital Signs Date Time Temp Pulse Resp B/P (MAP) Pulse Ox O2 Delivery O2 Flow Rate FiO2 10/08/20 06:00 98.1 78 16 109/69 (82) 95 Room Air Weight Weight [ ] Input and Output I.O. Intake and Output 10/08/20 07:00 Intake Total 780 ml Balance 780 ml Intake Oral 780 ml Laboratory Labs Laboratory Tests Test 10/06/20 11:10 10/06/20 11:20 10/06/20 11:50 10/06/20 12:50 White Blood Count 7.3 x10^3/uL (4.0-11.0) Red Blood Count 4.48 x10^6/uL (3.50-5.40) Hemoglobin 14.1 g/dL (12.0-15.5) Hematocrit 41.7 % (36.0-47.0) Mean Corpuscular Volume 93 fL (79-100) Mean Corpuscular Hemoglobin 32 pg (25-35) Mean Corpuscular Hemoglobin Concent 34 g/dL (31-37) Red Cell Distribution Width 14.4 % (11.5-14.5) Platelet Count 189 x10^3/uL (140-400) Neutrophils (%) (Auto) 66 % (31-73) Lymphocytes (%) (Auto) 25 % (24-48) Monocytes (%) (Auto) 7 % (0-9) Eosinophils (%) (Auto) 1 % (0-3) Basophils (%) (Auto) 1 % (0-3) Neutrophils # (Auto) 4.8 x10^3uL (1.8-7.7) Lymphocytes # (Auto) 1.8 x10^3/uL (1.0-4.8) Monocytes # (Auto) 0.5 x10^3/uL (0.0-1.1) Eosinophils # (Auto) 0.1 x10^3/uL (0.0-0.7) Basophils # (Auto) 0.0 x10^3/uL (0.0-0.2) Prothrombin Time 10.2 SEC (9.4-11.4) Prothromb Time International Ratio 1.0 (0.9-1.1) D-Dimer (Yadira) < 0.19 mg/L (0.00-0.50) Sodium Level mmol/L (136-145) Potassium Level mmol/L (3.5-5.1) Chloride Level mmol/L (98-107) Carbon Dioxide Level 27 mmol/L (21-32) Anion Gap (6-14) 15 mmol/L (6-14) Blood Urea Nitrogen 26 mg/dL (7-20) Creatinine 1.0 mg/dL (0.6-1.0) Estimated GFR (Cockcroft-Gault) 58.7 BUN/Creatinine Ratio 26 (6-20) Glucose Level 95 mg/dL (70-99) 84 mg/dL (60-99) Calcium Level 10.0 mg/dL (8.5-10.1) Magnesium Level 1.8 mg/dL (1.8-2.4) Total Bilirubin 0.5 mg/dL (0.2-1.0) Aspartate Amino Transf (AST/SGOT) 24 U/L (15-37) Alanine Aminotransferase (ALT/SGPT) 43 U/L (14-59) Alkaline Phosphatase 164 U/L (46-116) Troponin I Quantitative < 0.017 ng/mL (0-0.055) LD-Kvg-R-Type Natriuretic Peptide 96 pg/mL (0-124) Total Protein 7.4 g/dL (6.4-8.2) Albumin 4.0 g/dL (3.4-5.0) Albumin/Globulin Ratio 1.2 (1.0-1.7) Lactic Acid Level 1.7 mmol/L (0.4-2.0) Urine Collection Type Unknown Urine Color Yellow Urine Clarity Hazy Urine pH 5.5 Urine Specific [place] <=1.005 Urine Protein Neg (NEG-TRACE) Urine Glucose (UA) Neg mg/dL (NEG) Urine Ketones (Stick) Neg mg/dL (NEG) Urine Blood Trace (NEG) Urine Nitrite Neg (NEG) Urine Bilirubin Neg (NEG) Urine Urobilinogen Dipstick 0.2 mg/dL (0.2 mg/dL) Urine Leukocyte Esterase Small (NEG) Urine RBC 1-2 /HPF (0-2) Urine WBC 1-4 /HPF (0-4) Urine Squamous Epithelial Cells Mod /LPF Urine Bacteria Few /HPF (0-FEW) Bedside Hemoglobin 12.2 gm/dL Bedside Hematocrit 36 % Bedside Sodium 142 mmol/L (135-145) Bedside Potassium 4.9 mmol/L (3.5-5.0) Bedside Chloride 107 mmol/L (98-110) Bedside Total CO2 26 mmol/L (23-32) Bedside Blood Urea Nitrogen 25 mg/dL (8-26) Bedside Creatinine 0.8 mg/dL (0.5-1.4) Bedside Ionized Calcium (Veronica) 1.26 mmol/L (1.13-1.32) Test 10/07/20 05:30 Troponin I Quantitative < 0.017 ng/mL (0-0.055) Triglycerides Level 118 mg/dL (0-150) Cholesterol Level 180 mg/dL (0-200) LDL Cholesterol, Calculated 89 mg/dL (0-100) VLDL Cholesterol, Calculated 23 mg/dL (0-40) Non-HDL Cholesterol Calculated 112 mg/dL (0-129) HDL Cholesterol 68 mg/dL (40-60) Cholesterol/HDL Ratio 2.0 Physical Exams HEENT: Neck Supple W Full Motion Chest: Symmetric Lungs: Clear to Auscultation Heart: RRR Abdomen: Soft N/T Extremities: No Edema Neurology: alert, oriented, follow commands, other (flat affect ) Assessment Assessment 1. Syncopal episode; EKG shows no acute ischemic changes. Tele shows SR without any acute event. CT scan of the head and CT scan of the C-spine showed no acute changes. 2. Chest pain, atypical; AMI ruled out. 3. CAD s/p PCI/stent in 2017. Follows with [facility] cardiology, Dr. Figueroa. 4. Hypertension; controlled 5. Hyperlipidemia; statin 6. Anxiety, depression, SI. presently 1:1 monitoring. As per PCP Recommendation Continue secondary prevention measures including ASA and statin. Add low-dose BB therapy. BP will not tolerated addition of [facility] event monitor to r/o arrhythmias and ischemic evaluation given recurrent chest pain and h/o CAD. Patient would ideally like this conducted through her primary fire extinguisher technician. She will consider getting testing throughout [facility] if unable to get conducted in a timely manner through [facility]. Our contact information has been provided. Follow up with primary fire extinguisher technician upon discharge KIM HUYNH APRN Oct 08, 2020 07:53
--- NOTE | 2020-10-08 08:23 | RAD ---
EXAM: CHEST ONE VIEW. HISTORY: Fever, chest pain. COMPARISON: 09/23/2020. FINDINGS: A frontal view of the chest is obtained. There are no confluent infiltrates. There is no pneumothorax or pleural effusion. The heart is not en larged. IMPRESSION: 1. No confluent infiltrates. Electronically signed by: Christine Yost MD (10/08/2020 8:20 AM) [id number]
[2020-10-08] MEDS: CITALOPRAM 20 MG TABLET. PO SCH (08:52)
[2020-10-08] MEDS: ASPIRIN CHEWABLE 81 MG TABLET. PO SCH (08:52)
[2020-10-08] MEDS: OLANZapine 5 MG TABLET PO SCH (08:52)
[2020-10-08] MEDS ORDERED: METOPROLOL TART IMMED RELEASE 25 MG TABLET. PO SCH (09:00)
[2020-10-08] MEDS ORDERED: AZITHROMYCIN 250 MG TABLET. PO SCH (09:00)
[2020-10-08 10:20] VITALS: BP 107/70
--- NOTE | 2020-10-08 11:39 | NUR ---
Tim from Psychiatric Assessment Team is at bedside evaluating pt
[2020-10-08 15:23] VITALS: BP 102/63
--- NOTE | 2020-10-08 16:19 | NUR ---
Patient left with EMS staff on gurney to discharge/transfer to [facility] in [place], [place]. Pt left with belongings and is being monitored 1:1 by EMS staff. Pt is A&Ox4 and VSS.
== END 2020-10-08 16:15 | DRG 313 ==
LOC: ER 10:54 → 1 SOUTH 14:36 → OBSVTOIN 10-07 19:00
PROVIDERS: ADMIT Family Medicine; ATTEND Family Medicine
DX: R07.89 Other chest pain (principal); R45.851 Suicidal ideations; E11.9 Type 2 diabetes mellitus without complications; E78.00 Pure hypercholesterolemia, unspecified; E78.5 Hyperlipidemia, unspecified; F41.0 Panic disorder [episodic paroxysmal anxiety]; I10 Essential (primary) hypertension; I25.10 Atherosclerotic heart disease of native coronary artery without angina pectoris; I25.2 Old myocardial infarction; Z82.49 Family history of ischemic heart disease and other diseases of the circulatory system; Z87.891 Personal history of nicotine dependence; Z95.5 Presence of coronary angioplasty implant and graft; F32.9 Major depressive disorder, single episode, unspecified; K21.9 Gastro-esophageal reflux disease without esophagitis; Z20.822 Contact with and (suspected) exposure to COVID-19; Z88.0 Allergy status to penicillin; Z88.2 Allergy status to sulfonamides; Z88.8 Allergy status to other drugs, medicaments and biological substances; Z90.49 Acquired absence of other specified parts of digestive tract
CPT/HCPCS: 36415; 70450; 71045; 72125; 80047; 80053; 80061; 81001; 83605; 83735; 83880; 84484; 85025; 85379; 85610; 87086; 87426; 93005; G0378; G0379; J2405; J3010; U0003; J7030

== ENCOUNTER 2020-10-26 10:04 | Observation (INO) | payer SELFPAY ==
[~2020-10-26] VITALS: Ht 167.6 cm; Wt 67.0 kg
[2020-10-26] MEDS ORDERED: NITROGLYCERIN SUBLINGUAL 0.4 MG BOTTLE OF 25. SL PRN ×2 (10:30→12:45)
[2020-10-26 10:41] LABS: BASO % 0 % (0-3); EOS # 0.1 x10^3/uL (0.0-0.7); EOS % 1 % (0-3); HEMATOCRIT 40.3 % (36.0-47.0); HEMOGLOBIN 13.3 g/dL (12.0-15.5); LYMPH # 1.4 x10^3/uL (1.0-4.8); LYMPH % 20 % (24-48); MEAN CORPUSCULAR HEMOGLOBIN 32 pg (25-35); MEAN CORPUSCULAR HGB CONC 33 g/dL (31-37); MEAN CORPUSCULAR VOLUME 96 fL (79-100); MONO # 0.6 x10^3/uL (0.0-1.1); MONO % 8 % (0-9); NEUT % 71 % (31-73); PLATELET COUNT 164 x10^3/uL (140-400); RED BLOOD COUNT 4.21 x10^6/uL (3.50-5.40); RED CELL DISTRIBUTION WIDTH 14.4 % (11.5-14.5)
[2020-10-26] MEDS ORDERED: ONDANSETRON PF 4 MG/2 ML VIAL. ONE (10:49)
[2020-10-26 10:52] LABS: CALCIUM 9.1 mg/dL (8.5-10.1); GFR 58.5; POTASSIUM 4.8 mmol/L (3.5-5.1)
[2020-10-26 11:04] LABS: ALBUMIN/GLOBULIN RATIO 1.1 (1.0-1.7); TOTAL BILIRUBIN 0.4 mg/dL (0.2-1.0); TOTAL PROTEIN 7.5 g/dL (6.4-8.2)
--- NOTE | 2020-10-26 11:14 | PHYS DOC ---
Past History Past Medical History: Anxiety, Depression, High Cholesterol, Hypertension, PR Additional Past Medical Histor: panic attacks Past Surgical History: Cholecystectomy, Other Additional Past Surgical Histo: CARDIAC STENT 2017, BILE DUCT Smoking: Less than 1pk/day Alcohol Use: None General Adult EDM: Chief Complaint: CHEST PAIN HPI: HPI: Patient is a 50-year-old female coming in with chest pain that started at 9 AM this morning (1 hour prior to arrival). Patient states it feels like someone is sitting on her mid chest and radiates to the left shoulder. Patient states she has had this similar pain with her previous PR in 2017 where she had 1 stent placed. Is not currently on anticoagulation. Took 325 mg of aspirin at home prior to arrival. Patient states she is out of nitroglycerin. States her blood pressure was also in the 140s, states she was taking blood pressure medications up to about 2 weeks ago when she was at [facility] and her blood pressure was tending to run low. States she otherwise has been well prior to symptoms 1 hour ago. Review of Systems: Review of Systems: All other systems within normal limits except for as noted in the HPI Current Medications: Current Meds: Current Medications Medications (Trade) Dose Ordered Sig/Christina Start Time Stop Time Status Last Admin Dose Admin Nitroglycerin (Nitrostat) 0.4 mg PRN Q5MIN PRN 10/26/20 10:30 10/26/20 10:34 0.4 MG Ondansetron HCl (Zofran) 4 mg STK-MED ONCE 10/26/20 10:49 10/26/20 10:50 DC Allergies: Allergies: Allergies Coded Allergies Type Severity Reaction Last Updated Verified Penicillins Allergy Intermediate 08/24/20 Yes Sulfa (Sulfonamide Antibiotics) Allergy Intermediate 08/24/20 Yes cyproheptadine Allergy Intermediate 08/24/20 Yes Physical Exam: PE: Constitutional: Well developed, well nourished, no acute distress, non-toxic appearance. [] HENT: Normocephalic, atraumatic, bilateral external ears normal, nose normal. [] Eyes: PERRLA, conjunctiva normal, no discharge. [] Neck: No rigidity, supple, no stridor. [] Cardiovascular: Regular rate and rhythm, brisk cap refill, symmetric radial pu lses [] Lungs & Thorax: Non labored symmetric respirations, no tachypnea or respiratory distress. ] Abdomen: Soft, nondistended. Skin: Warm, dry, no erythema, no rash. [] Back: Unremarkable Extremities: No deformities, range of motion grossly intact, no lower extremity edema [] Neurologic: Alert and oriented X 3, no focal deficits noted. [] Psychologic: Affect normal, judgement normal, mood normal. [] Current Patient Data: Labs: Laboratory Tests Test 10/26/20 10:22 White Blood Count 7.0 x10^3/uL (4.0-11.0) Red Blood Count 4.21 x10^6/uL (3.50-5.40) Hemoglobin 13.3 g/dL (12.0-15.5) Hematocrit 40.3 % (36.0-47.0) Mean Corpuscular Volume 96 fL (79-100) Mean Corpuscular Hemoglobin 32 pg (25-35) Mean Corpuscular Hemoglobin Concent 33 g/dL (31-37) Red Cell Distribution Width 14.4 % (11.5-14.5) Platelet Count 164 x10^3/uL (140-400) Neutrophils (%) (Auto) 71 % (31-73) Lymphocytes (%) (Auto) 20 % (24-48) L Monocytes (%) (Auto) 8 % (0-9) Eosinophils (%) (Auto) 1 % (0-3) Basophils (%) (Auto) 0 % (0-3) Neutrophils # (Auto) 5.0 x10^3uL (1.8-7.7) Lymphocytes # (Auto) 1.4 x10^3/uL (1.0-4.8) Monocytes # (Auto) 0.6 x10^3/uL (0.0-1.1) Eosinophils # (Auto) 0.1 x10^3/uL (0.0-0.7) Basophils # (Auto) 0.0 x10^3/uL (0.0-0.2) Sodium Level 139 mmol/L (136-145) Potassium Level 4.8 mmol/L (3.5-5.1) Chloride Level 101 mmol/L (98-107) Carbon Dioxide Level 29 mmol/L (21-32) Anion Gap 9 (6-14) Blood Urea Nitrogen 22 mg/dL (7-20) H Creatinine 1.0 mg/dL (0.6-1.0) Estimated GFR (Cockcroft-Gault) 58.5 BUN/Creatinine Ratio 22 (6-20) H Glucose Level 93 mg/dL (70-99) Calcium Level 9.1 mg/dL (8.5-10.1) Total Bilirubin 0.4 mg/dL (0.2-1.0) Aspartate Amino Transferase (AST) 41 U/L (15-37) H Alanine Aminotransferase (ALT) 76 U/L (14-59) H Alkaline Phosphatase 162 U/L (46-116) H Troponin I Quantitative < 0.017 ng/mL (0-0.055) UQ-Mny-H-Type Natriuretic Peptide 72 pg/mL (0-124) Total Protein 7.5 g/dL (6.4-8.2) Albumin 4.0 g/dL (3.4-5.0) Albumin/Globulin Ratio 1.1 (1.0-1.7) Vital Signs: Vital Signs Date Time Temp Pulse Resp B/P (MAP) Pulse Ox O2 Delivery O2 Flow Rate FiO2 10/26/20 10:34 83 146/107 EKG: EKG: Sinus rhythm heart rate 77 bpm, slight left axis deviation. Incomplete right bundle branch block, no ST elevation or depression, normal intervals, no ectopy [] Radiology/Procedures: Radiology/Procedures: XR CHEST 1V Indication: Reason: chest pain / Spl. Instructions: / History: Comparison: October 08, 2020 FINDINGS: The cardiac silhouette and pulmonary vasculature are within normal limits. There is no focal consolidation, pleural effusion or pneumothorax. The visualized osseous structures are intact. IMPRESSION: No evidence for acute cardiopulmonary disease. [] Heart Score: HEART Score for Chest Pain: HEART Score for Chest Pain Response (Comments) Value History Highly Suspicious 2 ECG Normal 0 Risk Factors >3 Risk Factors or Hx CAD 2 Troponin < Normal Limit 0 Total 4 Risk Factors: Risk Factors: DM, Current or recent (<one month) smoker, HTN, HLP, family history of CAD, obesity. Risk Scores: Score 0 - 3: 2.5% MACE over next 6 weeks - Discharge Home Score 4 - 6: 20.3% MACE over next 6 weeks - Admit for Clinical Observation Score 7 - 10: 72.7% MACE over next 6 weeks - Early Invasive Strategies Course & Med Decision Making: Course & Med Decision Making Pertinent Labs and Imaging studies reviewed. (See chart for details) Patient with typical sounding chest pain relieved with nitroglycerin and history of coronary artery disease and stent placed a few years ago. Has had multiple work-ups in the past for chest pain observations and were negative. Patient's heart score indicates admission is warranted [] Dragon Disclaimer: Dragon Disclaimer: This electronic medical record was generated, in whole or in part, using a voice recognition dictation system. Departure Departure: Impression: Primary Impression: Chest pain Disposition: ADMITTED INPT THIS HOSP Admitting Physician: Larry Sommer Condition: STABLE Referrals: LARRY SOMMER MD (PCP) JONATHAN IBARRA MD Oct 26, 2020 11:14
--- NOTE | 2020-10-26 12:37 | EKG ---
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
[2020-10-26] MEDS ORDERED: ONDANSETRON PF 4 MG/2 ML VIAL. IVP PRN (12:45)
[2020-10-26] MEDS ORDERED: ACETAMINOPHEN 325 MG TABLET PO PRN (12:45)
[2020-10-26 12:49] LABS: BACTERIA,URINE 0 /HPF (0-FEW); BILIRUBIN,URINE NEG (NEG); CLARITY,URINE CLEAR; COLOR,URINE YELLOW; GLUCOSE,URINE NEG (NEG); NITRITE,URINE NEG (NEG); SQUAMOUS EPITHELIAL CELL,UR FEW /LPF; UROBILINOGEN,URINE 0.2 mg/dL (0.2 mg/dL)
[2020-10-26 12:50] LABS: HYALINE CASTS, URINE OCC /HPF
[2020-10-26] MEDS ORDERED: PROZ (15:02)
[2020-10-26] MEDS ORDERED: PROZAC PO (15:02)
[2020-10-26] MEDS ORDERED: OLAN5TAB9 PO (15:02)
--- NOTE | 2020-10-26 15:39 | RAD ---
XR CHEST 1V Indication: Reason: chest pain / Spl. Instructions: / History: Comparison: October 08, 2020 FINDINGS: The cardiac silhouette and pulmonary vasculature are within normal limits. There is no focal consolidation, pleural effusion or pneumothorax. The visualized osseous structures are intact. IMPRESSION: No evidence for acute cardiopulmonary disease. MTDD
[2020-10-26] MEDS ORDERED: NICOTINE 21MG PATCH. TD PRN (18:00)
[2020-10-26] MEDS ORDERED: clonazePAM 1 MG TABLET PO PRN (18:00)
[2020-10-26 19:57] VITALS: BP 138/79
[2020-10-26] MEDS ORDERED: OLANZapine 5 MG TABLET PO SCH (21:00)
[2020-10-26] MEDS ORDERED: ATORVASTATIN CALCIUM 20 MG TABLET PO SCH (21:00)
[2020-10-27] MEDS ORDERED: FLUoxetine HCL 20 MG CAPSULE PO SCH (09:00)
[2020-10-27] MEDS ORDERED: PANTOPRAZOLE 40 MG TABLET. PO SCH (09:00)
[2020-10-27] MEDS ORDERED: ASPIRIN CHEWABLE 81 MG TABLET. PO SCH (09:00)
== END 2020-10-26 20:15 | disposition home or self-care (01) ==
LOC: ER 10:04 → 1 SOUTH 12:37
PROVIDERS: ADMIT Family Medicine; ATTEND Family Medicine
DX: R07.89 Other chest pain (principal); I10 Essential (primary) hypertension; F41.9 Anxiety disorder, unspecified; F32.9 Major depressive disorder, single episode, unspecified; E78.00 Pure hypercholesterolemia, unspecified; I25.2 Old myocardial infarction; I25.10 Atherosclerotic heart disease of native coronary artery without angina pectoris; E11.9 Type 2 diabetes mellitus without complications; E78.5 Hyperlipidemia, unspecified; F41.0 Panic disorder [episodic paroxysmal anxiety]; F17.210 Nicotine dependence, cigarettes, uncomplicated; Z95.5 Presence of coronary angioplasty implant and graft; Z90.49 Acquired absence of other specified parts of digestive tract; Z79.82 Long term (current) use of aspirin
CPT/HCPCS: 36415; 71045; 80053; 81001; 83880; 84484; 85025; 93005; 96374; 99285; G0378; J3010; G0379

== ENCOUNTER 2021-03-08 09:16 | Emergency (ER) | payer SELFPAY ==
[~2021-03-08] VITALS: Ht 167.6 cm; Wt 80.0 kg
[~2021-03-08 09:16] MED LIST changes: +PROZ; +PROZAC PO
--- NOTE | 2021-03-08 09:45 | PHYS DOC ---
Past History Past Medical History: CAD, High Cholesterol, [place] Additional Past Medical Histor: panic attacks Past Surgical History: Cholecystectomy Additional Past Surgical Histo: HEART SENT Smoking: Less than 1pk/day Alcohol Use: None Adult General Chief Complaint Chief Complaint: ABDOMINAL PAIN HPI HPI Patient is a 50-year-old female presenting for right upper quadrant ultrasound. She is here by PCP request. She is in the middle of work-up in outpatient setting for transaminitis of unknown cause and and outpatient right upper quadrant ultrasound was ordered. Nonetheless, when patient arrived today to have this procedure performed she admits she did not have the money to cover upfront costs. She contacted primary care physician and discussed financial hardship and so, it was recommended she check into the ER to have said procedure performed. On arrival, patient has no acute complaints, she is on no known hepatotoxic medications, no history of hep C or other immunocompromising or hepatotoxic conditions Review of Systems Review of Systems Fourteen body systems of review of systems have been reviewed. See HPI for pertinent positives and negative responses, other calvert all other systems are negative, non-pertinent or non-contributory Allergies Allergies Allergies Coded Allergies Type Severity Reaction Last Updated Verified Penicillins Allergy Intermediate 03/08/21 Yes Sulfa (Sulfonamide Antibiotics) Allergy Intermediate 03/08/21 Yes cyproheptadine Allergy Intermediate 08/24/20 Yes Physical Exam Physical Exam Constitutional: Well developed, well nourished, no acute distress, non-toxic appearance. HENT: Normocephalic, atraumatic, bilateral external ears normal, oropharynx moist, no oral exudates, nose normal. Eyes: PERRLA, EOMI, conjunctiva normal, no discharge. Neck: Normal range of motion, no tenderness, supple, no stridor. Cardiovascular: Heart rate regular, sinus rhythm, no murmurs rubs or gallops Lungs & Thorax: Bilateral breath sounds clear to auscultation Abdomen: Bowel sounds normal, soft, right lower quadrant pain with palpation without guarding or rebound, no masses, no pulsatile masses. Nonsurgical abdomen, no peritoneal signs Skin: Warm, dry, no erythema, no rash. Back: No tenderness, no CVA tenderness. Extremities: No tenderness, no cyanosis, no clubbing, ROM intact, no edema. Neurologic: Alert and oriented X 3, grossly normal motor & sensory function, no focal deficits noted. Psychologic: Anxious affect and mood Current Patient Data Vital Signs Vital Signs Date Time Temp Pulse Resp B/P (MAP) Pulse Ox O2 Delivery O2 Flow Rate FiO2 03/08/21 09:32 97.6 122 18 106/67 (80) 96 Room Air EKG EKG [] Radiology/Procedures Radiology/Procedures EXAMINATION: US ABDOMEN LIMITED 03/08/2021 9:55 AM INDICATION: Transaminitis, right flank pain TECHNIQUE: King scale and color Doppler ultrasound images of the right upper quadrant were obtained. COMPARISON: CT abdomen and pelvis 08/02/2020. FINDINGS: Liver: The liver is normal in size measuring 18 cm in length. There is mildly increased hepatic echogenicity. No focal liver lesion. Gallbladder: The gallbladder is surgically absent. Bile ducts: The common bile duct is normal measuring 5 mm. No intrahepatic biliary duct dilatation. Right kidney: The right kidney measures 10.4 x 3.9 x 3.7 cm. Normal cortical thickness and echogenicity. No hydronephrosis. Other: The inferior vena cava is normal where visualized. The pancreas is normal where visualized. No abnormality seen in the right lower quadrant area of pain. The appendix is not visualized. IMPRESSION: 1. Mild hepatic steatosis. 2. Appendix not visualized. Electronically signed by: Vane Melara MD (03/08/2021 10:24 AM) [id number] Heart Score C/O Chest Pain: No Risk Factors: Risk Factors: DM, Current or recent (<one month) smoker, HTN, HLP, family history of CAD, obesity. Risk Scores: Risk Factors: DM, Current or recent (<one month) smoker, HTN, HLP, family history of CAD, obesity. Course & Med Decision Making Course & Med Decision Making ABCs unremarkable. I disclosed entirety of ER findings and discussed most likely diagnosis of hepatic steatosis as potential cause for her mild transaminitis. Joint decision given patient's asymptomatic state to defer any further diagnostic work-up in ER setting and so, I stressed need for close outpatient follow-up to review today's ER visit. Strict return precautions were also discussed at length with good understanding by patient. Patient voiced understanding and agreement with the plan. Patient knows to come back for repeat evaluation if concerning signs or symptoms present prior to outpatient follow- up. Hemodynamically stable, ambulatory and well-appearing at time of disposition. Dragon Disclaimer Dragon Disclaimer This electronic medical record was generated, in whole or in part, using a voice recognition dictation system. Departure Departure: Impression: Primary Impression: Unspecified abdominal pain Additional Impression: Transaminitis Disposition: HOME / SELF CARE / HOMELESS Condition: STABLE Referrals: RICO ARZATE MD (PCP) Additional Instructions: You have been evaluated in the Emergency Department today for abdominal pain. Your evaluation was not suggestive of any emergent condition requiring medical intervention at this time. However, some abdominal problems make take more time to appear. Therefore, it is important for you to watch for any new symptoms or worsening of your current condition. We discussed utility of further diagnostic work-up in ER setting; however, this was deferred to your primary care physician in the outpatient setting. Just know if anything worsens prior to outpatient visit, do not hesitate to come back for repeat evaluation Return to the Emergency Department if you experience worsening pain, persistent fevers greater than 100.4, recurrent vomiting, blood in vomit, blood in stool, dark tarry stool, chest pain, difficulty breathing, or any other concerning symptoms. Problem Qualifiers ANAY MCMANUS DO Mar 08, 2021 09:45
--- NOTE | 2021-03-08 10:26 | RAD ---
EXAMINATION: US ABDOMEN LIMITED 03/08/2021 9:55 AM INDICATION: Transaminitis, right flank pain TECHNIQUE: King scale and color Doppler ultrasound images of the right upper quadrant were obtained. COMPARISON: CT abdomen and pelvis 08/02/2020. FINDINGS: Liver: The liver is normal in size measuring 18 cm in length. There is mildly increased hepatic echog enicity. No focal liver lesion. Gallbladder: The gallbladder is surgically absent. Bile ducts: The common bile duct is normal measuring 5 mm. No intrahepatic biliary duct dilatation. Right kidney: The right kidney measures 10.4 x 3.9 x 3.7 cm. Normal cortical thickness and echogenic ity. No hydronephrosis. Other: The inferior vena cava is normal where visualized. The pancreas is normal where visualized. No abnormality seen in the right lower quadrant area of pain. The appendix is not visualized. IMPRESSION: 1. Mild hepatic steatosis. 2. Appendix not visualized. Electronically signed by: Vane Melara MD (03/08/2021 10:24 AM) [id number]
[2021-03-08 11:11] VITALS: BP 106/45
== END 2021-03-08 11:23 | disposition home or self-care (01) ==
LOC: ER 09:16
DX: R74.01 Elevation of levels of liver transaminase levels (principal); R10.31 Right lower quadrant pain; E78.5 Hyperlipidemia, unspecified; I25.2 Old myocardial infarction; F17.200 Nicotine dependence, unspecified, uncomplicated; Z90.49 Acquired absence of other specified parts of digestive tract; Z88.2 Allergy status to sulfonamides; Z88.0 Allergy status to penicillin
CPT/HCPCS: 76705; 99284-25

== ENCOUNTER 2021-05-22 15:32 | Observation (INO) | payer MEDICAID, OTHER ==
[~2021-05-22] VITALS: Ht 167.6 cm; Wt 83.9 kg
[~2021-05-22 15:32] MED LIST changes: +OLAN5TAB67 PO; -OLAN5TAB9 PO
--- NOTE | 2021-05-22 15:52 | PHYS DOC ---
Past History Past Medical History: CAD, High Cholesterol, [place] Additional Past Medical Histor: panic attacks Past Surgical History: Cholecystectomy Additional Past Surgical Histo: HEART SENT Smoking: Less than 1pk/day Alcohol Use: None Adult General Chief Complaint Chief Complaint: CHEST PAIN HPI HPI Patient is a 50-year-old female presenting via EMS for chest pain. Onset was yesterday evening while watching TV. Reports it was not bad at the time, nothing known made better or worse. She was able to sleep overnight and when waking up today, states she felt it with increased severity. It went on throughout entirety of the day until she finally got concerned and called EMS for transfer to our facility. Patient describes pressure as substernal with radiation to left shoulder, states it feels like pressure versus pain and describes it as "some one sitting on me". Admits she has significant cardiac history, she takes 1 baby aspirin daily in addition to high intensity statin. She is covered in outpatient setting by [facility] [address] cardiology team. She has history of heart attack with x1 stent to LAD placed 9 years ago and is concerned because pressure today feels like similar pressure she had at that time. Has not had any significant provocative cardiac testing or intervention since that stent was placed. Patient is a former smoker, stopped last June and otherwise denies any alcohol or recreational drug use. She has not been vaccinated against COVID-19. Only other associated symptoms include diarrhea with looser stools than her normal first experience today. Denies any other fever, recent travel or sick contacts, states she has been home bound and fear of getting COVID-19 in the community On arrival to scene, patient was found to be hemodynamically stable. She was given a total of 324 mg aspirin and x1 nitro that did not improve her pain. She was subsequently transported to our ER for further evaluation Review of Systems Review of Systems Fourteen body systems of review of systems have been reviewed. See HPI for pertinent positives and negative responses, other calvert all other systems are negative, non-pertinent or non-contributory Allergies Allergies Allergies Coded Allergies Type Severity Reaction Last Updated Verified Penicillins Allergy Intermediate 03/08/21 Yes Sulfa (Sulfonamide Antibiotics) Allergy Intermediate 03/08/21 Yes cyproheptadine Allergy Intermediate 08/24/20 Yes Physical Exam Physical Exam Constitutional: Well developed, well nourished, no acute distress, non-toxic appearance. HENT: Normocephalic, atraumatic, bilateral external ears normal, oropharynx moist, no oral exudates, nose normal. Eyes: PERRLA, EOMI, conjunctiva normal, no discharge. Neck: Normal range of motion, no tenderness, supple, no stridor. Cardiovascular: Heart rate regular, sinus rhythm, no murmurs rubs or gallops Lungs & Thorax: Bilateral breath sounds clear to auscultation Abdomen: Bowel sounds normal, soft, no tenderness, no masses, no pulsatile masses. Nonsurgical abdomen, no peritoneal signs Skin: Warm, dry, no erythema, no rash. Back: No tenderness, no CVA tenderness. Extremities: No tenderness, no cyanosis, no clubbing, ROM intact, no edema. Neurologic: Alert and oriented X 3, grossly normal motor & sensory function, no focal deficits noted. Psychologic: Flat affect, anxious mood Current Patient Data Vital Signs Vital Signs Date Time Temp Pulse Resp B/P (MAP) Pulse Ox O2 Delivery O2 Flow Rate FiO2 05/22/21 15:49 98.0 79 21 118/72 93 Room Air Vital Signs Date Time Temp Pulse Resp B/P (MAP) Pulse Ox O2 Delivery O2 Flow Rate FiO2 05/22/21 16:00 92 121/77 05/22/21 15:49 98.0 21 93 Room Air Lab Results Current Medications Medications (Trade) Dose Ordered Sig/Christina Route PRN Reason Start Time Stop Time Status Last Admin Dose Admin Nitroglycerin (Nitrostat) 0.4 mg PRN Q5MIN PRN SL CP RATING > 1/10 05/22/21 16:00 05/22/21 17:48 DC 05/22/21 16:00 Iohexol (Omnipaque 350 Mg/ml) 100 ml 1X ONCE IV 05/22/21 16:45 05/22/21 16:46 DC 05/22/21 16:53 EKG EKG EKG ordered and interpreted by myself at 1549 hrs. as sinus rhythm at 84 bpm, unremarkable intervals, left axis deviation, no STEMI Repeat EKG ordered and interpreted by myself at 1621 hrs. is sinus rhythm at 84 bpm, unremarkable intervals, left axis deviation, no acute ischemic findings, no STEMI Radiology/Procedures Radiology/Procedures INDICATION: Reason: CHEST PAIN / Spl. Instructions: / History: COMPARISON: October 2020 FINDINGS: Single view of chest obtained. Hyperexpanded lungs again seen. No definite new region of consolidation. IMPRESSION: * No focal airspace consolidation or edema. Electronically signed by: Miguel Little MD (05/22/2021 4:08 PM) [id number] ///////////////////////////////// Exam: CT of chest with contrast INDICATION: Chest pain to back and left shoulder TECHNIQUE: Sequential axial images through the chest obtained following the administration of 80 mL of Isovue-370 IV contrast. Sagittal and coronal reformatted images were reconstructed from the axial data and reviewed. 3-D reformatted images were reconstructed from the axial data and reviewed. Exposure: One or more of the following in the visualized dose reduction techniques were utilized for this examination: 1. Automated exposure control 2. Adjustment of the MA and/or KV according to patient size 3. Use of iterative of reconstructive technique Comparisons: 08/24/2020 FINDINGS: Visualized portions of the thyroid are unremarkable. No enlarged mediastinal lymph nodes are identified. Heart size is normal. No pericardial effusion. Thoracic aorta has a normal course and caliber. 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 No pulmonary embolus identified within the main, lobar or segmental pulmonary arteries. Airways are patent. Strandy opacities the dependent portion lungs likely representing atelectasis. No suspicious lung nodules are identified. No pleural effusion or thickening. Visualized upper abdomen is unremarkable. No suspicious osseous lesions or acute fractures. IMPRESSION: No pulmonary embolus identified within the main, lobar or segmental pulmonary arteries. Electronically signed by: Diana Hebert MD (05/22/2021 5:05 PM) [facility] Heart Score C/O Chest Pain: Yes HEART Score for Chest Pain: HEART Score for Chest Pain Response (Comments) Value History Moderately Suspicious 1 ECG Nonspecific Repolarizatio 1 Age >45 - < 65 1 Risk Factors >3 Risk Factors or Hx CAD 2 Troponin < Normal Limit 0 Total 5 Risk Factors: Risk Factors: DM, Current or recent (<one month) smoker, HTN, HLP, family history of CAD, obesity. Risk Scores: Risk Factors: DM, Current or recent (<one month) smoker, HTN, HLP, family history of CAD, obesity. Course & Med Decision Making Course & Med Decision Making ABCs unremarkable. IV access and vitals obtained with subsequent HPI, physical exam and ER work-up that was nonconcerning for any emergent or surgical issues With that said, heart score reviewed in patient with high risk for adverse cardiac events. Joint decision to admit. Efforts were made to transfer to [address] but due to the COVID-19 pandemic, they were at capacity and deferred transfer. As such, hospitalist at [facility] contacted and case reviewed, they agreed need for admission and accepted patient under their care I updated patient on proposed plan of care that would include hospital admission with likely cardiology consultation, patient amenable. All questions and concerns addressed prior to hospital admission Dragon Disclaimer Dragon Disclaimer This electronic medical record was generated, in whole or in part, using a voice recognition dictation system. Departure Departure: Impression: Primary Impression: Chest pain Disposition: HOME / SELF CARE / HOMELESS Admitting Physician: Rico Arzate Condition: STABLE Referrals: RICO ARZATE MD (PCP) ANAY MCMANUS DO May 22, 2021 15:52
[2021-05-22] MEDS ORDERED: NITROGLYCERIN SUBLINGUAL 0.4 MG BOTTLE OF 25. SL PRN ×2 (16:00→17:45)
--- NOTE | 2021-05-22 16:02 | EKG ---
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
[2021-05-22 16:04] LABS: BASO # 0.1 x10^3/uL (0.0-0.2); BASO % 1 % (0-3); EOS % 1 % (0-3); HEMATOCRIT 40.8 % (36.0-47.0); HEMOGLOBIN 13.6 g/dL (12.0-15.5); LYMPH # 1.4 x10^3/uL (1.0-4.8); LYMPH % 22 % (24-48); MEAN CORPUSCULAR HEMOGLOBIN 30 pg (25-35); MEAN CORPUSCULAR HGB CONC 34 g/dL (31-37); MEAN CORPUSCULAR VOLUME 91 fL (79-100); MONO # 0.5 x10^3/uL (0.0-1.1); MONO % 8 % (0-9); NEUT # 4.3 x10^3uL (1.8-7.7); NEUT % 68 % (31-73); PLATELET COUNT 171 x10^3/uL (140-400); RED BLOOD COUNT 4.48 x10^6/uL (3.50-5.40); RED CELL DISTRIBUTION WIDTH 15.2 % (11.5-14.5); WHITE BLOOD COUNT 6.4 x10^3/uL (4.0-11.0)
--- NOTE | 2021-05-22 16:10 | RAD ---
INDICATION: Reason: CHEST PAIN / Spl. Instructions: / History: COMPARISON: October 2020 FINDINGS: Single view of chest obtained. Hyperexpanded lungs again seen. No definite new region of consolidation. IMPRESSION: * No focal airspace consolidation or edema. Electronically signed by: Miguel Little MD (05/22/2021 4:08 PM) [id number]
[2021-05-22] MEDS ORDERED: QUET100T4 PO (16:11)
[2021-05-22] MEDS ORDERED: FLUO40CA2 PO (16:11)
[2021-05-22] MEDS ORDERED: DOCU100T5 PO (16:11)
[2021-05-22] MEDS ORDERED: CILO100T PO (16:11)
[2021-05-22] MEDS ORDERED: BUSP10TA PO (16:11)
[2021-05-22] MEDS ORDERED: TRAZ150T49 PO (16:11)
[2021-05-22] MEDS ORDERED: QUET50TA5 PO (16:11)
[2021-05-22 16:18] LABS: CALCIUM 9.4 mg/dL (8.5-10.1); CREATININE 1.1 mg/dL (0.6-1.0); GFR 52.4; POTASSIUM 4.2 mmol/L (3.5-5.1)
--- NOTE | 2021-05-22 16:22 | EKG ---
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
[2021-05-22 16:30] LABS: ALBUMIN 3.8 g/dL (3.4-5.0); ALBUMIN/GLOBULIN RATIO 1.1 (1.0-1.7); TOTAL BILIRUBIN 0.5 mg/dL (0.2-1.0); TOTAL PROTEIN 7.4 g/dL (6.4-8.2)
[2021-05-22] MEDS ORDERED: IOHEXOL 350 MG/ML 100 ML VIAL. IV ONE (16:45)
--- NOTE | 2021-05-22 17:07 | RAD ---
Exam: CT of chest with contrast INDICATION: Chest pain to back and left shoulder TECHNIQUE: Sequential axial images through the chest obtained following the administration of 80 mL o f Isovue-370 IV contrast. Sagittal and coronal reformatted images were reconstructed from the axial d cleo and reviewed. 3-D reformatted images were reconstructed from the axial data and reviewed. Exposure: One or more of the following in the visualized dose reduction techniques were utilized for this examination: 1. Automated exposure control 2. Adjustment of the MA and/or KV according to patient size 3. Use of iterative of reconstructive technique Comparisons: 08/24/2020 FINDINGS: Visualized portions of the thyroid are unremarkable. No enlarged mediastinal lymph nodes are identifi ed. Heart size is normal. No pericardial effusion. Thoracic aorta has a normal course and caliber. 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 No pulmonary embolus identified within the main, lobar or segmental pulmonary arteries. Airways are patent. Strandy opacities the dependent portion lungs likely representing atelectasis. No suspicious lung nodules are identified. No pleural effusion or thickening. Visualized upper abdomen is unremarkable. No suspicious osseous lesions or acute fractures. IMPRESSION: No pulmonary embolus identified within the main, lobar or segmental pulmonary arteries. Electronically signed by: Diana Hebert MD (05/22/2021 5:05 PM) [facility]
[2021-05-22] MEDS ORDERED: ACETAMINOPHEN 325 MG TABLET PO PRN (17:45)
[2021-05-22 23:59] VITALS: BP 126/77
[2021-05-23] MEDS ORDERED: busPIRone 5 MG TABLET. PO ONE (01:00)
[2021-05-23] MEDS ORDERED: traZODone 50 MG TABLET. PO ONE (01:00)
[2021-05-23] MEDS ORDERED: clonazePAM 1 MG TABLET PO ONE (01:00)
[2021-05-23] MEDS ORDERED: ATORVASTATIN CALCIUM 20 MG TABLET PO ONE (01:00)
[2021-05-23] MEDS ORDERED: QUEtiapine 50 MG TABLET. PO ONE (01:00)
[2021-05-23 03:15] VITALS: BP 121/79
--- NOTE | 2021-05-23 04:28 | NUR ---
The patient, AMANUEL RUFF I, 50 y/o, F admitted by JANINE KERR MD, was given written information regarding hospital policies, unit procedures and contact persons. Valuables were checked and vital signs obtained. PT oriented to unit. Reviewed with PT her PMH, PSH, SH, FH, and medications.
[2021-05-23 06:05] VITALS: BP 110/72
--- NOTE | 2021-05-23 08:39 | PDOC2 ---
CARDIAC CONSULT DATE OF CONSULT DOS: DATE: 05/23/21 TIME: 08:34 REASON FOR CONSULT Reason for Consult Chest pain REFERRING PHYSICIAN Referring Physician Dr. Marques SOURCE Source: Chart review, Patient HPI History of Present Illness This is a 50 yo female who presented secondary to chest pain. Patient reports experiencing chest pain for the last couple of days. Located in her left chest. Describes as pressure. Radiates down the left arm. Associated with shortness of breath. Patient reports pain to be similar to what she previously experiencing in 2016 with ID requiring stents. No specific worsening or reliving factors. Has had two additional admission for chest pain this year. Follows with [facility]. Reports having stress test last year. Thinks this was okay. PAST MEDICAL HISTORY Cardiovascular: CAD, HTN, hyperipidemia GI: GERD Psych: Anxiety, Depression PAST SURGICAL HISTORY Past Surgical History: Cholecystectomy FAMILY HISTORY Family History: Diabetes, Heart Disease, Hypertension SOCIAL HISTORY Smoke: Quit ALCOHOL: none Drugs: None Lives: with Family CURRENT MEDICATIONS Current Medications Current Medications Nitroglycerin (Nitrostat) 0.4 mg PRN Q5MIN PRN SL CP RATING > 1/10 Last administered on 05/22/21at 16:00; Start 05/22/21 at 16:00; Stop 05/22/21 at 17:48; Status DC Iohexol (Omnipaque 350 Mg/ml) 100 ml 1X ONCE IV Last administered on 05/22/21at 16:53; Start 05/22/21 at 16:45; Stop 05/22/21 at 16:46; Status DC Acetaminophen (Tylenol) 650 mg PRN Q4HRS PRN PO FEVER > 100.3'F; Start 05/22/21 at 17:45; Stop 05/23/21 at 17:44 Nitroglycerin (Nitrostat) 0.4 mg PRN Q5MIN PRN SL CHEST PAIN; Start 05/22/21 at 17:45; Stop 05/23/21 at 17:44 Atorvastatin Calcium (Lipitor) 80 mg 1X ONCE PO Last administered on 05/23/21at 01:40; Start 05/23/21 at 01:00; Stop 05/23/21 at 01:01; Status DC Trazodone HCl (Desyrel) 25 mg 1X ONCE PO Last administered on 05/23/21at 01:40; Start 05/23/21 at 01:00; Stop 05/23/21 at 01:01; Status DC Buspirone HCl (Buspar) 10 mg 1X ONCE PO Last administered on 05/23/21at 01:39; Start 05/23/21 at 01:00; Stop 05/23/21 at 01:01; Status DC Quetiapine Fumarate (SEROquel) 50 mg 1X ONCE PO Last administered on 05/23/21at 01:40; Start 05/23/21 at 01:00; Stop 05/23/21 at 01:01; Status DC Clonazepam (KlonoPIN) 1 mg 1X ONCE PO Last administered on 05/23/21at 01:39; Start 05/23/21 at 01:00; Stop 05/23/21 at 01:01; Status DC Active Scripts Active Reported Seroquel (Quetiapine Fumarate) 100 Mg Tablet 200 Mg PO QHS LAST DOSE GIVEN: DATE: TIME: NEXT DOSE DUE: DATE: TIME: Seroquel (Quetiapine Fumarate) 50 Mg Tablet 50 Mg PO [id number] LAST DOSE GIVEN: DATE: TIME: NEXT DOSE DUE: DATE: TIME: Docusate Sodium 100 Mg Tablet 1 Tab PO BID LAST DOSE GIVEN: DATE: TIME: NEXT DOSE DUE: DATE: TIME: Buspirone Hcl 10 Mg Tablet 20 Mg PO BID LAST DOSE GIVEN: DATE: TIME: NEXT DOSE DUE: DATE: TIME: Trazodone Hcl 150 Mg Tablet 150 Tab PO QHS LAST DOSE GIVEN: DATE: TIME: NEXT DOSE DUE: DATE: TIME: Fluoxetine Hcl 40 Mg Capsule 80 Mg PO DAILY LAST DOSE GIVEN: DATE: TIME: NEXT DOSE DUE: DATE: TIME: Atorvastatin Calcium 80 Mg Tablet 80 Mg PO QHS LAST DOSE GIVEN: DATE: TIME: NEXT DOSE DUE: DATE: TIME: Aspirin 81 Mg Tab.chew 81 Mg PO DAILY LAST DOSE GIVEN: DATE: TIME: NEXT DOSE DUE: DATE: TIME: Pantoprazole Sodium 40 Mg Tablet.dr 40 Mg PO DAILY07 LAST DOSE GIVEN: DATE: TIME: NEXT DOSE DUE: DATE: TIME: ALLERGIES Allergies: Coded Allergies: Penicillins (Verified Allergy, Intermediate, 03/08/21) Sulfa (Sulfonamide Antibiotics) (Verified Allergy, Intermediate, 03/08/21) cyproheptadine (Verified Allergy, Intermediate, 08/24/20) caused her HR and her BP to go up ROS Review of Systems 14 point ROS conducted with pertinent positives noted above in hPI PHYSICAL EXAM General: Alert, Oriented X3, Cooperative, No acute distress HEENT: Atraumatic Lungs: Clear to auscultation Heart: Regular rate Abdomen: Soft, No tenderness Extremities: No edema, Normal pulses Skin: No breakdown Neuro: Normal speech, Sensation intact Psych/Mental Status: Mental status NL, Mood NL MUSCULOSKELETAL: Osteoarthritic changes both hands VITALS Vital Signs Vital Signs Date Time Temp Pulse Resp B/P (MAP) Pulse Ox O2 Delivery O2 Flow Rate FiO2 05/23/21 06:05 97.8 72 16 110/72 (85) 97 Room Air 05/22/21 18:00 2.0 LABS LABS Laboratory Tests Test 05/22/21 15:47 05/22/21 16:55 05/22/21 21:16 05/22/21 23:45 White Blood Count 6.4 x10^3/uL (4.0-11.0) Red Blood Count 4.48 x10^6/uL (3.50-5.40) Hemoglobin 13.6 g/dL (12.0-15.5) Hematocrit 40.8 % (36.0-47.0) Mean Corpuscular Volume 91 fL (79-100) Mean Corpuscular Hemoglobin 30 pg (25-35) Mean Corpuscular Hemoglobin Concent 34 g/dL (31-37) Red Cell Distribution Width 15.2 % (11.5-14.5) Platelet Count 171 x10^3/uL (140-400) Neutrophils (%) (Auto) 68 % (31-73) Lymphocytes (%) (Auto) 22 % (24-48) Monocytes (%) (Auto) 8 % (0-9) Eosinophils (%) (Auto) 1 % (0-3) Basophils (%) (Auto) 1 % (0-3) Neutrophils # (Auto) 4.3 x10^3uL (1.8-7.7) Lymphocytes # (Auto) 1.4 x10^3/uL (1.0-4.8) Monocytes # (Auto) 0.5 x10^3/uL (0.0-1.1) Eosinophils # (Auto) 0.0 x10^3/uL (0.0-0.7) Basophils # (Auto) 0.1 x10^3/uL (0.0-0.2) Sodium Level 138 mmol/L (136-145) Potassium Level 4.2 mmol/L (3.5-5.1) Chloride Level 103 mmol/L (98-107) Carbon Dioxide Level 26 mmol/L (21-32) Anion Gap 9 (6-14) Blood Urea Nitrogen 16 mg/dL (7-20) Creatinine 1.1 mg/dL (0.6-1.0) Estimated GFR (Cockcroft-Gault) 52.4 BUN/Creatinine Ratio 15 (6-20) Glucose Level 97 mg/dL (70-99) Calcium Level 9.4 mg/dL (8.5-10.1) Total Bilirubin 0.5 mg/dL (0.2-1.0) Aspartate Amino Transf (AST/SGOT) 34 U/L (15-37) Alanine Aminotransferase (ALT/SGPT) 45 U/L (14-59) Alkaline Phosphatase 238 U/L (46-116) Creatine Kinase 110 U/L (26-192) Troponin I Quantitative < 0.017 ng/mL (0-0.055) < 0.017 ng/mL (0-0.055) < 0.017 ng/mL (0-0.055) KC-Sce-S-Type Natriuretic Peptide 53 pg/mL (0-124) Total Protein 7.4 g/dL (6.4-8.2) Albumin 3.8 g/dL (3.4-5.0) Albumin/Globulin Ratio 1.1 (1.0-1.7) Coronavirus (COVID-19)(PCR) Negative (NEGATIVE) SARS-CoV-2 Antigen (Rapid) Negative (NEGATIVE) ASSESSMENT/PLAN Assessment/Plan 1. Chest pain, UA; AMI ruled out. 2. CAD s/p PCI/stent in 2017. Follows with [facility] cardiology, Dr. Figueroa. 3. Hypertension; controlled 4. Hyperlipidemia; statin 5. Anxiety, depression Recommendation Resume secondary prevention measures Given significant history/risk factors and recurrent pain, discussed further ischemic workup with stress test versus cardiac cath. Patient very anxious and prefers definitive evaluation with left heart cath. R/b/a discussed with patient and she is agreeable to proceed. Keep NPO Will transfer to [facility] for LHC. KIM HUYNH APRN May 23, 2021 08:39
--- NOTE | 2021-05-23 10:13 | NUR ---
PT TRANSFERRED TO [facility]. PT TAKEN VIA EMS. PT HAS HER HOME MEDICATIONS WITH HER WELL HER PERSONAL BELONGINGS. PT COMPLAINS OF NAUSEA AND ANXIETY. PT STABLE.
== END 2021-05-23 10:15 | disposition short-term general hospital (02) ==
LOC: ER 15:32 → 1 SOUTH 17:39 → INTOOBSV 17:39
PROVIDERS: ADMIT Internal Medicine; ATTEND Internal Medicine
DX: R07.89 Other chest pain (principal); E78.00 Pure hypercholesterolemia, unspecified; E78.5 Hyperlipidemia, unspecified; Z20.822 Contact with and (suspected) exposure to COVID-19; F32.9 Major depressive disorder, single episode, unspecified; F41.0 Panic disorder [episodic paroxysmal anxiety]; I10 Essential (primary) hypertension; I25.10 Atherosclerotic heart disease of native coronary artery without angina pectoris; I25.2 Old myocardial infarction; Z79.82 Long term (current) use of aspirin; Z87.891 Personal history of nicotine dependence; Z95.5 Presence of coronary angioplasty implant and graft
CPT/HCPCS: 36415; 71045; 71275; 80053; 82550; 83880; 84484; 85025; 87426; 93005; 99285; G0378; Q9967; U0003; G0379

== ENCOUNTER 2021-09-25 07:45 | Emergency (ER) | payer OTHER ==
[~2021-09-25] VITALS: Ht 167.6 cm; Wt 83.9 kg
[~2021-09-25 07:45] MED LIST changes: +BUSP10TA PO; +CILO100T PO; +CLIN-95 PO; -CLIN300C9 PO; +DOCU100T5 PO; +FLUO40CA2 PO; +QUET100T4 PO; +QUET50TA5 PO; +TRAZ150T49 PO
--- NOTE | 2021-09-25 08:25 | PHYS DOC ---
Past History Past Medical History: CAD, High Cholesterol, [place] Additional Past Medical Histor: panic attacks Past Surgical History: Cholecystectomy, Other Additional Past Surgical Histo: bile duct surgery, cardiac stents 2016, cardiac stents 2020 Smoking: Less than 1pk/day Alcohol Use: None General Adult EDM: Chief Complaint: CHEST PAIN HPI: HPI: 50-year-old female presents with chest pain. The patient has had nausea, vomiting, and headache for the last 1 to 2 days. She came in this morning because she started to have chest pain last night that continues today. It is a pressure sensation moderate intensity. She is scared because it feels like when she had a heart attack. She had 2 stents placed on the of last month. She denies fever or chills. Review of Systems: Review of Systems: Constitutional: Denies fever or chills Eyes: Denies change in visual acuity HENT: Denies nasal congestion or sore throat Respiratory: Denies cough or shortness of breath Cardiovascular: Denies chest pain or edema GI: Denies abdominal pain, nausea, vomiting, bloody stools or diarrhea : Denies dysuria Musculoskeletal: Denies back pain or joint pain Integument: Denies rash Neurologic: Denies headache, focal weakness or sensory changes Endocrine: Denies polyuria or polydipsia Lymphatic: Denies swollen glands Psychiatric: Denies depression or anxiety Allergies: Allergies: Allergies Coded Allergies Type Severity Reaction Last Updated Verified Penicillins Allergy Intermediate 03/08/21 Yes Sulfa (Sulfonamide Antibiotics) Allergy Intermediate 03/08/21 Yes cyproheptadine Allergy Intermediate 08/24/20 Yes Physical Exam: PE: Constitutional: Well developed, well nourished, no acute distress, non-toxic appearance. [] HENT: Normocephalic, atraumatic, bilateral external ears normal, oropharynx moist, no oral exudates, nose normal. [] Eyes: PERRLA, EOMI, conjunctiva normal, no discharge. [] Neck: Normal range of motion, no tenderness, supple, no stridor. [] Cardiovascular:Heart rate regular rhythm, no murmur [] Lungs & Thorax: Bilateral breath sounds clear to auscultation [] Abdomen: Bowel sounds normal, soft, no tenderness, no masses, no pulsatile masses. [] Skin: Warm, dry, no erythema, no rash. [] Back: No tenderness, no CVA tenderness. [] Extremities: No tenderness, no cyanosis, no clubbing, ROM intact, no edema. [] Neurologic: Alert and oriented X 3, normal motor function, normal sensory function, no focal deficits noted. [] Psychologic: Affect normal, judgement normal, mood normal. [] Current Patient Data: Vital Signs: Vital Signs Date Time Temp Pulse Resp B/P (MAP) Pulse Ox O2 Delivery O2 Flow Rate FiO2 09/25/21 07:52 98.0 96 16 122/57 (78) 97 Room Air EKG: EKG: Sinus rhythm, rate 99, leftward axis, no ST elevation or depression, right bundle branch block. [] Radiology/Procedures: Radiology/Procedures: [] Impressions: Exam Date: 09/25/2021 8:24 AM XR CHEST 1V Indication: Reason: CP / Spl. Instructions: / History: . Comparison: May 22, 2021 FINDINGS/ IMPRESSION: The aorta is calcified. Prominent pericardial fat pad is seen bilaterally. The cardiac silhouette and pulmonary vasculature are within normal limits. There is no focal consolidation, pleural effusion or pneumothorax. The visualized osseous structures are intact. Electronically signed by: Mary Waterman MD (09/25/2021 8:42 AM) [facility] DICTATED AND SIGNED BY: MARY WATERMAN MD DATE: 09/25/21 0837 CC: LINDA AGUILERA DO; PCP,NO ~MTH0 0 Heart Score: C/O Chest Pain: Yes HEART Score for Chest Pain: HEART Score for Chest Pain Response (Comments) Value History Moderately Suspicious 1 ECG Normal 0 Age >45 - < 65 1 Risk Factors >3 Risk Factors or Hx CAD 2 Troponin < Normal Limit 0 Total 4 Risk Factors: Risk Factors: DM, Current or recent (<one month) smoker, HTN, HLP, family history of CAD, obesity. Risk Scores: Score 0 - 3: 2.5% MACE over next 6 weeks - Discharge Home Score 4 - 6: 20.3% MACE over next 6 weeks - Admit for Clinical Observation Score 7 - 10: 72.7% MACE over next 6 weeks - Early Invasive Strategies Course & Med Decision Making: Course & Med Decision Making Pertinent Labs and Imaging studies reviewed. (See chart for details) The patient's EKG is unremarkable. Her labs are unremarkable. Her troponin is negative. It has been greater than 6 hours since her pain started so single troponin should be accurate. Her chest x-ray is negative for acute findings. She is negative for influenza and COVID. This does not appear to be life- threatening at this time. She is stable for discharge. [] Dragon Disclaimer: Dragon Disclaimer: This electronic medical record was generated, in whole or in part, using a voice recognition dictation system. Departure Departure: Impression: Primary Impression: Chest pain Additional Impression: Nausea & vomiting Disposition: 01 HOME / SELF CARE / HOMELESS Condition: STABLE Referrals: PCP,HE (PCP) Patient Instructions: Chest Pain (Nonspecific), [id number], Nausea and Vomiting, [id number] LINDA AGUILERA DO Sep 25, 2021 08:25
[2021-09-25] MEDS ORDERED: IV NORMAL SALINE 1,000ML 1,000 ML IV ONE (08:30)
[2021-09-25 08:31] LABS: BASO % 1 % (0-3); EOS # 0.1 x10^3/uL (0.0-0.7); EOS % 2 % (0-3); HEMATOCRIT 40.6 % (36.0-47.0); HEMOGLOBIN 13.6 g/dL (12.0-15.5); LYMPH # 1.2 x10^3/uL (1.0-4.8); LYMPH % 18 % (24-48); MEAN CORPUSCULAR HEMOGLOBIN 30 pg (25-35); MEAN CORPUSCULAR HGB CONC 34 g/dL (31-37); MEAN CORPUSCULAR VOLUME 90 fL (79-100); MONO # 0.5 x10^3/uL (0.0-1.1); MONO % 8 % (0-9); NEUT # 4.8 x10^3uL (1.8-7.7); NEUT % 72 % (31-73); PLATELET COUNT 209 x10^3/uL (140-400); RED BLOOD COUNT 4.49 x10^6/uL (3.50-5.40); RED CELL DISTRIBUTION WIDTH 14.3 % (11.5-14.5); WHITE BLOOD COUNT 6.7 x10^3/uL (4.0-11.0)
[2021-09-25 08:37] LABS: CALCIUM 8.7 mg/dL (8.5-10.1); GFR 58.5; POTASSIUM 3.5 mmol/L (3.5-5.1)
[2021-09-25 08:42] LABS: ALBUMIN 3.8 g/dL (3.4-5.0); ALBUMIN/GLOBULIN RATIO 1.1 (1.0-1.7); TOTAL BILIRUBIN 0.7 mg/dL (0.2-1.0); TOTAL PROTEIN 7.4 g/dL (6.4-8.2)
[2021-09-25] MEDS ORDERED: ASPIRIN CHEWABLE 81 MG TABLET. PO ONE (08:45)
[2021-09-25] MEDS ORDERED: diphenhydrAMINE 50 MG/ML VIAL IVP ONE (08:45)
[2021-09-25] MEDS ORDERED: METOCLOPRAMIDE HCL 10 MG/2 ML VIAL. IVP ONE (08:45)
--- NOTE | 2021-09-25 08:45 | RAD ---
Exam Date: 09/25/2021 8:24 AM XR CHEST 1V Indication: Reason: CP / Spl. Instructions: / History: . Comparison: May 22, 2021 FINDINGS/ IMPRESSION: The aorta is calcified. Prominent pericardial fat pad is seen bilaterally. The cardiac silhouette and pulmonary vasculature are within normal limits. There is no focal consolidation, pleural effusion or pneumothorax. The visualized osseous structures are intact. Electronically signed by: Adrián Waterman MD (09/25/2021 8:42 AM) [facility]
[2021-09-25 10:13] LABS: INFLUENZA A PATIENT NEGATIVE (NEGATIVE); INFLUENZA B PATIENT NEGATIVE (NEGATIVE)
--- NOTE | 2021-09-25 10:36 | EKG ---
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
[2021-09-25] MEDS ORDERED: MORPHINE SULFATE 2 MG/ML DISP.SYRIN. IV ONE (10:45)
[2021-09-25 11:04] VITALS: BP 116/72
== END 2021-09-25 11:07 | disposition home or self-care (01) ==
LOC: ER 07:45
DX: R07.89 Other chest pain (principal); R11.2 Nausea with vomiting, unspecified; R51.9 Headache, unspecified; I25.10 Atherosclerotic heart disease of native coronary artery without angina pectoris; E78.00 Pure hypercholesterolemia, unspecified; I25.2 Old myocardial infarction; Z20.822 Contact with and (suspected) exposure to COVID-19; Z88.0 Allergy status to penicillin; Z88.2 Allergy status to sulfonamides; Z88.8 Allergy status to other drugs, medicaments and biological substances
CPT/HCPCS: 36415; 71045; 80053; 84484; 85025; 87428; 93005; 96361; 96374; 96375; 99285; J1200; J2270; J2765; J7030

== ENCOUNTER 2021-11-08 13:53 | Emergency (ER) | payer OTHER ==
[~2021-11-08] VITALS: Ht 167.6 cm; Wt 83.9 kg
[2021-11-08 15:05] LABS: BASO % 1 % (0-3); EOS # 0.1 x10^3/uL (0.0-0.7); EOS % 1 % (0-3); HEMATOCRIT 39.8 % (36.0-47.0); HEMOGLOBIN 13.2 g/dL (12.0-15.5); LYMPH # 1.7 x10^3/uL (1.0-4.8); LYMPH % 21 % (24-48); MEAN CORPUSCULAR HEMOGLOBIN 30 pg (25-35); MEAN CORPUSCULAR HGB CONC 33 g/dL (31-37); MEAN CORPUSCULAR VOLUME 90 fL (79-100); MONO # 0.6 x10^3/uL (0.0-1.1); MONO % 8 % (0-9); NEUT # 5.6 x10^3uL (1.8-7.7); NEUT % 69 % (31-73); PLATELET COUNT 200 x10^3/uL (140-400); RED CELL DISTRIBUTION WIDTH 14.4 % (11.5-14.5)
[2021-11-08 15:12] LABS: CALCIUM 9.1 mg/dL (8.5-10.1); CREATININE 0.9 mg/dL (0.6-1.0); GFR 65.8
[2021-11-08 15:20] LABS: BACTERIA,URINE FEW /HPF (0-FEW); CLARITY,URINE HAZY; COLOR,URINE YELLOW; GLUCOSE,URINE NEG (NEG); NITRITE,URINE POS (NEG); RBC,URINE 0 /HPF (0-2); SQUAMOUS EPITHELIAL CELL,UR MOD /LPF; UROBILINOGEN,URINE 0.2 mg/dL (0.2 mg/dL); WBC,URINE >40 /HPF (0-4)
[2021-11-08 15:22] LABS: BARBITURATES NEG (NEG); BENZODIAZEPINES NEG (NEG); CANNABINOIDS NEG (NEG); COCAINE NEG (NEG); METHADONE NEG (NEG); OPIATES NEG (NEG); PHENCYCLIDINE NEG (NEG)
[2021-11-08 15:24] LABS: AMPHETAMINE/METHAMPHETAMINE NEG (NEG)
[2021-11-08] MEDS ORDERED: FOSFOMYCIN TROMETHAMINE 3 GM PACKET PO ONE (15:45)
--- NOTE | 2021-11-08 15:50 | PHYS DOC ---
Past History Past Medical History: CAD, High Cholesterol, [place] Additional Past Medical Histor: panic attacks (DILIP MENESES APRN) Past Surgical History: Cholecystectomy, Other Additional Past Surgical Histo: bile duct surgery, cardiac stents 2016, cardiac stents 2020 (DILIP MENESES APRN) Smoking: Less than 1pk/day Alcohol Use: None (DILIP MENESES APRN) General Adult EDM: Chief Complaint: SUICIDAL IDEATION HPI: HPI: Patient is a 51-year-old female who presents with suicidal ideation. Patient states that she is depressed and feels like she needs her meds changed. Patient does have a plan and wants to sit in her garage with her car running. Denies any attempts today. Patient has had attempts in the past. History of anxiety, depression. (DILIP MENESES APRN) Review of Systems: Review of Systems: ROS At least 10 ROS systems have been reviewed and are negative except as documented in the HPI. General: Negative except as outlined in HPI above. Skin: Negative except as outlined in HPI above. HEENT: Negative except as outlined in HPI above. Neck: Negative except as outlined in HPI above. Respiratory: Negative except as outlined in HPI above.. Cardiovascular: Negative except as outlined in HPI above. Abdomen: Negative except as outlined in HPI above. : Negative except as outlined in HPI above. Back/MSK: Negative except as outlined in HPI above. Neuro: Negative except as outlined in HPI above. Psych: Negative except as outlined in HPI above. (DILIP MENESES APRN) Allergies: Allergies: Allergies Coded Allergies Type Severity Reaction Last Updated Verified Penicillins Allergy Intermediate 03/08/21 Yes Sulfa (Sulfonamide Antibiotics) Allergy Intermediate 03/08/21 Yes cyproheptadine Allergy Intermediate 08/24/20 Yes (DILIP MENESES APRN) Physical Exam: PE: Constitutional: Well developed, well nourished, no acute distress, non-toxic appearance. [] HENT: Normocephalic, atraumatic, bilateral external ears normal, oropharynx moist, no oral exudates, nose normal. [] Eyes: PERRLA, EOMI, conjunctiva normal, no discharge. [] Neck: Normal range of motion, no tenderness, supple, no stridor. [] Cardiovascular:Heart rate regular rhythm, no murmur [] Lungs & Thorax: Bilateral breath sounds clear to auscultation [] Abdomen: Bowel sounds normal, soft, no tenderness, no masses, no pulsatile masses. [] Skin: Warm, dry, no erythema, no rash. [] Back: No tenderness, no CVA tenderness. [] Extremities: No tenderness, no cyanosis, no clubbing, ROM intact, no edema. [] Neurologic: Alert and oriented X 3, normal motor function, normal sensory function, no focal deficits noted. [] Psychologic: Flat affect affect, abnormal judgment, depressed mood (DILIP MENESES NUCLEAR PROCESS ENGINEER) Current Patient Data: Labs: Laboratory Tests Test 11/08/21 14:30 11/08/21 14:34 Urine Collection Type Clean catch Urine Color Yellow Urine Clarity Hazy Urine pH 6.0 Urine Specific [place] 1.015 Urine Protein Neg (NEG-TRACE) Urine Glucose (UA) Neg mg/dL (NEG) Urine Ketones (Stick) Neg mg/dL (NEG) Urine Blood Neg (NEG) Urine Nitrite Pos (NEG) Urine Bilirubin Neg (NEG) Urine Urobilinogen Dipstick 0.2 mg/dL (0.2 mg/dL) Urine Leukocyte Esterase Large (NEG) Urine RBC 0 /HPF (0-2) Urine WBC >40 /HPF (0-4) Urine Squamous Epithelial Cells Mod /LPF Urine Bacteria Few /HPF (0-FEW) Urine Test Pending Urine Opiates Screen Neg (NEG) Urine Methadone Screen Neg (NEG) Urine Barbiturates Neg (NEG) Urine Phencyclidine Screen Neg (NEG) Urine Amphetamine/Methamphetamine Neg (NEG) Urine Benzodiazepines Screen Neg (NEG) Urine Cocaine Screen Neg (NEG) Urine Cannabinoids Screen Neg (NEG) Urine Ethyl Alcohol Neg (NEG) White Blood Count 8.0 x10^3/uL (4.0-11.0) Red Blood Count 4.40 x10^6/uL (3.50-5.40) Hemoglobin 13.2 g/dL (12.0-15.5) Hematocrit 39.8 % (36.0-47.0) Mean Corpuscular Volume 90 fL (79-100) Mean Corpuscular Hemoglobin 30 pg (25-35) Mean Corpuscular Hemoglobin Concent 33 g/dL (31-37) Red Cell Distribution Width 14.4 % (11.5-14.5) Platelet Count 200 x10^3/uL (140-400) Neutrophils (%) (Auto) 69 % (31-73) Lymphocytes (%) (Auto) 21 % (24-48) L Monocytes (%) (Auto) 8 % (0-9) Eosinophils (%) (Auto) 1 % (0-3) Basophils (%) (Auto) 1 % (0-3) Neutrophils # (Auto) 5.6 x10^3uL (1.8-7.7) Lymphocytes # (Auto) 1.7 x10^3/uL (1.0-4.8) Monocytes # (Auto) 0.6 x10^3/uL (0.0-1.1) Eosinophils # (Auto) 0.1 x10^3/uL (0.0-0.7) Basophils # (Auto) 0.0 x10^3/uL (0.0-0.2) Sodium Level 141 mmol/L (136-145) Potassium Level 4.0 mmol/L (3.5-5.1) Chloride Level 105 mmol/L (98-107) Carbon Dioxide Level 27 mmol/L (21-32) Anion Gap 9 (6-14) Blood Urea Nitrogen 12 mg/dL (7-20) Creatinine 0.9 mg/dL (0.6-1.0) Estimated GFR (Cockcroft-Gault) 65.8 Glucose Level 89 mg/dL (70-99) Calcium Level 9.1 mg/dL (8.5-10.1) Vital Signs: Vital Signs Date Time Temp Pulse Resp B/P (MAP) Pulse Ox O2 Delivery O2 Flow Rate FiO2 11/08/21 14:17 97.6 78 16 134/76 (95) 98 Room Air (DILIP MENESES APRN) EKG: EKG: [] (DILIP MENESES APRN) Radiology/Procedures: Radiology/Procedures: [] (DILIP MENESES APRN) Heart Score: C/O Chest Pain: No Risk Factors: Risk Factors: DM, Current or recent (<one month) smoker, HTN, HLP, family history of CAD, obesity. Risk Scores: Score 0 - 3: 2.5% MACE over next 6 weeks - Discharge Home Score 4 - 6: 20.3% MACE over next 6 weeks - Admit for Clinical Observation Score 7 - 10: 72.7% MACE over next 6 weeks - Early Invasive Strategies (DILIP MENESES APRN) C/O Chest Pain: No (JONATHAN IBARRA MD) Course & Med Decision Making: Course & Med Decision Making Pertinent Labs and Imaging studies reviewed. (See chart for details) [] 51-year-old male presents with suicidal ideation. Patient does have a plan. Patient states that she wants to sit in her car in the garage to kill herself with carbon monoxide. Patient states that she does not think her meds are currently working and needs them adjusted. Work-up in ER consisted of EKG, labs, UA, UDS, Covid test. Urine positive for infection. Patient treated with fosfomycin due to not being able to take p.o. meds because of admission to psychiatric facility. Patient is requesting inpatient treatment. Spoke with Samra from the PAT team. PAT team came to consult with patient. Attempting to admit patient to [facility]. Waiting on a call back from staff. Patient is reporting some anxiety. Patient normally takes Klonopin twice daily. Patient given 1 dose to help with anxiety. Transfer of patient care to Dr. Ewing. (DILIP MENESES APRN) Course & Med Decision Making See PAT exam See Meneses report for details Awaiting PCR covid-= 2359 hrs. Impression: 1. Anxiety and panic disorder 2. Suicidal ideation 3. Depression 4. History of bipolar (CHARLIE EWING MD) Course & Med Decision Making 0600: Accepted patient care shift change, has been evaluated by PET. Information sent to [facility] but evening or night nurse supervisor was unable to accept, they will reevaluate during the day. (JONATHAN IBARRA MD) Course & Med Decision Making The patient had no complications during my shift. She transferred to [facility] by ambulance. (LINDA AGUILERA DO) Dragon Disclaimer: Dragon Disclaimer: This electronic medical record was generated, in whole or in part, using a voice recognition dictation system. (DILIP MENESES APRN) Departure Departure: Impression: Primary Impression: Suicidal ideations [facility] Condition: STABLE Referrals: PCP,NO (PCP) Attending Signature Attending Signature I have participated in the care of this patient and I have reviewed and agree with all pertinent clinical information above including history, exam, and recommendations. (CHARLIE EWING MD) Dragon Disclaimer This chart was dictated in whole or in part using Voice Recognition software in a busy, high-work load, and often noisy Emergency Department environment. It may contain unintended and wholly unrecognized errors or omissions. (CHARLIE EWING MD) DILIP MENESES APRN Nov 08, 2021 15:50 CHARLIE EWING MD Nov 08, 2021 23:52 JONATHAN IBARRA MD Nov 09, 2021 08:42 LINDA AGUILERA DO Nov 10, 2021 02:45
[2021-11-08 17:17] LABS: U PREG PATIENT NEGATIVE (NEG)
--- NOTE | 2021-11-08 17:20 | EKG ---
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
[2021-11-08] MEDS: clonazePAM 1 MG TABLET PO PRN (20:02)
[2021-11-09] MEDS ORDERED: PANTOPRAZOLE 40 MG TABLET. PO ONE (06:30)
[2021-11-09] MEDS ORDERED: busPIRone 5 MG TABLET. PO ONE ×2 (06:30→13:45)
[2021-11-09] MEDS ORDERED: ASPIRIN ENTERIC COATED 81 MG TABLET.DR. PO ONE (06:30)
[2021-11-09] MEDS ORDERED: CLOPIDOGREL BISULFATE 75 MG TABLET PO ONE (06:30)
[2021-11-09] MEDS: clonazePAM 1 MG TABLET PO PRN (06:37)
[2021-11-09] MEDS ORDERED: clonazePAM 1 MG TABLET PO SCH (09:00)
[2021-11-09] MEDS ORDERED: ACETAMINOPHEN 325 MG TABLET PO ONE (19:30)
[2021-11-09] MEDS ORDERED: busPIRone 5 MG TABLET. ONE (22:18)
[2021-11-09] MEDS ORDERED: traZODone 50 MG TABLET. ONE (22:19)
[2021-11-09 22:37] VITALS: BP 104/62
[2021-11-09] MEDS ORDERED: traZODone 50 MG TABLET. PO ONE (23:00)
[2021-11-09] MEDS ORDERED: ATORVASTATIN CALCIUM 20 MG TABLET ONE (23:31)
[2021-11-10] MEDS ORDERED: ATORVASTATIN CALCIUM 20 MG TABLET PO SCH (21:00)
== END 2021-11-10 01:12 | disposition short-term general hospital (02) ==
LOC: ER 13:53
DX: R45.851 Suicidal ideations (principal); F41.9 Anxiety disorder, unspecified; F31.9 Bipolar disorder, unspecified; I25.10 Atherosclerotic heart disease of native coronary artery without angina pectoris; E78.00 Pure hypercholesterolemia, unspecified; I25.2 Old myocardial infarction; F17.200 Nicotine dependence, unspecified, uncomplicated; Z20.822 Contact with and (suspected) exposure to COVID-19; Z88.0 Allergy status to penicillin; Z88.2 Allergy status to sulfonamides; Z88.8 Allergy status to other drugs, medicaments and biological substances
CPT/HCPCS: 36415; 80048; 80307; 81001; 81025; 85025; 87086; 87426; 93005; 99285; U0003

== ENCOUNTER 2021-12-22 06:32 | Emergency (ER) | payer OTHER ==
[~2021-12-22] VITALS: Ht 167.6 cm; Wt 82.8 kg
[2021-12-22 06:45] VITALS: BP 103/55
--- NOTE | 2021-12-22 07:20 | PHYS DOC ---
Past History Past Medical History: CAD, High Cholesterol, [place] Additional Past Medical Histor: panic attacks Past Surgical History: Cholecystectomy, Other Additional Past Surgical Histo: bile duct surgery, cardiac stents 2016, cardiac stents 2020 Smoking: Less than 1pk/day Alcohol Use: None General Adult EDM: Chief Complaint: NAUSEA/VOMITING/DIARRHEA HPI: HPI: Patient is a 49-year-old female coming in for 1 to 2 weeks of vomiting and diarrhea. Patient states she came today because she is feeling fatigued and having some chest pain that she thinks might be related to her anxiety. Patient states she is having 5-6 episodes of emesis and diarrhea each per day. Denies any sick contacts, recent travel, raw or undercooked foods. No fevers, cough, shortness of breath. Has had decreased urination. Review of Systems: Review of Systems: All other systems within normal limits except for as noted in the HPI Allergies: Allergies: Allergies Coded Allergies Type Severity Reaction Last Updated Verified Penicillins Allergy Intermediate 03/08/21 Yes Sulfa (Sulfonamide Antibiotics) Allergy Intermediate 03/08/21 Yes cyproheptadine Allergy Intermediate 08/24/20 Yes Physical Exam: PE: Constitutional: Well developed, well nourished, no acute distress, non-toxic appearance. [] HENT: Normocephalic, atraumatic, bilateral external ears normal, nose normal. [] Eyes: PERRLA, conjunctiva normal, no discharge. [] Neck: No rigidity, supple, no stridor. [] Cardiovascular: Tachycardic, regular rhythm, brisk cap refill [] Lungs & Thorax: Non labored symmetric respirations, no tachypnea or respiratory distress [] Abdomen: Soft, nondistended. Skin: Warm, dry, no erythema, no rash. [] Back: Unremarkable Extremities: No deformities, range of motion grossly intact, no lower extremity edema [] Neurologic: Alert and oriented X 3, no focal deficits noted. [] Psychologic: Affect normal, judgement normal, mood normal. [] EKG: EKG: Sinus tachycardia, heart rate under 1 bpm, left axis deviation, no STEMI [] Radiology/Procedures: Radiology/Procedures: [][address] [address] IMAGING REPORT Signed PATIENT: AAMNUEL RUFF IACCOUNT: [id number] : 1970 LOCATION: ER AGE: 51 SEX: F EXAM STATUS: REG ER ORD. PHYSICIAN: JONATHAN IBARRA MD REASON: abd pain PROCEDURE: CT ABD PELV W/ IV CONTRST ONLY PQRS Compliance Statement: One or more of the following individualized dose reduction techniques were utilized for this examination: 1. Automated exposure control 2. Adjustment of the mA and/or kV according to patient size 3. Use of iterative reconstruction technique CT ABDOMEN+PELVIS W Clinical Indication: Reason: abd pain nausea and vomiting. Comparison: CT abdomen and pelvis without contrast, August 02, 2020. Technique: Helical CT imaging of the abdomen and pelvis is performed after 75 cc of Omnipaque 300 IV contrast. Oral contrast not administered. Findings: Mild bilateral dependent atelectasis. Cardiac size is normal. Cholecystectomy. The visualized liver is homogeneous. The spleen, pancreas, adrenal glands, and abdominal aorta caliber are normal. Kidneys enhance symmetrically, no hydronephrosis. Small left renal cyst does not require follow- up. There are kissing bilateral common iliac artery stents. The stomach is unremarkable. There is no dilated small bowel. There is distal colon diverticulosis. The distal colon is not well distended accentuating the wall thickness. The appendix is normal. No colon wall thickening is convincingly seen. No abdominal adenopathy or free fluid. Uterus unremarkable. The urinary bladder is normal. No pelvic free fluid. No inguinal adenopathy. There is vacuum disc phenomenon of L5/S1. IMPRESSION: 1. No acute abdominal or pelvic abnormality. 2. Distal colon diverticulosis. Electronically signed by: Mathieu Dupree MD (12/22/2021 8:07 AM) [id number] DICTATED AND SIGNED BY: MATHIEU DUPREE MD DATE: 12/22/21 0758 CC: JONATHAN IBARRA MD; PCP,NO ~ Heart Score: C/O Chest Pain: Yes HEART Score for Chest Pain: HEART Score for Chest Pain Response (Comments) Value History Slighlty/Non-Suspicious 0 ECG Normal 0 Age >45 - < 65 1 Risk Factors >3 Risk Factors or Hx CAD 2 Troponin < Normal Limit 0 Total 3 Risk Factors: Risk Factors: DM, Current or recent (<one month) smoker, HTN, HLP, family history of CAD, obesity. Risk Scores: Score 0 - 3: 2.5% MACE over next 6 weeks - Discharge Home Score 4 - 6: 20.3% MACE over next 6 weeks - Admit for Clinical Observation Score 7 - 10: 72.7% MACE over next 6 weeks - Early Invasive Strategies Course & Med Decision Making: Course & Med Decision Making Pertinent Labs and Imaging studies reviewed. (See chart for details) Work-up unremarkable, patient feeling better. Patient did not have bowel movement in the emergency department to be able to send for testing. Will treat empirically since symptoms have been going on for more than a week [] Dragon Disclaimer: Dragon Disclaimer: This electronic medical record was generated, in whole or in part, using a voice recognition dictation system. Departure Departure: Impression: Primary Impression: Vomiting and diarrhea Disposition: HOME / SELF CARE / HOMELESS Condition: STABLE Referrals: PCP,NO (PCP) Patient Instructions: Diet for Diarrhea, Adult Scripts Ciprofloxacin Hcl (CIPRO) 500 Mg Tablet 1 TAB PO BID for antibiotic for 5 Days, #10 TAB 0 Refills Prov: JONATHAN IBARRA MD 12/22/21 Ondansetron (ONDANSETRON ODT) 4 Mg Tab.rapdis 1 TAB PO PRN Q6-8HRS PRN for NAUSEA, #16 TAB Prov: JONATHAN IBARRA MD 12/22/21 JONATHAN IBARRA MD Dec 22, 2021 07:20
[2021-12-22] MEDS ORDERED: ONDANSETRON PF 4 MG/2 ML VIAL. IVP ONE (07:30)
[2021-12-22] MEDS ORDERED: IV NORMAL SALINE 1,000ML 1,000 ML IV ONE (07:30)
[2021-12-22] MEDS ORDERED: IOHEXOL 300 MG/ML 75 ML VIAL. IV ONE (07:30)
[2021-12-22 07:42] LABS: BASO # 0.1 x10^3/uL (0.0-0.2); BASO % 1 % (0-3); EOS # 0.1 x10^3/uL (0.0-0.7); EOS % 1 % (0-3); HEMATOCRIT 44.1 % (36.0-47.0); HEMOGLOBIN 14.7 g/dL (12.0-15.5); LYMPH # 1.1 x10^3/uL (1.0-4.8); LYMPH % 19 % (24-48); MEAN CORPUSCULAR HEMOGLOBIN 30 pg (25-35); MEAN CORPUSCULAR HGB CONC 33 g/dL (31-37); MEAN CORPUSCULAR VOLUME 89 fL (79-100); MONO # 0.4 x10^3/uL (0.0-1.1); MONO % 7 % (0-9); NEUT # 4.1 x10^3uL (1.8-7.7); NEUT % 72 % (31-73); PLATELET COUNT 188 x10^3/uL (140-400); RED BLOOD COUNT 4.95 x10^6/uL (3.50-5.40); RED CELL DISTRIBUTION WIDTH 14.5 % (11.5-14.5); WHITE BLOOD COUNT 5.7 x10^3/uL (4.0-11.0)
[2021-12-22 07:52] LABS: CALCIUM 9.3 mg/dL (8.5-10.1); CREATININE 1.2 mg/dL (0.6-1.0); GFR 47.2
[2021-12-22 07:59] LABS: ALBUMIN 3.9 g/dL (3.4-5.0); ALBUMIN/GLOBULIN RATIO 1.1 (1.0-1.7); MAGNESIUM 1.7 mg/dL (1.8-2.4); PHOSPHORUS 3.6 mg/dL (2.6-4.7); TOTAL BILIRUBIN 0.8 mg/dL (0.2-1.0); TOTAL PROTEIN 7.5 g/dL (6.4-8.2)
--- NOTE | 2021-12-22 08:10 | RAD ---
PQRS Compliance Statement: One or more of the following individualized dose reduction techniques were utilized for this examinat ion: 1. Automated exposure control 2. Adjustment of the mA and/or kV according to patient size 3. Use of iterative reconstruction technique CT ABDOMEN+PELVIS W Clinical Indication: Reason: abd pain nausea and vomiting. Comparison: CT abdomen and pelvis without contrast, August 02, 2020. Technique: Helical CT imaging of the abdomen and pelvis is performed after 75 cc of Omnipaque 300 IV contrast. Oral contrast not administered. Findings: Mild bilateral dependent atelectasis. Cardiac size is normal. Cholecystectomy. The visualized liver is homogeneous. The spleen, pancreas, adrenal glands, and abdom inal aorta caliber are normal. Kidneys enhance symmetrically, no hydronephrosis. Small left renal cys t does not require follow-up. There are kissing bilateral common iliac artery stents. The stomach is unremarkable. There is no dila ana cristina small bowel. There is distal colon diverticulosis. The distal colon is not well distended accentu ating the wall thickness. The appendix is normal. No colon wall thickening is convincingly seen. No a bdominal adenopathy or free fluid. Uterus unremarkable. The urinary bladder is normal. No pelvic free fluid. No inguinal adenopathy. There is vacuum disc phenomenon of L5/S1. IMPRESSION: 1. No acute abdominal or pelvic abnormality. 2. Distal colon diverticulosis. Electronically signed by: Milton Dupree MD (12/22/2021 8:07 AM) [id number]
--- NOTE | 2021-12-22 08:39 | EKG ---
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
[2021-12-22] MEDS ORDERED: hydrOXYzine HCL 25 MG TABLET PO PRN (09:30)
[2021-12-22 09:33] LABS: BACTERIA,URINE 0 /HPF (0-FEW); CLARITY,URINE CLEAR; COLOR,URINE YELLOW; GLUCOSE,URINE NEG (NEG); NITRITE,URINE NEG (NEG); SQUAMOUS EPITHELIAL CELL,UR FEW /LPF; UROBILINOGEN,URINE 0.2 mg/dL (0.2 mg/dL)
[2021-12-22] MEDS ORDERED: CIPR500T94 PO (09:50)
[2021-12-22] MEDS ORDERED: ONDA4TAB12 PO (09:50)
== END 2021-12-22 10:15 | disposition home or self-care (01) ==
LOC: ER 06:32
DX: R11.10 Vomiting, unspecified (principal); R19.7 Diarrhea, unspecified; R53.83 Other fatigue; R07.89 Other chest pain; I25.10 Atherosclerotic heart disease of native coronary artery without angina pectoris; E78.00 Pure hypercholesterolemia, unspecified; I25.2 Old myocardial infarction; F17.200 Nicotine dependence, unspecified, uncomplicated; Z90.49 Acquired absence of other specified parts of digestive tract; Z88.0 Allergy status to penicillin; Z88.2 Allergy status to sulfonamides; Z88.8 Allergy status to other drugs, medicaments and biological substances
CPT/HCPCS: 36415; 74177; 80053; 81001; 83605; 83690; 83735; 84100; 84484; 85025; 93005; 96361; 96374; 99285; J2405; J7030; Q9967

== ENCOUNTER 2021-12-31 13:28 | Observation (INO) | payer OTHER ==
[~2021-12-31] VITALS: Ht 167.6 cm; Wt 80.7 kg
[~2021-12-31 13:28] MED LIST changes: +CIPR500T94 PO; +ONDA4TAB12 PO
--- NOTE | 2021-12-31 13:53 | PHYS DOC ---
Past History Past Medical History: CAD, High Cholesterol, CA Additional Past Medical Histor: panic attacks Past Surgical History: Cholecystectomy, Other Additional Past Surgical Histo: bile duct surgery, cardiac stents 2016, cardiac stents 2020, stnet in legs Smoking: Less than 1pk/day Alcohol Use: None General Adult EDM: Chief Complaint: SUICIDAL IDEATION HPI: HPI: Patient is a 51-year-old female who presents to the emergency department for suicidal ideation. Patient reports that she went to the [facility] to follow-up with her crisis center but they stated that they no longer have the crisis center in service and she will need to go to the emergency department. Patient's plan is to kill herself by carbon monoxide poisoning or "cutting herself". Patient denies any previous suicide attempts. She denies any homicidal ideation. Patient has had inpatient psychiatric treatment previously. Patient has a history of anxiety, depression and bipolar disorder. She takes Prozac, trazodone and BuSpar. She reports that she has been taking these medications as directed. Patient also has a history of hyperlipidemia and CA with stent placement. Patient is reporting midsternal chest pain that radiates straight through to her back that started this morning. She describes it as a pressure. She is also reporting nausea. She denies vomiting and shortness of breath. Review of Systems: Review of Systems: Respiratory: See HPI Cardiovascular: See HPI GI: See HPI Psychiatric: See HPI Allergies: Allergies: Allergies Coded Allergies Type Severity Reaction Last Updated Verified Penicillins Allergy Intermediate 03/08/21 Yes Sulfa (Sulfonamide Antibiotics) Allergy Intermediate 03/08/21 Yes cyproheptadine Allergy Intermediate 08/24/20 Yes Physical Exam: PE: Constitutional: Well developed, well nourished, no acute distress, non-toxic appearance. [] HENT: Normocephalic, atraumatic, bilateral external ears normal, oropharynx moist, no oral exudates, nose normal. [] Eyes: PERRL, EOMI, conjunctiva normal, no discharge. [] Neck: Normal range of motion, no tenderness, supple, no stridor. [] Cardiovascular:Heart rate regular rhythm, no murmur, chest pain reproducible with palpation [] Lungs & Thorax: Bilateral breath sounds clear to auscultation [] Abdomen: Bowel sounds normal, soft, no tenderness, no masses, no pulsatile masses. [] Skin: Warm, dry, no erythema, no rash. [] Back: No tenderness, no CVA tenderness. [] Extremities: No tenderness, no cyanosis, no clubbing, ROM intact, no edema. [] Neurologic: Alert and oriented X 3, normal motor function, normal sensory function, no focal deficits noted. [] Psychologic: Affect normal, judgement normal, mood normal. [] Current Patient Data: Labs: Laboratory Tests Test 12/31/21 13:45 12/31/21 13:55 12/31/21 14:06 Urine Collection Type Unknown Urine Color Yellow Urine Clarity Hazy Urine pH 7.0 Urine Specific Industry 1.015 Urine Protein Neg Urine Glucose (UA) Neg mg/dL Urine Ketones (Stick) Neg mg/dL Urine Blood Trace Urine Nitrite Neg Urine Bilirubin Neg Urine Urobilinogen Dipstick 0.2 mg/dL Urine Leukocyte Esterase Neg Urine RBC 0 /HPF Urine WBC 1-4 /HPF Urine Squamous Epithelial Cells Mod /LPF Urine Bacteria Mod /HPF Urine Opiates Screen Neg Urine Methadone Screen Neg Urine Barbiturates Neg Urine Phencyclidine Screen Neg Urine Amphetamine/Methamphetamine Neg Urine Benzodiazepines Screen Neg Urine Cocaine Screen Neg Urine Cannabinoids Screen Neg Urine Ethyl Alcohol Neg White Blood Count 7.5 x10^3/uL Red Blood Count 4.81 x10^6/uL Hemoglobin 14.2 g/dL Hematocrit 43.0 % Mean Corpuscular Volume 89 fL Mean Corpuscular Hemoglobin 30 pg Mean Corpuscular Hemoglobin Concent 33 g/dL Red Cell Distribution Width 14.4 % Platelet Count 197 x10^3/uL Neutrophils (%) (Auto) 72 % Lymphocytes (%) (Auto) 19 % Monocytes (%) (Auto) 8 % Eosinophils (%) (Auto) 1 % Basophils (%) (Auto) 0 % Neutrophils # (Auto) 5.4 x10^3uL Lymphocytes # (Auto) 1.5 x10^3/uL Monocytes # (Auto) 0.6 x10^3/uL Eosinophils # (Auto) 0.0 x10^3/uL Basophils # (Auto) 0.0 x10^3/uL Sodium Level 139 mmol/L Potassium Level 4.0 mmol/L Chloride Level 102 mmol/L Carbon Dioxide Level 26 mmol/L Anion Gap 11 Blood Urea Nitrogen 11 mg/dL Creatinine 1.2 mg/dL Estimated GFR (Cockcroft-Gault) 47.2 BUN/Creatinine Ratio 9 Glucose Level 90 mg/dL Calcium Level 9.8 mg/dL Total Bilirubin 0.8 mg/dL Aspartate Amino Transf (AST/SGOT) 32 U/L Alanine Aminotransferase (ALT/SGPT) 41 U/L Alkaline Phosphatase 176 U/L Troponin I High Sensitivity 6 ng/L Total Protein 7.3 g/dL Albumin 4.0 g/dL Albumin/Globulin Ratio 1.2 Salicylates Level < 2.8 mg/dL Salicylate Last Dose Date Unknown Salicylate Last Dose Time Unknown Acetaminophen Level < 2 mcg/mL Acetaminophen Last Dose Date Unknown Acetaminophen Last Dose Time Unknown SARS-CoV-2 Antigen (Rapid) Negative Current Medications Medications (Trade) Dose Ordered Sig/Christina Route PRN Reason Start Time Stop Time Status Last Admin Dose Admin Buspirone HCl (Buspar) 20 mg 1X ONCE PO 12/31/21 15:15 12/31/21 15:16 DC Vital Signs: Vital Signs Date Time Temp Pulse Resp B/P (MAP) Pulse Ox O2 Delivery O2 Flow Rate FiO2 12/31/21 13:37 98.2 102 16 130/75 (93) 100 Room Air EKG: EKG: EKG performed by ER staff at 1402 shows sinus rhythm with a rate of 84, QTc of 429, no STEMI read by Dr. Hoskins 1406 [] Radiology/Procedures: Radiology/Procedures: []REASON: cp PROCEDURE: PORTABLE CHEST 1V XR CHEST 1V History: Reason: cp / Spl. Instructions: / History: Comparison: September 25, 2021 Findings: No consolidation or pleural effusion. Normal heart size. No pneumothorax. Impression: 1. No acute cardiopulmonary process. Electronically signed by: Paul Mauro DO (12/31/2021 2:11 PM) [facility] DICTATED AND SIGNED BY: PAUL MAURO DO DATE: 12/31/21 1411 CC: MACIEJ PERALTA APRN; PCP,NO; RAISSA HOSKINS MD ~ Heart Score: C/O Chest Pain: Yes HEART Score for Chest Pain: HEART Score for Chest Pain Response (Comments) Value History Moderately Suspicious 1 ECG Nonspecific Repolarizatio 1 Age >45 - < 65 1 Risk Factors >3 Risk Factors or Hx CAD 2 Troponin < Normal Limit 0 Total 5 Risk Factors: Risk Factors: DM, Current or recent (<one month) smoker, HTN, HLP, family history of CAD, obesity. Risk Scores: Score 0 - 3: 2.5% MACE over next 6 weeks - Discharge Home Score 4 - 6: 20.3% MACE over next 6 weeks - Admit for Clinical Observation Score 7 - 10: 72.7% MACE over next 6 weeks - Early Invasive Strategies Course & Med Decision Making: Course & Med Decision Making Pertinent Labs and Imaging studies reviewed. (See chart for details) Patient presents to the emergency department for suicidal ideation. Blood work obtained for medical clearance. Patient placed on one-to-one observation. Suicide precautions initiated. During triage, patient reports that she is experiencing midsternal chest pain. Patient does have history of CA with stent placement. She also is a current smoker. Patient's troponin was not elevated. Nonspecific changes noted in her EKG. Patient's heart score is 5. Patient will need to be admitted for serial troponins. I discussed these findings with Dr. Reddy who agreed to admit the patient under his services. ER bridge orders placed at this time 1521. Discussed these findings with patient and she is agreeable to admission. Holly Disclaimer: Holly Disclaimer: This electronic medical record was generated, in whole or in part, using a voice recognition dictation system. Departure Departure: Impression: Primary Impression: Chest pain Qualified Codes: R07.9 - Chest pain, unspecified Disposition: ADMITTED INPATIENT Admitting Physician: Rustam Reddy Condition: STABLE Referrals: PCPHE (PCP) MACIEJ PERALTA APRN Dec 31, 2021 13:53
--- NOTE | 2021-12-31 14:08 | EKG ---
[address] [address] Test Date: 2021-12-31 Test Time: 14:02:08 Pat Name: AMANUEL RUFF Department: Room: Gender: F Podiatric Surgeon: SOBIA : 1970 Requested By: MACIEJ PERALTA Order Number: [id number] Reading MD: Martin Sevilla Measurements Intervals Dime Box Rate: 84 P: 49 PA: 126 QRS: -24 QRSD: 82 T: 28 QT: 360 QTc: 429 Interpretive Statements SINUS RHYTHM LEFTWARD AXIS Electronically Signed On 01-01-2022 18:10:00 CDT by Martin Sevilla
--- NOTE | 2021-12-31 14:14 | RAD ---
XR CHEST 1V History: Reason: cp / Spl. Instructions: / History: Comparison: September 25, 2021 Findings: No consolidation or pleural effusion. Normal heart size. No pneumothorax. Impression: 1. No acute cardiopulmonary process. Electronically signed by: Paul Laurent DO (12/31/2021 2:11 PM) [facility]
[2021-12-31 14:26] LABS: BASO % 0 % (0-3); EOS % 1 % (0-3); HEMOGLOBIN 14.2 g/dL (12.0-15.5); LYMPH # 1.5 x10^3/uL (1.0-4.8); LYMPH % 19 % (24-48); MEAN CORPUSCULAR HEMOGLOBIN 30 pg (25-35); MEAN CORPUSCULAR HGB CONC 33 g/dL (31-37); MEAN CORPUSCULAR VOLUME 89 fL (79-100); MONO # 0.6 x10^3/uL (0.0-1.1); MONO % 8 % (0-9); NEUT # 5.4 x10^3uL (1.8-7.7); NEUT % 72 % (31-73); PLATELET COUNT 197 x10^3/uL (140-400); RED BLOOD COUNT 4.81 x10^6/uL (3.50-5.40); RED CELL DISTRIBUTION WIDTH 14.4 % (11.5-14.5); WHITE BLOOD COUNT 7.5 x10^3/uL (4.0-11.0)
[2021-12-31 14:38] LABS: CALCIUM 9.8 mg/dL (8.5-10.1); CREATININE 1.2 mg/dL (0.6-1.0); GFR 47.2
[2021-12-31 14:40] VITALS: BP 124/77
[2021-12-31 14:42] LABS: ACETAMIN < 2 mcg/mL (10-30)
[2021-12-31 14:43] LABS: BARBITURATES NEG (NEG); BENZODIAZEPINES NEG (NEG); CANNABINOIDS NEG (NEG); COCAINE NEG (NEG); METHADONE NEG (NEG); OPIATES NEG (NEG); PHENCYCLIDINE NEG (NEG)
[2021-12-31 14:43] LABS: ALBUMIN/GLOBULIN RATIO 1.2 (1.0-1.7); SALIC < 2.8 mg/dL (2.8-20.0); TOTAL BILIRUBIN 0.8 mg/dL (0.2-1.0); TOTAL PROTEIN 7.3 g/dL (6.4-8.2)
[2021-12-31 14:47] LABS: AMPHETAMINE/METHAMPHETAMINE NEG (NEG)
[2021-12-31 15:13] LABS: CLARITY,URINE HAZY; COLOR,URINE YELLOW; GLUCOSE,URINE NEG (NEG)
[2021-12-31 15:14] LABS: BACTERIA,URINE MOD /HPF (0-FEW); NITRITE,URINE NEG (NEG); RBC,URINE 0 /HPF (0-2); SQUAMOUS EPITHELIAL CELL,UR MOD /LPF; UROBILINOGEN,URINE 0.2 mg/dL (0.2 mg/dL)
[2021-12-31] MEDS ORDERED: busPIRone 5 MG TABLET. PO ONE (15:15)
[2021-12-31] MEDS ORDERED: NITROGLYCERIN SUBLINGUAL 0.4 MG BOTTLE OF 25. SL PRN (15:30)
[2021-12-31] MEDS ORDERED: ASPIRIN CHEWABLE 81 MG TABLET. PO ONE (15:30)
[2021-12-31 15:56] VITALS: BP 124/63
[2021-12-31 16:11] VITALS: BP 119/66
[2021-12-31 17:12] VITALS: BP 116/63
[2021-12-31] MEDS ORDERED: HYDR50TA PO (17:31)
[2021-12-31] MEDS ORDERED: ASPI-889 PO (17:31)
[2021-12-31] MEDS ORDERED: LAMO100T8 PO (17:31)
[2021-12-31] MEDS ORDERED: CLON1TAB PO (17:31)
[2021-12-31] MEDS ORDERED: TRAZ-125 PO (17:31)
[2021-12-31] MEDS ORDERED: CLOP75TA PO (17:31)
[2021-12-31] MEDS ORDERED: RISP1TAB88 PO (17:31)
[2021-12-31] MEDS ORDERED: ATOR80TA72 PO (17:31)
[2021-12-31] MEDS: IV NORMAL SALINE 1,000ML 1,000 ML IV SCH (18:06)
[2021-12-31] MEDS ORDERED: ONDANSETRON PF 4 MG/2 ML VIAL. ONE (18:14)
[2021-12-31] MEDS: ONDANSETRON PF 4 MG/2 ML VIAL. IVP PRN (18:22)
[2021-12-31 19:00] VITALS: BP 102/68
[2021-12-31] MEDS ORDERED: TEMAZEPAM 15 MG CAPSULE PO PRN (19:30)
[2022-01-01 05:49] VITALS: BP 97/64
[2022-01-01] MEDS: IV NORMAL SALINE 1,000ML 1,000 ML IV SCH (05:49)
[2022-01-01] MEDS ORDERED: PANTOPRAZOLE 40 MG TABLET. PO SCH (07:00)
[2022-01-01 07:27] LABS: BASO % 1 % (0-3); EOS # 0.1 x10^3/uL (0.0-0.7); EOS % 1 % (0-3); HEMATOCRIT 38.1 % (36.0-47.0); HEMOGLOBIN 12.5 g/dL (12.0-15.5); LYMPH # 1.2 x10^3/uL (1.0-4.8); LYMPH % 21 % (24-48); MEAN CORPUSCULAR HEMOGLOBIN 29 pg (25-35); MEAN CORPUSCULAR HGB CONC 33 g/dL (31-37); MEAN CORPUSCULAR VOLUME 89 fL (79-100); MONO # 0.4 x10^3/uL (0.0-1.1); MONO % 7 % (0-9); NEUT # 4.1 x10^3uL (1.8-7.7); NEUT % 70 % (31-73); PLATELET COUNT 171 x10^3/uL (140-400); RED BLOOD COUNT 4.28 x10^6/uL (3.50-5.40); RED CELL DISTRIBUTION WIDTH 14.6 % (11.5-14.5); WHITE BLOOD COUNT 5.9 x10^3/uL (4.0-11.0)
[2022-01-01 07:42] LABS: ALBUMIN 3.1 g/dL (3.4-5.0); ALBUMIN/GLOBULIN RATIO 1.1 (1.0-1.7); CALCIUM 8.1 mg/dL (8.5-10.1); GFR 58.2; POTASSIUM 4.3 mmol/L (3.5-5.1); TOTAL BILIRUBIN 0.7 mg/dL (0.2-1.0)
--- NOTE | 2022-01-01 08:13 | PDOC2 ---
KIM HUYNH GEORGE 01/01/22 0813: CARDIAC CONSULT DATE OF CONSULT DOS: DATE: 01/01/22 TIME: 08:09 REASON FOR CONSULT Reason for Consult Chest pain REFERRING PHYSICIAN Referring Physician Dr. Butts SOURCE Source: Chart review, Patient HPI History of Present Illness This is a 51 yo female who presented to the ED with suicidal ideations. Had some complaints of chest pain, which prompted this consult. Patient reports dull pressure in her central chest that began yesterday morning. Did not radiated. No associated shortness of breath, palpitations, diaphoresis, or dizziness. Does reports some nausea. Has been feeling very anxious recently and has had SI for which she is on 1:1 presently. Reports compliance with medications including ASA/Plavix, and statin therapy. PAST MEDICAL HISTORY Past Medical History Cardiovascular: CAD, HTN, hyperipidemia GI: GERD Psych: Anxiety, Depression PAST SURGICAL HISTORY Past Surgical History: Cholecystectomy FAMILY HISTORY Family History Diabetes, Heart Disease, Hypertension SOCIAL HISTORY Social History Smoke: Quit ALCOHOL: none Drugs: None Lives: with Family CURRENT MEDICATIONS Current Medications Current Medications Buspirone HCl (Buspar) 20 mg 1X ONCE PO Last administered on 12/31/21at 15:49; Start 12/31/21 at 15:15; Stop 12/31/21 at 15:16; Status DC Sodium Chloride 1,000 ml @ 100 mls/hr Q10H IV Last administered on 01/01/22at 05:49; Start 12/31/21 at 15:30; Stop 01/01/22 at 15:29 Nitroglycerin (Nitrostat) 0.4 mg PRN Q5MIN PRN SL CHEST PAIN; Start 12/31/21 at 15:30; Stop 01/01/22 at 15:29 Aspirin (Aspirin Chewable) 324 mg 1X ONCE PO Last administered on 12/31/21at 16:10; Start 12/31/21 at 15:30; Stop 12/31/21 at 15:31; Status DC Clopidogrel Bisulfate (Plavix) 75 mg DAILY PO Last administered on 01/01/22at 08:01; Start 01/01/22 at 09:00 Pantoprazole Sodium (Protonix) 40 mg DAILY07 PO Last administered on 01/01/22at 08:00; Start 01/01/22 at 07:00 Fluoxetine HCl (PROzac) 80 mg DAILY PO Last administered on 01/01/22at 08:01; Start 01/01/22 at 09:00 Ondansetron HCl (Zofran) 4 mg STK-MED ONCE .ROUTE ; Start 12/31/21 at 18:14; Stop 12/31/21 at 18:15; Status DC Ondansetron HCl (Zofran) 4 mg PRN Q6HRS PRN IVP NAUSEA/VOMITING Last administered on 12/31/21at 18:22; Start 12/31/21 at 18:30 Temazepam (Restoril) 30 mg PRN QHS PRN PO INSOMNIA Last administered on 12/31/21at 20:32; Start 12/31/21 at 19:30 Active Scripts Active Ondansetron Odt (Ondansetron) 4 Mg Tab.rapdis 1 Tab PO PRN Q6-8HRS PRN Reported Klonopin (Clonazepam) 1 Mg Tablet 1 Mg PO PRN BID PRN Lamotrigine 100 Mg Tablet 1 Tab PO DAILY Risperidone 1 Mg Tablet 1 Tab PO QHS Hydroxyzine Hcl 50 Mg Tablet 1 Tab PO BID Aspirin Ec (Aspirin) 81 Mg Tablet.dr 1 Tab PO DAILY Trazodone Hcl 100 Mg Tablet 2 Tab PO PRN QHS PRN Clopidogrel (Clopidogrel Bisulfate) 75 Mg Tablet 1 Tab PO DAILY Atorvastatin Calcium 80 Mg Tablet 1 Tab PO DAILY Seroquel (Quetiapine Fumarate) 100 Mg Tablet 200 Mg PO QHS LAST DOSE GIVEN: DATE: TIME: NEXT DOSE DUE: DATE: TIME: Seroquel (Quetiapine Fumarate) 50 Mg Tablet 50 Mg PO BID94 LAST DOSE GIVEN: DATE: TIME: NEXT DOSE DUE: DATE: TIME: Docusate Sodium 100 Mg Tablet 1 Tab PO BID LAST DOSE GIVEN: DATE: TIME: NEXT DOSE DUE: DATE: TIME: Buspirone Hcl 10 Mg Tablet 20 Mg PO BID LAST DOSE GIVEN: DATE: TIME: NEXT DOSE DUE: DATE: TIME: Trazodone Hcl 150 Mg Tablet 150 Tab PO QHS LAST DOSE GIVEN: DATE: TIME: NEXT DOSE DUE: DATE: TIME: Fluoxetine Hcl 40 Mg Capsule 80 Mg PO DAILY LAST DOSE GIVEN: DATE: TIME: NEXT DOSE DUE: DATE: TIME: Atorvastatin Calcium 80 Mg Tablet 80 Mg PO QHS LAST DOSE GIVEN: DATE: TIME: NEXT DOSE DUE: DATE: TIME: Aspirin 81 Mg Tab.chew 81 Mg PO DAILY LAST DOSE GIVEN: DATE: TIME: NEXT DOSE DUE: DATE: TIME: Pantoprazole Sodium 40 Mg Tablet.dr 40 Mg PO DAILY07 LAST DOSE GIVEN: DATE: TIME: NEXT DOSE DUE: DATE: TIME: ALLERGIES Allergies: Coded Allergies: Penicillins (Verified Allergy, Intermediate, 03/08/21) Sulfa (Sulfonamide Antibiotics) (Verified Allergy, Intermediate, 03/08/21) cyproheptadine (Verified Allergy, Intermediate, 08/24/20) caused her HR and her BP to go up ROS Review of Systems 14 point ROS conducted with pertinent positives noted above in HPI PHYSICAL EXAM Physical Exam General: Alert, Oriented X3, Cooperative, No acute distress HEENT: Atraumatic Lungs: Clear to auscultation Heart: Regular rate Abdomen: Soft, No tenderness Extremities: No edema, Normal pulses Skin: No breakdown Neuro: Normal speech, Sensation intact Psych/Mental Status: Mental status NL, flat, depressed affect MUSCULOSKELETAL: Osteoarthritic changes both hands VITALS Vital Signs Vital Signs Date Time Temp Pulse Resp B/P (MAP) Pulse Ox O2 Delivery O2 Flow Rate FiO2 01/01/22 05:49 97.9 76 18 97/64 (75) 93 Room Air LABS LABS Laboratory Tests Test 12/31/21 13:45 12/31/21 13:55 12/31/21 14:06 12/31/21 15:50 Urine Collection Type Unknown Urine Color Yellow Urine Clarity Hazy Urine pH 7.0 Urine Specific [place] 1.015 Urine Protein Neg (NEG-TRACE) Urine Glucose (UA) Neg mg/dL (NEG) Urine Ketones (Stick) Neg mg/dL (NEG) Urine Blood Trace (NEG) Urine Nitrite Neg (NEG) Urine Bilirubin Neg (NEG) Urine Urobilinogen Dipstick 0.2 mg/dL (0.2 mg/dL) Urine Leukocyte Esterase Neg (NEG) Urine RBC 0 /HPF (0-2) Urine WBC 1-4 /HPF (0-4) Urine Squamous Epithelial Cells Mod /LPF Urine Bacteria Mod /HPF (0-FEW) Urine Opiates Screen Neg (NEG) Urine Methadone Screen Neg (NEG) Urine Barbiturates Neg (NEG) Urine Phencyclidine Screen Neg (NEG) Urine Amphetamine/Methamphetamine Neg (NEG) Urine Benzodiazepines Screen Neg (NEG) Urine Cocaine Screen Neg (NEG) Urine Cannabinoids Screen Neg (NEG) Urine Ethyl Alcohol Neg (NEG) White Blood Count 7.5 x10^3/uL (4.0-11.0) Red Blood Count 4.81 x10^6/uL (3.50-5.40) Hemoglobin 14.2 g/dL (12.0-15.5) Hematocrit 43.0 % (36.0-47.0) Mean Corpuscular Volume 89 fL (79-100) Mean Corpuscular Hemoglobin 30 pg (25-35) Mean Corpuscular Hemoglobin Concent 33 g/dL (31-37) Red Cell Distribution Width 14.4 % (11.5-14.5) Platelet Count 197 x10^3/uL (140-400) Neutrophils (%) (Auto) 72 % (31-73) Lymphocytes (%) (Auto) 19 % (24-48) Monocytes (%) (Auto) 8 % (0-9) Eosinophils (%) (Auto) 1 % (0-3) Basophils (%) (Auto) 0 % (0-3) Neutrophils # (Auto) 5.4 x10^3uL (1.8-7.7) Lymphocytes # (Auto) 1.5 x10^3/uL (1.0-4.8) Monocytes # (Auto) 0.6 x10^3/uL (0.0-1.1) Eosinophils # (Auto) 0.0 x10^3/uL (0.0-0.7) Basophils # (Auto) 0.0 x10^3/uL (0.0-0.2) Sodium Level 139 mmol/L (136-145) Potassium Level 4.0 mmol/L (3.5-5.1) Chloride Level 102 mmol/L (98-107) Carbon Dioxide Level 26 mmol/L (21-32) Anion Gap 11 (6-14) Blood Urea Nitrogen 11 mg/dL (7-20) Creatinine 1.2 mg/dL (0.6-1.0) Estimated GFR (Cockcroft-Gault) 47.2 BUN/Creatinine Ratio 9 (6-20) Glucose Level 90 mg/dL (70-99) Calcium Level 9.8 mg/dL (8.5-10.1) Total Bilirubin 0.8 mg/dL (0.2-1.0) Aspartate Amino Transf (AST/SGOT) 32 U/L (15-37) Alanine Aminotransferase (ALT/SGPT) 41 U/L (14-59) Alkaline Phosphatase 176 U/L (46-116) Troponin I High Sensitivity 6 ng/L (4-50) 6 ng/L (4-50) Total Protein 7.3 g/dL (6.4-8.2) Albumin 4.0 g/dL (3.4-5.0) Albumin/Globulin Ratio 1.2 (1.0-1.7) Salicylates Level < 2.8 mg/dL (2.8-20.0) Salicylate Last Dose Date Unknown Salicylate Last Dose Time Unknown Acetaminophen Level < 2 mcg/mL (10-30) Acetaminophen Last Dose Date Unknown Acetaminophen Last Dose Time Unknown SARS-CoV-2 Antigen (Rapid) Negative (NEGATIVE) Test 12/31/21 18:50 12/31/21 21:45 01/01/22 05:39 Troponin I High Sensitivity 6 ng/L (4-50) 7 ng/L (4-50) White Blood Count 5.9 x10^3/uL (4.0-11.0) Red Blood Count 4.28 x10^6/uL (3.50-5.40) Hemoglobin 12.5 g/dL (12.0-15.5) Hematocrit 38.1 % (36.0-47.0) Mean Corpuscular Volume 89 fL (79-100) Mean Corpuscular Hemoglobin 29 pg (25-35) Mean Corpuscular Hemoglobin Concent 33 g/dL (31-37) Red Cell Distribution Width 14.6 % (11.5-14.5) Platelet Count 171 x10^3/uL (140-400) Neutrophils (%) (Auto) 70 % (31-73) Lymphocytes (%) (Auto) 21 % (24-48) Monocytes (%) (Auto) 7 % (0-9) Eosinophils (%) (Auto) 1 % (0-3) Basophils (%) (Auto) 1 % (0-3) Neutrophils # (Auto) 4.1 x10^3uL (1.8-7.7) Lymphocytes # (Auto) 1.2 x10^3/uL (1.0-4.8) Monocytes # (Auto) 0.4 x10^3/uL (0.0-1.1) Eosinophils # (Auto) 0.1 x10^3/uL (0.0-0.7) Basophils # (Auto) 0.0 x10^3/uL (0.0-0.2) Sodium Level 142 mmol/L (136-145) Potassium Level 4.3 mmol/L (3.5-5.1) Chloride Level 109 mmol/L (98-107) Carbon Dioxide Level 26 mmol/L (21-32) Anion Gap 7 (6-14) Blood Urea Nitrogen 10 mg/dL (7-20) Creatinine 1.0 mg/dL (0.6-1.0) Estimated GFR (Cockcroft-Gault) 58.2 BUN/Creatinine Ratio 10 (6-20) Glucose Level 74 mg/dL (70-99) Calcium Level 8.1 mg/dL (8.5-10.1) Total Bilirubin 0.7 mg/dL (0.2-1.0) Aspartate Amino Transf (AST/SGOT) 25 U/L (15-37) Alanine Aminotransferase (ALT/SGPT) 33 U/L (14-59) Alkaline Phosphatase 138 U/L (46-116) Total Protein 6.0 g/dL (6.4-8.2) Albumin 3.1 g/dL (3.4-5.0) Albumin/Globulin Ratio 1.1 (1.0-1.7) ECHOCARDIOGRAM Echocardiogram <Conclusion> The left ventricular systolic function is normal and the ejection fraction is within normal range. EF 55% There is normal LV segmental wall motion. DATE: 05/24/21 [id number] HEART CATH Heart Cath Coronary angiography: LM: Large caliber vessel with normal angiographic appearance LAD: Moderate caliber vessel with a proximal 40-50% stenosis. The mid to distal LAD is diminutive in nature. D1: Small caliber vessel with normal angiographic appearance LCX: Moderate caliber non-dominant vessel with a patent mid stent. OM1: Small caliber vessel with normal angiographic appearance RCA: Large caliber dominant vessel with a proximal to mid 30% stenosis RPDA: Moderate caliber vessel with mild luminal irregularities. The RPDA and RPL extend to the apex. CLOSURE: At case completion the right radial sheath was removed and a Terumo radial band was applied with 11 mL of air. Hemostasis was achieved. COMPLICATIONS: No acute complications noted Conclusion 1. Normal left-sided filling pressures 2. Two-vessel coronary artery disease. 3. Patent stent in the left circumflex. Recommendations Aggressive Medical Therapy DATE: 05/23/21 [id number] ASSESSMENT/PLAN Assessment/Plan 1. Chest pain; AMI ruled out. Most probably anxiety related 2. CAD s/p PCI/stent in 2017. Follows with [facility] cardiology, Dr. Figueroa. [facility] 06/04 with patent LCx stent. No lesions needing intervention noted as above 3. Hypertension; controlled 4. Hyperlipidemia; statin 5. Anxiety, depression, SI; currently on 1:1 Recommendations Resume secondary prevention Recent ishcemic evaluation as noted No further cardiac workup warranted at this time Follow up with primary used car salesperson up discharge as previously scheduled SUSANNA LUX MD 01/03/22 1301: CARDIAC CONSULT ASSESSMENT/PLAN Assessment/Plan Late entry for 01/01/2022 Patient seen and examined. Agree with above nurse practitioner note KIM HUYNH APRN Jan 01, 2022 08:13 SUSNANA LUX MD Jan 03, 2022 13:01
[2022-01-01] MEDS: ONDANSETRON PF 4 MG/2 ML VIAL. IVP PRN (08:43)
[2022-01-01] MEDS ORDERED: ASPIRIN CHEWABLE 81 MG TABLET. PO SCH (09:00)
[2022-01-01] MEDS ORDERED: CLOPIDOGREL BISULFATE 75 MG TABLET PO SCH (09:00)
[2022-01-01] MEDS ORDERED: traZODone 100 MG TABLET. PO PRN (09:15)
[2022-01-01] MEDS ORDERED: clonazePAM 1 MG TABLET PO PRN (09:15)
[2022-01-01 11:00] VITALS: BP 87/58
[2022-01-01 14:43] VITALS: BP 106/59
[2022-01-01 15:00] VITALS: BP 106/59
[2022-01-01] MEDS ORDERED: busPIRone 10 MG TABLET. PO SCH (15:45)
[2022-01-01] MEDS ORDERED: QUEtiapine 50 MG TABLET. PO SCH (16:00)
--- NOTE | 2022-01-01 16:21 | HP ---
DATE OF SERVICE: 01/01/2022 ADMIT DATE: 12/31/2021 HISTORY OF PRESENT ILLNESS: The patient is a 51-year-old female patient, who presented to the Emergency Room with suicidal ideation. The patient reports that she went to the guidance center to follow up with her Crisis Center, but they stated that they no longer have the Crisis Center and service that she will need to go to the Emergency Room. This suicidal ideation and has been going on for almost a month. She stated that she has severe anxiety and panic attack. She has been doing nothing at home. In fact, her children take care of all the house chores in the week and her cooks and take care of the other house chores in weekend. She had a plan to kill herself by carbon monoxide, starting her car in a garage or cutting herself. She has never had any previous suicidal attempts. She denied any homicidal ideation. She apparently had an inpatient psychiatric treatment previously. She had a history of anxiety, depression and bipolar disorder. She takes Prozac, trazodone and BuSpar. She reports she has been taking these medications as directed. She has multiple other medical problems. She also reported that she has midsternal chest pain that radiates straight through to her back and said that this started this morning. On the morning of admission, she describes it as pressure. She did also report nausea, but denied any vomiting or shortness of breath or diaphoresis. She was extensively investigated in the Emergency Room, has had lab work and imaging studies. Her lab work showed that her CBC was unremarkable. Her chemistry was also unremarkable and her first set of cardiac enzymes showed troponin I high sensitivity to be only 6 ng/L. 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 PAST MEDICAL HISTORY: Significant for coronary artery disease status post myocardial infarction, status post PCI with stent deployment to left anterior descending. She has peripheral vascular disease, status post bilateral femoral stent deployment. She has also history of hyperlipidemia and depression and anxiety and bipolar disorder. PAST SURGICAL HISTORY: Significant for PCI with stent deployment as well as cholecystectomy. ALLERGIES: She is allergic to PENICILLIN, SULFA DRUGS and CYPROHEPTADINE. MEDICATIONS: She is currently on the following medications. She is on Plavix 75 mg once a day, atorvastatin calcium 80 mg at bedtime, aspirin 81 mg once a day, clonazepam 1 mg twice a day, lamotrigine 100 mg once a day, fluoxetine 80 mg once a day, trazodone 150 mg at bedtime and quetiapine fumarate 50 mg twice a day, quetiapine fumarate 200 mg at bedtime. She is on risperidone 1 mg at bedtime, risperidone 20 mg twice a day, hydroxyzine hydrochloride 50 mg twice a day, Colace 100 mg twice a day, ondansetron 4 mg every 6-8 hours, Protonix 40 mg once a day. FAMILY HISTORY: She has 1 brother and 1 sister older and 1 brother younger, who are all healthy. Her father at age of 55 because of COPD and muscular dystrophy. Mother because of complication of Lewy body dementia. SOCIAL HISTORY: She is , has 2 daughters and 1 son. She quit smoking 2 years ago. She smoked a pack a day since she was 15 years old. She does not drink alcohol or recreational drugs. She used to work for [employer]; however, she stopped working since the COVID-19 pandemic started. REVIEW OF SYSTEMS: As per history of present illness. PHYSICAL EXAMINATION: GENERAL: On arrival to the Emergency Room, the patient looked well and was clearly in no apparent respiratory distress. No pallor, jaundice, cyanosis. No lymphadenopathy, no thyromegaly, no jugular venous distention. No limb edema. VITAL SIGNS: Her heart rate was 102, blood pressure was 130/75, temperature was 98.2, respiratory rate was 16 and oxygen saturation was 100% on room air. HEAD, EYES, EARS, NOSE, AND THROAT: Normocephalic, atraumatic. NECK: Supple. HEART: Showed normal first and second heart sounds. No gallop, rub or murmur. CHEST: Clear to auscultation, no crepitation or rhonchi. ABDOMEN: Distended, soft, nontender. NEUROLOGIC: She was awake, alert, responding appropriately. All cranial nerves intact. She moves extremities without difficulty. PSYCHOLOGICAL: The patient clearly depressed, the patient can maintain eye-to-eye contact. LABORATORY DATA: On arrival showed a white cell count 7.5, hemoglobin 14, hematocrit 43, MCV 89 and platelet count of 197,000. Her chemistry showed a serum sodium 139, potassium 4, chloride 102, bicarbonate 26, anion gap of 11, BUN 11, creatinine 1.2. Estimated GFR was 47 mL per minute. Her glucose was 90, calcium was 9.8. Total bilirubin, AST, ALT normal. Alkaline phosphatase were elevated. Total protein 7.3, albumin 4. Her urinalysis essentially was negative for nitrite and leukocyte esterase. There was trace of blood, moderate amount of bacteria, 1-4 wbc's. Her toxic screen was negative. Her coronavirus by PCR and rapid antigen testing are negative. Her chest x-ray showed no consolidation, pleural effusion, normal heart size, no pneumothorax. ASSESSMENT AND PLAN: The patient was admitted with suicidal ideation with a plan to commit suicide by carbon monoxide. She will start her car in garage or cut herself. She also complained of a chest pain and her first set of cardiac enzyme was negative. We will do two more sets of cardiac enzyme and we consulted the Cardiology and also we have consulted the psychiatric assessment team. She will have one-on-one sitter and we will decide the further management accordingly. JANINE DR: Anayeli TID: [id number]
[2022-01-01] MEDS ORDERED: DOCUSATE SODIUM 100 MG CAPSULE PO SCH (21:00)
[2022-01-01] MEDS ORDERED: risperiDONE 1 MG TABLET. PO SCH (21:00)
[2022-01-01] MEDS ORDERED: NON FORMULARY ITEM (Atorvastatin Calcium 80 MG) PO SCH (21:00)
[2022-01-01] MEDS ORDERED: hydrOXYzine HCL 25 MG TABLET PO SCH (21:00)
[2022-01-01] MEDS ORDERED: traZODone 150 MG TABLET. PO SCH (21:00)
[2022-01-01] MEDS ORDERED: QUEtiapine 100 MG TABLET. PO SCH (21:00)
[2022-01-01] MEDS ORDERED: ATORVASTATIN CALCIUM 20 MG TABLET PO SCH (21:00)
--- NOTE | 2022-01-02 02:52 | PN ---
DATE: 01/01/2022 SUBJECTIVE: The patient is resting, slightly propped up in bed, in no apparent distress. She continued to have suicidal ideation. She did also complain of retrosternal chest pain. Has had 3 sets of cardiac enzymes that ruled out myocardial infarction. She was seen in consultation by the Cardiology team and apparently she had had recent ischemic evaluation that showed that she has normal left-sided filling pressure, 2-vessel coronary artery disease, and patent stent to the left circumflex and the recommendation for aggressive medical therapy. The Cardiology team did not recommend any further cardiac workup and to follow with her primary time clock inspector upon discharge. PHYSICAL EXAMINATION: GENERAL: When I examined her, she looked well and was clearly in no apparent respiratory distress. No pallor, jaundice, cyanosis or thyromegaly. No jugular venous distention. No lower limb edema. VITAL SIGNS: Her heart rate was 70, blood pressure is 106/59, temperature 96.7, respiratory rate was 20 and oxygen saturation was 93% on room air. The rest of clinical exam is stable, has not changed. LABORATORY DATA: Her white cell count this morning was 5.9, hemoglobin 12.5, hematocrit 38, MCV 89 and platelet count of 171,000 with normal manual differential. Her chemistry showed a serum sodium of 142, potassium 4.3, chloride 109, bicarbonate 26, anion gap of 7, BUN 10, creatinine 1, estimated GFR was 58 mL per minute. Her glucose was 74, calcium was 8.1. Total bilirubin, AST, ALT were normal. Alkaline phosphatase was slightly elevated at 138. Total protein 6, albumin 3.1. She has 4 sets of cardiac enzymes, ruled out acute myocardial infarction. Her urinalysis was unremarkable. Toxic screen was negative and her coronavirus by PCR was negative. ASSESSMENT AND PLAN: So all in all, the patient is medically stable. She was seen by the psychiatric assessment team and she was referred to [facility]. If she is accepted, she can definitely be discharged. MIRANDA DR: Anayeli TID: [id number]
[2022-01-02] MEDS ORDERED: lamoTRIgine 100 MG TABLET. PO SCH (09:00)
[2022-01-02] MEDS ORDERED: ASPIRIN ENTERIC COATED 81 MG TABLET.DR. PO SCH (09:00)
== END 2022-01-01 18:15 ==
LOC: ER 13:28 → ER HOLD 15:22 → 1 SOUTH 15:44
PROVIDERS: ADMIT Hospitalist; ATTEND Hospitalist
DX: R45.851 Suicidal ideations (principal); Z20.822 Contact with and (suspected) exposure to COVID-19; R07.89 Other chest pain; I10 Essential (primary) hypertension; I25.10 Atherosclerotic heart disease of native coronary artery without angina pectoris; I25.2 Old myocardial infarction; I73.9 Peripheral vascular disease, unspecified; E78.00 Pure hypercholesterolemia, unspecified; E78.5 Hyperlipidemia, unspecified; F31.9 Bipolar disorder, unspecified; F41.0 Panic disorder [episodic paroxysmal anxiety]; Z87.891 Personal history of nicotine dependence; Z95.5 Presence of coronary angioplasty implant and graft; Z90.49 Acquired absence of other specified parts of digestive tract; Z79.899 Other long term (current) drug therapy; Z98.890 Other specified postprocedural states; Z95.1 Presence of aortocoronary bypass graft; Z79.82 Long term (current) use of aspirin
CPT/HCPCS: 36415; 71045; 80053; 80307; 80329; 81001; 84484; 85025; 87077; 87086; 87426; 93005; 96361; 96374; 96376; 99285; G0378; J2405; J7030; U0003; G0379; G0480